=== PATIENT | male | born 1950 | race Caucasian/White ===

== ENCOUNTER → 2017-05-27 | Outpatient (CLI) | payer MEDICARE, SELFPAY | PROVIDERS: PCP Internal Medicine Adolescent Medicine; Visit Provider Internal Medicine Adolescent Medicine | DX: R91.1 Solitary pulmonary nodule (principal) | CPT/HCPCS: 71250 ==

== ENCOUNTER 2017-07-08 11:22 | Outpatient (CLI) | payer MEDICARE, SELFPAY ==
[2017-07-08 15:04] LABS: PHA INR Fingerstick 1.8 (0.9-1.1)
== END 2017-07-08 15:24 | disposition home or self-care (01) ==
PROVIDERS: Internal Medicine; PCP Internal Medicine Adolescent Medicine; Visit Provider Internal Medicine Adolescent Medicine
DX: Z79.01 Long term (current) use of anticoagulants (principal); I48.91 Unspecified atrial fibrillation; Z51.81 Encounter for therapeutic drug level monitoring
CPT/HCPCS: 85610

== ENCOUNTER 2017-07-29 10:50 | Outpatient (CLI) | payer MEDICARE, SELFPAY | END 2017-07-29 11:59 | disposition home or self-care (01) | LOC: ACC 10:52 | PROVIDERS: Family Provider Internal Medicine Adolescent Medicine; PCP Internal Medicine Adolescent Medicine; Visit Provider Internal Medicine | DX: Z79.01 Long term (current) use of anticoagulants (principal); Z51.81 Encounter for therapeutic drug level monitoring; I48.91 Unspecified atrial fibrillation | CPT/HCPCS: 85610; 99211; G0463 ==

== ENCOUNTER 2017-09-16 10:56 | Outpatient (CLI) | payer MEDICARE, SELFPAY ==
[2017-09-16 13:39] LABS: PHA INR Fingerstick 2.8 (0.9-1.1)
== END 2017-09-16 13:56 | disposition home or self-care (01) ==
LOC: ACC 10:57
PROVIDERS: Family Provider Internal Medicine Adolescent Medicine; PCP Internal Medicine Adolescent Medicine; Visit Provider Internal Medicine
DX: Z79.01 Long term (current) use of anticoagulants (principal); Z51.81 Encounter for therapeutic drug level monitoring; I48.91 Unspecified atrial fibrillation
CPT/HCPCS: 85610; 99211; G0463

== ENCOUNTER 2017-10-19 09:23 | Outpatient (CLI) | payer MEDICARE, SELFPAY ==
[2017-10-19 14:40] LABS: PHA INR Fingerstick 2.2 (0.9-1.1)
== END 2017-10-19 14:55 | disposition home or self-care (01) ==
LOC: ACC 09:24
PROVIDERS: Family Provider Internal Medicine Adolescent Medicine; PCP Internal Medicine Adolescent Medicine; Visit Provider Internal Medicine
DX: Z79.01 Long term (current) use of anticoagulants (principal); I48.91 Unspecified atrial fibrillation
CPT/HCPCS: 85610; 99211; G0463

== ENCOUNTER → 2017-12-02 10:48 | Outpatient (CLI) | payer MEDICARE, SELFPAY | PROVIDERS: Physician Assistant; PCP Internal Medicine Adolescent Medicine; Visit Provider Internal Medicine | DX: Z79.01 Long term (current) use of anticoagulants (principal); Z51.81 Encounter for therapeutic drug level monitoring | CPT/HCPCS: 85610; 99211; G0463 ==

== ENCOUNTER 2018-01-12 10:51 | Outpatient (CLI) | payer MEDICARE, SELFPAY ==
[2018-01-12 16:04] LABS: PHA INR Fingerstick 1.9 (0.9-1.1)
== END 2018-01-12 16:08 | disposition home or self-care (01) ==
LOC: ACC 10:53
PROVIDERS: PCP Internal Medicine Adolescent Medicine; Visit Provider Internal Medicine
DX: Z79.01 Long term (current) use of anticoagulants (principal); Z51.81 Encounter for therapeutic drug level monitoring; I48.91 Unspecified atrial fibrillation
CPT/HCPCS: 85610; 99211; G0463

== ENCOUNTER → 2018-01-25 13:20 | Outpatient (CLI) | payer MEDICARE, SELFPAY ==
--- NOTE | 2018-01-25 13:22 | CA_ITS ---
PROCEDURE: 2-D M-mode and color Doppler study INDICATIONS FOR THE TEST: Chest pain COPD+ Heart Murmur Tobacco Smoking+ Palpitations+ Fatigue Syncope Edema Hypertension+Diabetes Mellitus Rheumatic Fever SOB CHERY Obesity Hyperlipidemia+ Family History HD Additional History afib PATIENT INFORMATION HEIGHT: 71 WEIGHT:184 GENDER: Male B/P:126/71 2-D/M-MODE INTERPRETATION: 2-D MEASUREMENTS OBSERVED VALUES IN CMS Right Ventricular Dimension (RVDd) 2.0 Interventricular Septum (Thickness)(IVsd) 1.0 Left Ventricular Internal Dimensions(LVIDd) 5.2 Left Ventricular Posterior Wall (Thickness)(LVPWd) 1.0 Aortic Root 2.3 Aortic Cusp Separation 1.8 Left Atrial Dimensions (LAD) 3.3 2D 1. Left atrium is qualitatively mildly enlarged, left ventricle is normal size, visually estimated ejection fraction 55% with no obvious regional wall motion abnormality. 2. The right atrium and right ventricle are normal size and contractility. 3. The aortic valve is minimally thickened and fibrosed. 4. The mitral and tricuspid valve leaflets are grossly normal. 5. The pulmonic valve is poorly visualized. 6. No significant pericardial effusion noted. DOPPLER INTERROGATION: Doppler interrogation of the aortic, mitral and tricuspid valvular presence of moderate mitral and mild tricuspid regurgitation, tricuspid regurgitation jet velocity is insufficient for calculation of the right ventricular systolic pressure, grade 1 diastolic dysfunction seen with tissue Doppler evidence of raised left atrial pressure. CONCLUSION: 1. Mildly enlarged left atrium, normal left ventricular size, visually estimated ejection fraction of 55% with no obvious regional wall motion abnormality, grade 1 diastolic dysfunction seen with tissue Doppler evidence of raised left atrial pressure. 2. Moderate mitral and mild tricuspid regurgitation 3. No significant pericardial effusion noted.
== END ==
PROVIDERS: Family Provider Internal Medicine Adolescent Medicine; PCP Internal Medicine Adolescent Medicine; Visit Provider Internal Medicine
DX: I48.91 Unspecified atrial fibrillation (principal); R00.2 Palpitations; I25.10 Atherosclerotic heart disease of native coronary artery without angina pectoris; I10 Essential (primary) hypertension
CPT/HCPCS: 93306

== ENCOUNTER 2018-02-23 10:54 | Outpatient (CLI) | payer MEDICARE, SELFPAY ==
[2018-02-23 16:19] LABS: PHA INR Fingerstick 3.1 (0.9-1.1)
== END 2018-02-23 16:21 | disposition home or self-care (01) ==
LOC: ACC 10:55
PROVIDERS: PCP Internal Medicine Adolescent Medicine; Visit Provider Internal Medicine
DX: Z51.81 Encounter for therapeutic drug level monitoring (principal); Z79.01 Long term (current) use of anticoagulants; I48.91 Unspecified atrial fibrillation
CPT/HCPCS: 85610; 99211; G0463

== ENCOUNTER → 2018-03-02 10:49 | Outpatient (CLI) | payer MEDICARE, SELFPAY ==
[2018-03-02 12:10] LABS: Blood Urea Nitrogen 12 mg/dL (7-18); Calcium 8.7 mg/dL (8.5-10.1); Carbon Dioxide 28 mmol/L (21.0-32.0); Chloride 105 mmol/L (98-107); Creatinine,Serum 0.91 mg/dL (0.70-1.30); Estimated Glomerular Filt Rate 83 ml/min (>60); GFR (African American) 100 ML/MIN (>60); Glucose 89 mg/dL (74-106); Sodium 142 mmol/L (136-145)
== END ==
PROVIDERS: PCP Internal Medicine Adolescent Medicine; Visit Provider Physician Assistant
DX: F17.200 Nicotine dependence, unspecified, uncomplicated (principal); I10 Essential (primary) hypertension; I25.10 Atherosclerotic heart disease of native coronary artery without angina pectoris; I34.0 Nonrheumatic mitral (valve) insufficiency; I48.91 Unspecified atrial fibrillation; J44.9 Chronic obstructive pulmonary disease, unspecified; R00.2 Palpitations; Z79.01 Long term (current) use of anticoagulants
CPT/HCPCS: 36415; 80048

== ENCOUNTER 2018-03-23 10:53 | Outpatient (CLI) | payer MEDICARE, SELFPAY ==
[2018-03-23 13:36] LABS: PHA INR Fingerstick 2.2 (0.9-1.1)
== END 2018-03-23 13:41 | disposition home or self-care (01) ==
LOC: ACC 10:54
PROVIDERS: Family Provider Internal Medicine Adolescent Medicine; PCP Internal Medicine Adolescent Medicine; Visit Provider Internal Medicine
DX: Z51.81 Encounter for therapeutic drug level monitoring (principal); Z79.01 Long term (current) use of anticoagulants; I48.91 Unspecified atrial fibrillation
CPT/HCPCS: 85610; 99211; G0463

== ENCOUNTER 2018-05-10 10:47 | Outpatient (CLI) | payer MEDICARE, SELFPAY ==
[2018-05-10 11:31] LABS: PHA INR Fingerstick 2.3 (0.9-1.1)
== END 2018-05-10 11:36 | disposition home or self-care (01) ==
LOC: ACC 10:49
PROVIDERS: PCP Internal Medicine Adolescent Medicine; Visit Provider Internal Medicine
DX: Z51.81 Encounter for therapeutic drug level monitoring (principal); Z79.01 Long term (current) use of anticoagulants; I48.91 Unspecified atrial fibrillation
CPT/HCPCS: 85610; 99211; G0463

== ENCOUNTER 2018-05-13 10:51 | Outpatient (CLI) | payer MEDICARE, SELFPAY ==
[2018-05-13 12:11] LABS: PHA INR Fingerstick 1.9 (0.9-1.1)
== END 2018-05-13 13:52 | disposition home or self-care (01) ==
LOC: ACC 10:52
PROVIDERS: PCP Internal Medicine Adolescent Medicine; Visit Provider Internal Medicine
DX: Z51.81 Encounter for therapeutic drug level monitoring (principal); Z79.01 Long term (current) use of anticoagulants; I48.91 Unspecified atrial fibrillation
CPT/HCPCS: 85610; 99211; G0463

== ENCOUNTER 2018-06-03 10:43 | Outpatient (CLI) | payer MEDICARE, SELFPAY ==
[2018-06-03 14:44] LABS: PHA INR Fingerstick 2.1 (0.9-1.1)
== END 2018-06-03 15:07 | disposition home or self-care (01) ==
LOC: ACC 10:43
PROVIDERS: PCP Internal Medicine Adolescent Medicine; Visit Provider Internal Medicine
DX: Z51.81 Encounter for therapeutic drug level monitoring (principal); Z79.01 Long term (current) use of anticoagulants; I48.91 Unspecified atrial fibrillation
CPT/HCPCS: 85610; 99211; G0463

== ENCOUNTER 2018-07-15 10:54 | Outpatient (CLI) | payer MEDICARE, SELFPAY ==
[2018-07-15 16:37] LABS: PHA INR Fingerstick 1.9 (0.9-1.1)
== END 2018-07-15 16:41 | disposition home or self-care (01) ==
LOC: ACC 10:56
PROVIDERS: PCP Internal Medicine Adolescent Medicine; Visit Provider Internal Medicine
DX: Z51.81 Encounter for therapeutic drug level monitoring (principal); Z79.01 Long term (current) use of anticoagulants; I48.91 Unspecified atrial fibrillation
CPT/HCPCS: 85610; 99211; G0463

== ENCOUNTER → 2018-07-22 17:24 | Outpatient (CLI) | payer MEDICARE, SELFPAY ==
--- NOTE | 2018-07-22 17:39 | XR_ITS ---
XR knee LT 3V HISTORY: ITS.REASON: POSTERIOR LEFT KNEE PAIN, SYNOVIAL CYST OF THE KNEE ORDERING PHYSICIAN: Tre Biswas MD PATIENT AGE: 67 years COMPARISON: None FINDINGS: No fracture or dislocation. Small suprapatellar effusion is noted. There is a small calcific density medial to the lateral tibial spine consistent with a small loose intra-articular body measuring 4 mm. This is in the popliteal region on the lateral view. There are slight decrease in the joint space medially consistent with mild osteoarthritis IMPRESSION: Mild osteoarthritis with small knee joint effusion and intra-articular small loose body
== END ==
PROVIDERS: PCP Internal Medicine Adolescent Medicine; Visit Provider Internal Medicine Adolescent Medicine
DX: M25.562 Pain in left knee (principal); M71.22 Synovial cyst of popliteal space [Baker], left knee
CPT/HCPCS: 73562

== ENCOUNTER 2018-08-09 10:52 | Outpatient (CLI) | payer MEDICARE, SELFPAY ==
[2018-08-09 11:39] LABS: PHA INR Fingerstick 2.6 (0.9-1.1)
== END 2018-08-09 11:45 | disposition home or self-care (01) ==
LOC: ACC 10:52
PROVIDERS: Physician Assistant; PCP Internal Medicine Adolescent Medicine; Visit Provider Internal Medicine
DX: Z51.81 Encounter for therapeutic drug level monitoring (principal); Z79.01 Long term (current) use of anticoagulants; I48.91 Unspecified atrial fibrillation
CPT/HCPCS: 85610; 99211; G0463

== ENCOUNTER 2018-09-14 11:28 | Outpatient (CLI) | payer MEDICARE, SELFPAY ==
[2018-09-14 15:11] LABS: PHA INR Fingerstick 2.2 (0.9-1.1)
== END 2018-09-14 15:25 | disposition home or self-care (01) ==
LOC: ACC 11:28
PROVIDERS: PCP Internal Medicine Adolescent Medicine; Visit Provider Internal Medicine
DX: Z51.81 Encounter for therapeutic drug level monitoring (principal); Z79.01 Long term (current) use of anticoagulants; I48.91 Unspecified atrial fibrillation
CPT/HCPCS: 85610; 99211; G0463

== ENCOUNTER 2018-10-26 11:27 | Outpatient (CLI) | payer MEDICARE, SELFPAY ==
[2018-10-26 14:38] LABS: PHA INR Fingerstick 2.6 (0.9-1.1)
== END 2018-10-26 14:42 | disposition home or self-care (01) ==
LOC: ACC 11:28
PROVIDERS: PCP Internal Medicine Adolescent Medicine; Visit Provider Internal Medicine Adolescent Medicine
DX: Z51.81 Encounter for therapeutic drug level monitoring (principal); Z79.01 Long term (current) use of anticoagulants; I48.91 Unspecified atrial fibrillation
CPT/HCPCS: 85610; 99211; G0463

== ENCOUNTER 2018-12-07 11:21 | Outpatient (CLI) | payer MEDICARE, SELFPAY ==
[2018-12-07 12:07] LABS: PHA INR Fingerstick 3.3 (0.9-1.1)
== END 2018-12-07 12:09 | disposition home or self-care (01) ==
LOC: ACC 11:22
PROVIDERS: PCP Internal Medicine Adolescent Medicine; Visit Provider Internal Medicine
DX: Z51.81 Encounter for therapeutic drug level monitoring (principal); Z79.01 Long term (current) use of anticoagulants; I48.91 Unspecified atrial fibrillation
CPT/HCPCS: 85610; 99211; G0463

== ENCOUNTER 2019-01-16 10:56 | Outpatient (CLI) | payer MEDICARE, SELFPAY ==
[2019-01-16 11:24] LABS: PHA INR Fingerstick 2.5 (0.9-1.1)
== END 2019-01-16 11:25 | disposition home or self-care (01) ==
LOC: ACC 10:57
PROVIDERS: PCP Internal Medicine Adolescent Medicine; Visit Provider Internal Medicine Adolescent Medicine
DX: Z51.81 Encounter for therapeutic drug level monitoring (principal); Z79.01 Long term (current) use of anticoagulants; I48.91 Unspecified atrial fibrillation
CPT/HCPCS: 85610; 99211; G0463

== ENCOUNTER 2019-02-23 11:24 | Outpatient (CLI) | payer MEDICARE, SELFPAY ==
[2019-02-23 14:41] LABS: PHA INR Fingerstick 2.6 (0.9-1.1)
== END 2019-02-23 14:51 | disposition home or self-care (01) ==
LOC: ACC 11:25
PROVIDERS: PCP Internal Medicine Adolescent Medicine; Visit Provider Internal Medicine Adolescent Medicine
DX: Z51.81 Encounter for therapeutic drug level monitoring (principal); Z79.01 Long term (current) use of anticoagulants; I48.91 Unspecified atrial fibrillation
CPT/HCPCS: 85610; 99211; G0463

== ENCOUNTER → 2019-02-27 12:35 | Outpatient (CLI) | payer MEDICARE, SELFPAY ==
--- NOTE | 2019-02-27 12:35 | CA_ITS ---
APPROVED REPORT EXAM: Comprehensive 2D, Doppler, and color-flow Echocardiogram [employer] Salvager: Carmelita Wharton RVT Ht: 5 ft 10 in Wt: 192lbs BSA: 2.05 BP: 132/76 mmHg Indications: Atrial Fibrillation, CAD, Hypertension,Smoker,Mod MR 2D Dimensions IVSd 1.20 cm M: 0.6-1.2 LVEF (Visual) 79.40 % PWd 1.50 cm M: 0.6 - 1.2 LVDd 3.60 cm M: 4.2 - 5.9 LVDs 1.90 cm M: 2.5 - 4.0 LVOT 2.00 cm (M/F) 1.5-2.5 M-Mode Dimensions LA Diam 3.60 cm (1.9-4.0) LVDd 5.60 cm (3.5-5.7) Ao Diam 3.20 cm (2.0-3.7) LVDs 3.60 cm (3.5-5.7) AV Cusp 1.70 cm (1.5-2.6) IVSd 0.80 cm (0.6-1.1) PWd 1.00 cm (0.6-1.1) EF (Teich) 64.70% FS 35.70% EDV (Teich) 154.00 mL ESV (Teich) 54.40 mL LV Diastology E/A Ratio 0.8 MED E' 7.70 (< 7 cm/sec) E'/MED E' Ratio 10.10 (>14) LAT E' 10.60 (<10 cm/sec) E/LAT E' Ratio 7.30 (>14) Aortic Valve AoV Peak Kendell. 132.00 (50-130 cm/s) AO Peak GR. 7.00 mmHg Mitral Valve MV E Max Kendell. 77.50 (40-130 cm/s) MV A Velocity 96.70 (40-130 cm/s) E/A Ratio 0.80 MV Mean Gr. 2.00 (<2mmHg) MV PHT 90.00 ms MVA PHT 2.4 cm2 Pulmonary Valve PA Accel Time 239.00 (>120 msec) Tricuspid Valve TR P. Velocity 318.00 cm/s Left Ventricle Left atrium is mildly enlarged, left ventricle is normal size, mild concentric left ventricular hypertrophy, visually estimated ejection fraction 55% with no regional wall motion abnormality, endocardial surfaces are somewhat poorly visualized. Grade 1 diastolic dysfunction seen without tissue Doppler evidence of raise left atrial pressure. Right Ventricle Right atrium and right ventricular normal size and contractility. Aortic Valve Aortic valve is minimally thickened and fibrosed. There is no aortic stenosis aortic insufficiency. Mitral Valve Mitral valve leaflets are minimally thickened, there is no mitral stenosis, there is mild mitral regurgitation. Tricuspid Valve Tricuspid valve is grossly normal, there is mild tricuspid regurgitation. Tricuspid regurgitation jet velocity is inadequate for calculation of the right ventricular systolic pressure. Pulmonic Valve Pulmonic valve is poorly visualized. Great Vessels Aortic root is normal size. Pericardium No significant pericardial effusion noted. Conclusion 1. Mildly in the left atrium, normal left ventricular size, mild concentric left ventricular hypertrophy, visually estimated ejection fraction 55% with no regional wall motion abnormality, grade 1 diastolic dysfunction seen without tissue Doppler evidence of raise left atrial pressure. 2. Mild mitral and tricuspid regurgitation. 3. No significant pericardial effusion noted. Electronically signed by : Fly Thrasher, 02/28/2019 06:28:24
== END ==
PROVIDERS: PCP Internal Medicine Adolescent Medicine; Visit Provider Physician Assistant
DX: I34.0 Nonrheumatic mitral (valve) insufficiency (principal); I48.2 Chronic atrial fibrillation
CPT/HCPCS: 93306

== ENCOUNTER 2019-04-03 11:22 | Outpatient (CLI) | payer MEDICARE, SELFPAY ==
[2019-04-03 11:45] LABS: PHA INR Fingerstick 2.3 (0.9-1.1)
== END 2019-04-03 11:46 | disposition home or self-care (01) ==
LOC: ACC 11:23
PROVIDERS: PCP Internal Medicine Adolescent Medicine; Visit Provider Internal Medicine Adolescent Medicine
DX: Z51.81 Encounter for therapeutic drug level monitoring (principal); Z79.01 Long term (current) use of anticoagulants; I48.91 Unspecified atrial fibrillation
CPT/HCPCS: 85610; 99211; G0463

== ENCOUNTER 2019-05-15 11:29 | Outpatient (CLI) | payer MEDICARE, SELFPAY ==
[2019-05-15 14:26] LABS: PHA INR Fingerstick 2.9 (0.9-1.1)
== END 2019-05-15 15:34 | disposition home or self-care (01) ==
LOC: ACC 11:30
PROVIDERS: PCP Internal Medicine Adolescent Medicine; Visit Provider Internal Medicine Adolescent Medicine
DX: Z51.81 Encounter for therapeutic drug level monitoring (principal); Z79.01 Long term (current) use of anticoagulants
CPT/HCPCS: 85610; 99211; G0463

== ENCOUNTER 2019-06-26 11:21 | Outpatient (CLI) | payer MEDICARE, SELFPAY ==
[2019-06-26 13:41] LABS: PHA INR Fingerstick 2.8 (0.9-1.1)
== END 2019-06-26 13:49 | disposition home or self-care (01) ==
PROVIDERS: PCP Internal Medicine Adolescent Medicine; Visit Provider Internal Medicine Adolescent Medicine
DX: Z51.81 Encounter for therapeutic drug level monitoring (principal); Z79.01 Long term (current) use of anticoagulants; I48.91 Unspecified atrial fibrillation
CPT/HCPCS: 85610; 99211; G0463

== ENCOUNTER → 2019-07-05 16:10 | Outpatient (CLI) | payer MEDICARE, SELFPAY ==
[2019-07-05 16:44] LABS: Basophils # 0.1 K/mm3 (0-0.2); Basophils % 0.8 % (0.1-2.0); Eosinophils # 0.4 K/mm3 (0.0-0.4); Eosinophils % 4.3 % (0.1-12.0); Hematocrit 44.3 % (42.0-52.0); Hemoglobin 14.3 g/dL (14.1-18.0); Lymphocytes # 2.5 K/mm3 (0.7-4.5); Lymphocytes % 24.6 % (10-50); Mean Corpuscular HGB Conc 32.3 g/dL (31.8-35.4); Mean Corpuscular Hemoglobin 29.9 pg (27.0-31.2); Mean Corpuscular Volume 92.5 fl (80-94); Mean Platelet Volume 9.3 fl (7.4-10.4); Monocytes # 0.5 K/mm3 (0.1-1.0); Monocytes % 4.7 % (1.7-9.3); Neutrophils # 6.7 K/mm3 (1.8-7.8); Neutrophils % 65.5 % (37.0-80.0); Platelet Count 265 K/mm3 (142-424); Red Blood Count 4.79 M/mm3 (4.60-6.20); Red Cell Distribution Width 12.8 % (11.5-17.5); White Blood Count 10.3 K/mm3 (4.8-10.8)
[2019-07-05 17:56] LABS: Prothrombin Time 24.9 seconds (9.4-11.8)
[2019-07-05 19:47] LABS: Alanine Aminotransferase 32 U/L (12-78); Albumin Level 3.6 gm/dL (3.4-5.0); Alkaline Phosphatase 103 U/L (46-116); Anion Gap 11.5 mEq/L (5-15); Aspartate Amino Transferase 25 U/L (15-37); Bilirubin,Total 0.3 mg/dL (0.2-1.0); Blood Urea Nitrogen 16 mg/dL (7-18); Calcium 8.9 mg/dL (8.5-10.1); Carbon Dioxide 30 mmol/L (21.0-32.0); Chloride 105 mmol/L (98-107); Chol/HDL Ratio 3.4 (1-3.5); Cholesterol 144 mg/dL (140-200); Creatinine,Serum 1.11 mg/dL (0.70-1.30); Estimated Glomerular Filt Rate 66 ml/min (>60); GFR (African American) 79 ML/MIN (>60); Globulin 3.7 gm/dl (1.3-3.2); Glucose 86 mg/dL (74-106); HDL Cholesterol 42 mg/dL (27-67); LDL Cholesterol 64 mg/dL (0-130); Potassium 4.5 mmoL/L (3.5-5.1); Sodium 142 mmol/L (136-145); Thyroid Stimulating Hormone 0.87 uIU/ml (0.358-3.740); Total Protein,Serum 7.3 gm/dL (6.4-8.2); Triglycerides 190 mg/dL (30-200); VLDL Cholesterol 38 mg/dL (0-40)
== END ==
PROVIDERS: Visit Provider Internal Medicine Adolescent Medicine
DX: I48.0 Paroxysmal atrial fibrillation (principal); E78.5 Hyperlipidemia, unspecified
CPT/HCPCS: 36415; 80053; 80061; 84443; 85025; 85610

== ENCOUNTER 2019-08-07 13:23 | Outpatient (CLI) | payer MEDICARE, SELFPAY | END 2019-08-07 14:49 | disposition home or self-care (01) | LOC: ACC 13:24 | PROVIDERS: PCP Internal Medicine Adolescent Medicine; Visit Provider Internal Medicine Adolescent Medicine | DX: Z51.81 Encounter for therapeutic drug level monitoring (principal); Z79.01 Long term (current) use of anticoagulants; I48.91 Unspecified atrial fibrillation | CPT/HCPCS: 85610; 99211; G0463 ==

== ENCOUNTER 2019-11-01 09:16 | Outpatient (CLI) | payer MEDICARE, SELFPAY ==
[2019-11-01 11:30] LABS: PHA INR Fingerstick 1.9 (0.9-1.1)
== END 2019-11-01 11:52 | disposition home or self-care (01) ==
LOC: ACC 09:17
PROVIDERS: PCP Internal Medicine Adolescent Medicine; Visit Provider Internal Medicine Adolescent Medicine
DX: Z51.81 Encounter for therapeutic drug level monitoring (principal); Z79.01 Long term (current) use of anticoagulants; I48.91 Unspecified atrial fibrillation
CPT/HCPCS: 85610; 99211; G0463

== ENCOUNTER 2019-12-13 10:52 | Outpatient (CLI) | payer MEDICARE, SELFPAY ==
[2019-12-13 16:26] LABS: PHA INR Fingerstick 2.2 (0.9-1.1)
== END 2019-12-13 16:27 | disposition home or self-care (01) ==
LOC: ACC 10:53
PROVIDERS: PCP Internal Medicine Adolescent Medicine; Visit Provider Internal Medicine Adolescent Medicine
DX: Z51.81 Encounter for therapeutic drug level monitoring (principal); Z79.01 Long term (current) use of anticoagulants; I48.91 Unspecified atrial fibrillation
CPT/HCPCS: 85610; 99211; G0463

== ENCOUNTER 2020-01-17 10:53 | Outpatient (CLI) | payer MEDICARE, SELFPAY ==
[2020-01-17 14:16] LABS: PHA INR Fingerstick 1.8 (0.9-1.1)
== END 2020-01-17 14:18 | disposition home or self-care (01) ==
LOC: ACC 10:54
PROVIDERS: PCP Internal Medicine Adolescent Medicine; Visit Provider Internal Medicine Adolescent Medicine
DX: I48.20 Chronic atrial fibrillation, unspecified (principal)
CPT/HCPCS: 85610; 99211; G0463

== ENCOUNTER 2020-02-07 10:24 | Outpatient (CLI) | payer MEDICARE, SELFPAY ==
[2020-02-07 11:01] LABS: PHA INR Fingerstick 2.3 (0.9-1.1)
== END 2020-02-07 11:05 | disposition home or self-care (01) ==
LOC: ACC 10:26
PROVIDERS: PCP Internal Medicine Adolescent Medicine; Visit Provider Internal Medicine Adolescent Medicine
DX: Z51.81 Encounter for therapeutic drug level monitoring (principal); Z79.01 Long term (current) use of anticoagulants; I48.91 Unspecified atrial fibrillation
CPT/HCPCS: 85610; 99211; G0463

== ENCOUNTER 2020-08-14 10:30 | Outpatient (CLI) | payer MEDICARE, SELFPAY ==
[2020-08-14 11:33] LABS: PHA INR Fingerstick 2.5 (0.9-1.1)
== END 2020-08-14 11:36 | disposition home or self-care (01) ==
LOC: ACC 10:31
PROVIDERS: PCP Internal Medicine Adolescent Medicine; Visit Provider Internal Medicine Adolescent Medicine
DX: Z51.81 Encounter for therapeutic drug level monitoring (principal); Z79.01 Long term (current) use of anticoagulants; I48.91 Unspecified atrial fibrillation
CPT/HCPCS: 85610; 99211; G0463

== ENCOUNTER 2020-09-25 10:57 | Outpatient (CLI) | payer MEDICARE, SELFPAY ==
[2020-09-25 12:48] LABS: PHA INR Fingerstick 2.4 (0.9-1.1)
== END 2020-09-25 12:52 | disposition home or self-care (01) ==
LOC: ACC 10:58
PROVIDERS: PCP Internal Medicine Adolescent Medicine; Visit Provider Internal Medicine Adolescent Medicine
DX: Z51.81 Encounter for therapeutic drug level monitoring (principal); Z79.01 Long term (current) use of anticoagulants; I48.91 Unspecified atrial fibrillation
CPT/HCPCS: 85610; 99211; G0463

== ENCOUNTER → 2020-12-10 15:55 | Outpatient (CLI) | payer MEDICARE, SELFPAY ==
[2020-12-10 17:04] LABS: Bilirubin,Unconjugated 0.1 mg/dL (0.0-1.1)
[2020-12-10 17:05] LABS: Alanine Aminotransferase 25 U/L (12-78); Albumin Level 4.2 g/dl (3.5-5.0); Alkaline Phosphatase 115 U/L (38-126); Aspartate Amino Transferase 30 U/L (17-59); Bilirubin,Direct 0.3 mg/dl (0.0-0.4); Bilirubin,Indirect 0.1 mg/dL (0.0-0.9); Bilirubin,Total 0.4 mg/dl (0.2-1.3); Chol/HDL Ratio 3.1 (1-3.5); Cholesterol 138 mg/dl (140-200); HDL Cholesterol 45 mg/dl (40-60); Total Protein,Serum 7.2 g/dl (6.3-8.2); Triglycerides 158 mg/dl (30-150); VLDL Cholesterol 32 mg/dL (0-40)
[2020-12-10 17:16] LABS: Direct LDL Cholesterol 64.41 mg/dL (100-129)
== END ==
PROVIDERS: Visit Provider Urology
DX: E78.5 Hyperlipidemia, unspecified (principal); F17.200 Nicotine dependence, unspecified, uncomplicated; I10 Essential (primary) hypertension; I25.10 Atherosclerotic heart disease of native coronary artery without angina pectoris; I48.20 Chronic atrial fibrillation, unspecified; Z79.01 Long term (current) use of anticoagulants; J44.1 Chronic obstructive pulmonary disease with (acute) exacerbation; Z51.81 Encounter for therapeutic drug level monitoring
CPT/HCPCS: 36415; 80061; 80076

== ENCOUNTER 2020-12-17 09:25 | Outpatient (CLI) | payer MEDICARE, SELFPAY ==
[2020-12-17 10:16] LABS: PHA INR Fingerstick 2.5 (0.9-1.1)
== END 2020-12-17 10:19 | disposition home or self-care (01) ==
LOC: ACC 09:26
PROVIDERS: PCP Internal Medicine Adolescent Medicine; Visit Provider Internal Medicine Adolescent Medicine
DX: Z51.81 Encounter for therapeutic drug level monitoring (principal); Z79.01 Long term (current) use of anticoagulants
CPT/HCPCS: 85610; 99211; G0463

== ENCOUNTER → 2021-01-15 07:20 | Outpatient (CLI) | payer MEDICARE, SELFPAY ==
--- NOTE | 2021-01-15 07:27 | CT_ITS ---
PROCEDURE: CT LUNG SCREENING CLINICAL INDICATION: CURRENT SMOKER COMPARISON: CT [facility] CT CHEST W/O CONTRAST from 05/27/2017 TECHNIQUE: The exam was performed on a GE Light Speed [address] scanner using 2.90 mGy CTDI. A low dose helical CT CHEST was performed on a multi-detector scanner. All CT scans at the facility use one or more dose reduction, viz: automated exposure control, ma/kV adjustment per patient size (including targeted exams where dose is matched to indication, i.e. head), or iterative reconstruction technique. The LDCT was performed in a facility that meets the criteria for the screening program. Data regarding this exam was submitted to ACR which is an approved registry. The order for this exam indicates that it came as a result of a lung cancer screening counseling shard decision-making visit that included all the elements required of such a visit including smoking cessation. The radiologist interpreting this exam meets the CMS criteria for the LDCT lung cancer screening program. The exam is reported using the Lung-RADS classification scale and reported to the ACR registry. NOTE: This study was performed for the specific purposes of lung cancer screening and is not an alternative to diagnostic chest CT. RADIATION DOSE: CTDI vol(CT dose Index-volume) = 2.90mG DLP (Dose Length Product) = 107.5 MGy-cm FINDINGS: There are few scattered small/less than 4 mm nodular opacities some of which are calcified. No suspicious nodules evident. COPD changes with bronchial thickening OTHER FINDINGS: Mild dilatation of the proximal aspect of the SMA at 1.3 cm not significantly changed. Gynecomastia. There are few small mediastinal lymph nodes unchanged. IMPRESSION: Lung-RADS Category 2 Benign Appearance or Behavior Follow-up: Continue annual screening with LDCT in 12 months Dictated by: Marcio East MD 01/20/2021 06:59 Marcio East MD in [place] 01/20/2021 06:59
== END ==
PROVIDERS: PCP Internal Medicine Adolescent Medicine; Visit Provider Internal Medicine Adolescent Medicine
DX: Z87.891 Personal history of nicotine dependence (principal); Z12.2 Encounter for screening for malignant neoplasm of respiratory organs
CPT/HCPCS: 71271

== ENCOUNTER 2021-01-28 10:38 | Outpatient (CLI) | payer MEDICARE, SELFPAY ==
[2021-01-28 11:36] LABS: PHA INR Fingerstick 2.6 (0.9-1.1)
== END 2021-01-28 15:20 | disposition home or self-care (01) ==
LOC: ACC 10:39
PROVIDERS: PCP Internal Medicine Adolescent Medicine; Visit Provider Internal Medicine Adolescent Medicine
DX: Z51.81 Encounter for therapeutic drug level monitoring (principal); Z79.01 Long term (current) use of anticoagulants; I48.91 Unspecified atrial fibrillation
CPT/HCPCS: 85610; 99211; G0463

== ENCOUNTER → 2021-03-07 20:03 | Outpatient (CLI) | payer MEDICARE, SELFPAY ==
[2021-03-07 20:01] LABS: Coronavirus 19, PCR Not Detected (NotDetected); Influenza A, PCR Not Detected (NotDetected); Influenza B, PCR Not Detected (NotDetected)
== END ==
PROVIDERS: Visit Provider Nurse Practitioner Family
DX: Z20.822 Contact with and (suspected) exposure to COVID-19 (principal)
CPT/HCPCS: C9803; U0003; U0005

== ENCOUNTER → 2021-03-10 08:24 | Outpatient (CLI) | payer MEDICARE, SELFPAY | PROVIDERS: Visit Provider Nurse Practitioner Family | DX: Z20.822 Contact with and (suspected) exposure to COVID-19 (principal) | CPT/HCPCS: C9803; U0003; U0005 ==

== ENCOUNTER 2021-03-26 13:30 | Outpatient (CLI) | payer MEDICARE, SELFPAY ==
[2021-03-26 14:25] LABS: PHA INR Fingerstick 2.5 (0.9-1.1)
== END 2021-03-26 16:21 | disposition home or self-care (01) ==
LOC: ACC 13:32
PROVIDERS: PCP Internal Medicine Adolescent Medicine; Visit Provider Internal Medicine
DX: Z51.81 Encounter for therapeutic drug level monitoring (principal); Z79.01 Long term (current) use of anticoagulants; I48.91 Unspecified atrial fibrillation
CPT/HCPCS: 85610; 99211; G0463

== ENCOUNTER 2021-04-28 10:51 | Outpatient (CLI) | payer MEDICARE, SELFPAY ==
[2021-04-28 11:23] LABS: PHA INR Fingerstick 2.4 (0.9-1.1)
== END 2021-04-28 11:27 | disposition home or self-care (01) ==
LOC: ACC 10:52
PROVIDERS: PCP Internal Medicine Adolescent Medicine; Visit Provider Internal Medicine Adolescent Medicine
DX: Z51.81 Encounter for therapeutic drug level monitoring (principal); Z79.01 Long term (current) use of anticoagulants; I48.91 Unspecified atrial fibrillation
CPT/HCPCS: 85610; 99211; G0463

== ENCOUNTER 2021-06-16 14:32 | Outpatient (CLI) | payer MEDICARE, SELFPAY ==
[2021-06-16 15:26] LABS: PHA INR Fingerstick 1.8 (0.9-1.1)
== END 2021-06-16 15:26 | disposition home or self-care (01) ==
LOC: ACC 14:34
PROVIDERS: PCP Internal Medicine Adolescent Medicine; Visit Provider Internal Medicine Adolescent Medicine
DX: Z51.81 Encounter for therapeutic drug level monitoring (principal); Z79.01 Long term (current) use of anticoagulants; I48.91 Unspecified atrial fibrillation
CPT/HCPCS: 85610; 99211; G0463

== ENCOUNTER → 2021-06-25 15:09 | Outpatient (CLI) | payer MEDICARE, SELFPAY ==
[2021-06-25 15:13] LABS: Adenovirus,PCR Not Detected (NotDetected); Bordetella Pertussis Not Detected (NotDetected); Chlamydophila Pneumoniae, PCR Not Detected (NotDetected); Coronavirus 19, PCR Not Detected (NotDetected); Coronavirus 229E Not Detected (NotDetected); Coronavirus NL63 Not Detected (NotDetected); Coronavirus OC43 Not Detected (NotDetected); Coronovirus HKU1,PCR Not Detected (NotDetected); Human Metapneumovirus Not Detected (NotDetected); Influenza A, PCR Not Detected (NotDetected); Influenza AH1, 2009 Not Detected (NotDetected); Influenza AH1, PCR Not Detected (NotDetected); Influenza B, PCR Not Detected (NotDetected); Mycoplasma Pneumoniae, PCR Not Detected (NotDetected); Parainfluenza 1, PCR Not Detected (NotDetected); Parainfluenza 2, PCR Not Detected (NotDetected); Parainfluenza 3, PCR Not Detected (NotDetected); Parainfluenza 4, PCR Not Detected (NotDetected); Respiratory Syncytial Virus Not Detected (NotDetected); Rhinovirus/Enterovirus Not Detected (NotDetected)
[2021-06-25 18:31] LABS: Influenza AH3,PCR Detected (NotDetected)
== END ==
PROVIDERS: Visit Provider Emergency Medicine
DX: R05.9 Cough, unspecified (principal); Z20.822 Contact with and (suspected) exposure to COVID-19; J11.1 Influenza due to unidentified influenza virus with other respiratory manifestations
CPT/HCPCS: 87581; 87632; 87798; C9803; U0003; U0005

== ENCOUNTER 2021-07-07 10:56 | Outpatient (CLI) | payer MEDICARE, SELFPAY ==
[2021-07-07 15:01] LABS: PHA INR Fingerstick 2.4 (0.9-1.1)
== END 2021-07-07 15:19 | disposition home or self-care (01) ==
LOC: ACC 10:57
PROVIDERS: PCP Internal Medicine Adolescent Medicine; Visit Provider Internal Medicine Adolescent Medicine
DX: Z51.81 Encounter for therapeutic drug level monitoring (principal); Z79.01 Long term (current) use of anticoagulants; I48.91 Unspecified atrial fibrillation
CPT/HCPCS: 85610; 99211; G0463

== ENCOUNTER 2021-08-18 10:53 | Outpatient (CLI) | payer MEDICARE, SELFPAY ==
[2021-08-18 16:41] LABS: PHA INR Fingerstick 2.1 (0.9-1.1)
== END 2021-08-18 16:44 | disposition home or self-care (01) ==
LOC: ACC 10:54
PROVIDERS: PCP Internal Medicine Adolescent Medicine; Visit Provider Internal Medicine Adolescent Medicine
DX: Z51.81 Encounter for therapeutic drug level monitoring (principal); Z79.01 Long term (current) use of anticoagulants; I48.91 Unspecified atrial fibrillation
CPT/HCPCS: 85610; 99211; G0463

== ENCOUNTER 2021-09-29 11:00 | Outpatient (CLI) | payer MEDICARE, SELFPAY ==
[2021-09-29 14:52] LABS: PHA INR Fingerstick 1.9 (0.9-1.1)
== END 2021-09-29 15:01 | disposition home or self-care (01) ==
LOC: ACC 11:00
PROVIDERS: PCP Internal Medicine Adolescent Medicine; Visit Provider Internal Medicine Adolescent Medicine
DX: Z51.81 Encounter for therapeutic drug level monitoring (principal); Z79.01 Long term (current) use of anticoagulants; I48.91 Unspecified atrial fibrillation
CPT/HCPCS: 85610; 99211; G0463

== ENCOUNTER 2021-11-10 10:54 | Outpatient (CLI) | payer MEDICARE, SELFPAY ==
[2021-11-10 13:56] LABS: PHA INR Fingerstick 2.2 (0.9-1.1)
== END 2021-11-10 14:43 | disposition home or self-care (01) ==
LOC: ACC 10:56
PROVIDERS: PCP Internal Medicine Adolescent Medicine; Visit Provider Internal Medicine Adolescent Medicine
DX: Z51.81 Encounter for therapeutic drug level monitoring (principal); Z79.01 Long term (current) use of anticoagulants; I48.91 Unspecified atrial fibrillation
CPT/HCPCS: 85610; 99211; G0463

== ENCOUNTER 2021-12-22 10:50 | Outpatient (CLI) | payer MEDICARE, SELFPAY | END 2021-12-22 11:37 | disposition home or self-care (01) | LOC: ACC 10:52 | PROVIDERS: PCP Internal Medicine Adolescent Medicine; Visit Provider Internal Medicine Adolescent Medicine | DX: Z51.81 Encounter for therapeutic drug level monitoring (principal); Z79.01 Long term (current) use of anticoagulants | CPT/HCPCS: 85610; 99211; G0463 ==

== ENCOUNTER 2022-02-04 15:08 | Outpatient (CLI) | payer MEDICARE, SELFPAY ==
[2022-02-04 15:36] LABS: PHA INR Fingerstick 2.2 (0.9-1.1)
== END 2022-02-04 15:51 | disposition home or self-care (01) ==
LOC: ACC 15:09
PROVIDERS: PCP Internal Medicine Adolescent Medicine; Visit Provider Internal Medicine Adolescent Medicine
DX: Z51.81 Encounter for therapeutic drug level monitoring (principal); Z79.01 Long term (current) use of anticoagulants; I48.91 Unspecified atrial fibrillation
CPT/HCPCS: 85610; 99211; G0463

== ENCOUNTER → 2022-03-16 11:05 | Outpatient (CLI) | payer MEDICARE, SELFPAY ==
[2022-03-16 14:59] LABS: PHA INR Fingerstick 2.1 (0.9-1.1)
== END ==
PROVIDERS: PCP Internal Medicine Adolescent Medicine; Visit Provider Internal Medicine Adolescent Medicine
DX: Z51.81 Encounter for therapeutic drug level monitoring (principal); Z79.01 Long term (current) use of anticoagulants; I48.91 Unspecified atrial fibrillation
CPT/HCPCS: 85610; 99211; G0463

== ENCOUNTER 2022-04-27 10:49 | Outpatient (CLI) | payer MEDICARE, SELFPAY ==
[2022-04-27 13:48] LABS: PHA INR Fingerstick 2.1 (0.9-1.1)
== END 2022-04-27 13:54 ==
LOC: ACC 10:50
PROVIDERS: PCP Internal Medicine Adolescent Medicine; Visit Provider Internal Medicine Adolescent Medicine
DX: Z51.81 Encounter for therapeutic drug level monitoring (principal); Z79.01 Long term (current) use of anticoagulants; I48.91 Unspecified atrial fibrillation
CPT/HCPCS: 85610; 99211; G0463

== ENCOUNTER 2022-06-08 10:59 | Outpatient (CLI) | payer MEDICARE, SELFPAY | END 2022-06-08 15:56 | LOC: ACC 11:02 | PROVIDERS: PCP Internal Medicine Adolescent Medicine; Visit Provider Internal Medicine Adolescent Medicine | DX: Z51.81 Encounter for therapeutic drug level monitoring (principal); Z79.01 Long term (current) use of anticoagulants; I48.91 Unspecified atrial fibrillation | CPT/HCPCS: 85610; 99211; G0463 ==

== ENCOUNTER 2022-07-20 10:59 | Outpatient (CLI) | payer MEDICARE, SELFPAY ==
[2022-07-20 11:18] LABS: PHA INR Fingerstick 1.9 (0.9-1.1)
== END 2022-07-20 11:19 ==
LOC: ACC 11:00
PROVIDERS: PCP Internal Medicine Adolescent Medicine; Visit Provider Internal Medicine Adolescent Medicine
DX: Z51.81 Encounter for therapeutic drug level monitoring (principal); Z79.01 Long term (current) use of anticoagulants; I48.91 Unspecified atrial fibrillation
CPT/HCPCS: 85610; 99211; G0463

== ENCOUNTER 2022-08-31 10:53 | Outpatient (CLI) | payer MEDICARE, SELFPAY | END 2022-08-31 11:27 | LOC: ACC 10:54 | PROVIDERS: PCP Internal Medicine Adolescent Medicine; Visit Provider Internal Medicine Adolescent Medicine | DX: Z51.81 Encounter for therapeutic drug level monitoring (principal); Z79.01 Long term (current) use of anticoagulants; I48.91 Unspecified atrial fibrillation | CPT/HCPCS: 85610; 99211; G0463 ==

== ENCOUNTER 2022-11-06 10:54 | Outpatient (CLI) | payer MEDICARE, SELFPAY ==
[2022-11-06 14:11] LABS: PHA INR Fingerstick 2.2 (0.9-1.1)
== END 2022-11-06 14:12 ==
LOC: ACC 10:55
PROVIDERS: PCP Internal Medicine Adolescent Medicine; Visit Provider Internal Medicine Adolescent Medicine
DX: Z51.81 Encounter for therapeutic drug level monitoring (principal); Z79.01 Long term (current) use of anticoagulants; I48.91 Unspecified atrial fibrillation
CPT/HCPCS: 85610; 99211; G0463

== ENCOUNTER 2022-12-18 10:51 | Outpatient (CLI) | payer MEDICARE, SELFPAY ==
[2022-12-18 12:56] LABS: PHA INR Fingerstick 2.2 (0.9-1.1)
== END 2022-12-18 15:13 ==
LOC: ACC 10:51
PROVIDERS: PCP Internal Medicine Adolescent Medicine; Visit Provider Internal Medicine Adolescent Medicine
DX: Z79.01 Long term (current) use of anticoagulants (principal); Z51.81 Encounter for therapeutic drug level monitoring
CPT/HCPCS: 85610; 99211; G0463

== ENCOUNTER 2023-03-05 11:35 | Outpatient (CLI) | payer MEDICARE, SELFPAY ==
[2023-03-05 15:10] LABS: PHA INR Fingerstick 2.6 (0.9-1.1)
== END 2023-03-05 15:29 ==
LOC: ACC 11:37
PROVIDERS: PCP Internal Medicine Adolescent Medicine; Visit Provider Internal Medicine Adolescent Medicine
DX: Z79.01 Long term (current) use of anticoagulants (principal); Z51.81 Encounter for therapeutic drug level monitoring; I48.91 Unspecified atrial fibrillation
CPT/HCPCS: 85610; 99211; G0463

== ENCOUNTER 2023-04-09 11:20 | Outpatient (CLI) | payer MEDICARE, SELFPAY ==
[2023-04-09 14:44] LABS: PHA INR Fingerstick 2.6 (0.9-1.1)
== END 2023-04-09 14:59 ==
LOC: ACC 11:21
PROVIDERS: PCP Internal Medicine Adolescent Medicine; Visit Provider Internal Medicine Adolescent Medicine
DX: Z79.01 Long term (current) use of anticoagulants (principal); Z51.81 Encounter for therapeutic drug level monitoring; I48.91 Unspecified atrial fibrillation
CPT/HCPCS: 85610; 99211; G0463

== ENCOUNTER 2023-05-21 11:10 | Outpatient (CLI) | payer MEDICARE, SELFPAY | END 2023-05-21 11:42 | LOC: ACC 11:11 | PROVIDERS: PCP Internal Medicine Adolescent Medicine; Visit Provider Internal Medicine Adolescent Medicine | DX: Z79.01 Long term (current) use of anticoagulants (principal); Z51.81 Encounter for therapeutic drug level monitoring | CPT/HCPCS: 85610; 99211; G0463 ==

== ENCOUNTER 2023-06-18 12:42 | Outpatient (CLI) | payer MEDICARE, SELFPAY ==
--- NOTE | 2023-06-18 12:46 | CT_ITS ---
FINAL REPORT TECHNIQUE: Axial CT images of the chest were obtained without contrast. Low-dose protocol was utilized. This study was performed with techniques to keep radiation doses as low as reasonably achievable (ALARA). Individualized dose reduction techniques using automated exposure control or adjustment of mA and/or kV according to the patient's size were employed. CLINICAL HISTORY: H/O TOBACCO USE CURRENT SMOKER 1/2PPD X45 YEARS COMPARISON: 01/15/2021 FINDINGS: CT CHEST WITHOUT, LOW DOSE SCREENING CT Di Vol: 2.90 mGy DLP: 107.86 mGy*cm There are small mediastinal nodes. The heart size is normal. There are moderate coronary artery calcifications. There is no pleural or pericardial effusion. There is mild emphysema. Several calcified granulomas are noted. The lung windows show no new suspicious mass or nodule. There is mild dilatation of the proximal celiac axis which is stable. Limited images of the upper abdomen demonstrate no acute findings. IMPRESSION: LR Category 1: 12 month follow-up low-dose chest CT is recommended. Reviewed, Interpreted and Dictated by Stanley Duckworth III, MD Transcribed by Rachel Mcdaniel Authenticated and [facility]
== END 2023-06-18 23:59 ==
LOC: RAD 12:42
PROVIDERS: PCP Internal Medicine Adolescent Medicine; Visit Provider Internal Medicine Adolescent Medicine
DX: Z87.891 Personal history of nicotine dependence (principal)
CPT/HCPCS: 71271

== ENCOUNTER 2023-07-02 10:53 | Outpatient (CLI) | payer MEDICARE, SELFPAY ==
[2023-07-02 14:02] LABS: PHA INR Fingerstick 2.4 (0.9-1.1)
== END 2023-07-02 14:41 ==
PROVIDERS: PCP Internal Medicine Adolescent Medicine; Visit Provider Internal Medicine Adolescent Medicine
DX: Z79.01 Long term (current) use of anticoagulants (principal); Z51.81 Encounter for therapeutic drug level monitoring; I48.91 Unspecified atrial fibrillation
CPT/HCPCS: 85610; 99211; G0463

== ENCOUNTER 2023-09-06 10:24 | Outpatient (CLI) | payer MEDICARE, SELFPAY | END 2023-09-06 15:34 | LOC: ACC 10:25 | PROVIDERS: PCP Internal Medicine Adolescent Medicine; Visit Provider Internal Medicine Adolescent Medicine | DX: Z79.01 Long term (current) use of anticoagulants (principal); Z51.81 Encounter for therapeutic drug level monitoring; I48.91 Unspecified atrial fibrillation | CPT/HCPCS: 85610; 99211; G0463 ==

== ENCOUNTER 2024-03-03 19:52 | Emergency (ER) | payer MEDICARE, SELFPAY ==
[2024-03-03 19:53] VITALS: BP 167/88; PULSE 78; RESP 19; TEMP 36.8; O2SAT 95; BMI 26.4
--- NOTE | 2024-03-03 20:01 | CT_ITS ---
PROCEDURE INFORMATION: Exam: CT Cervical Spine Without Contrast Exam date and time: 03/03/2024 8:23 PM Age: 73 years old Clinical indication: Injury or trauma; Fall TECHNIQUE: Imaging protocol: Computed tomography of the cervical spine without contrast. Radiation optimization: All CT scans at this facility use at least one of these dose optimization techniques: automated exposure control; mA and/or kV adjustment per patient size (includes targeted exams where dose is matched to clinical indication); or iterative reconstruction. COMPARISON: CT FACIAL BONES WO CON 03/03/2024 8:20 PM FINDINGS: Bones: No acute fracture. Severe degenerative disc space narrowing with moderate disc bulge and uncovertebral spurring throughout the cervical spine with relative sparing of the C2-C3 level. Severe multilevel facet arthropathy with mild grade 1 anterolisthesis of C7. Moderate degenerative changes noted in the atlantodental joint. Right facial fractures partially visualized, as described in the facial bone CT report Lungs: Lung apices are normal. Soft tissues: Unremarkable. IMPRESSION: No acute fracture in the cervical spine. Severe multilevel degenerative changes as noted. Partially visualized right facial fractures.
--- NOTE | 2024-03-03 20:01 | CT_ITS ---
PROCEDURE INFORMATION: Exam: CT Head Without Contrast Exam date and time: 03/03/2024 8:19 PM Age: 73 years old Clinical indication: Injury or trauma; Fall TECHNIQUE: Imaging protocol: Computed tomography of the head without contrast. Radiation optimization: All CT scans at this facility use at least one of these dose optimization techniques: automated exposure control; mA and/or kV adjustment per patient size (includes targeted exams where dose is matched to clinical indication); or iterative reconstruction. COMPARISON: No relevant prior studies available. FINDINGS: Brain: Mild generalized cerebral atrophy. No intracranial mass, hemorrhage or evidence of acute ischemia. Cerebral ventricles: No ventriculomegaly. Paranasal sinuses: Mild mucosal thickening in the right maxillary sinus. No fluid levels. Mastoid air cells: Visualized mastoid air cells are well aerated. Bones: Fractures of the right orbital floor as well as the anterior and posterior maguire of the right maxillary sinus noted. Soft tissues: Soft tissue swelling and gas noted about the right orbit and maxillary sinus. IMPRESSION: No acute intracranial abnormality. Right facial fractures as described.
--- NOTE | 2024-03-03 20:01 | CT_ITS ---
PROCEDURE INFORMATION: Exam: CT Maxillofacial Without Contrast Exam date and time: 03/03/2024 8:20 PM Age: 73 years old Clinical indication: Injury or trauma; Fall TECHNIQUE: Imaging protocol: Computed tomography of the face without contrast. Radiation optimization: All CT scans at this facility use at least one of these dose optimization techniques: automated exposure control; mA and/or kV adjustment per patient size (includes targeted exams where dose is matched to clinical indication); or iterative reconstruction. COMPARISON: CT FACIAL BONES WO CON 03/03/2024 8:20 PM FINDINGS: Orbital cavities: Eye globes appear intact. Intraorbital structures appear normal. No significant herniation of the intraorbital contents. Paranasal sinuses: Mild mucosal thickening and fluid in the right maxillary sinus. Sinuses are otherwise clear. Bones: Mildly displaced fracture involves the posterior aspect of the right orbital floor. There are mildly displaced fractures involving the anterior and posterior wall of the right maxillary sinus. Nondisplaced right zygomatic arch fracture. No other acute fracture. Soft tissues: Superficial right periorbital soft tissue swelling and emphysema as well as moderate amount of emphysema in the soft tissues about the right maxillary sinus. No prominent hematoma. IMPRESSION: Fractures of the right orbital floor, maxillary sinus and zygomatic arch with associated findings as described.
--- NOTE | 2024-03-03 20:03 | ED_ITS ---
<Statement entered by Ruthy Wang MD - 03/04/24 00:40> I was consulted by the [facility], and we discussed the complexity of problems being addressed. I approved the treatment and management plan for this patient's care in the emergency department, thus performing a substantive portion of the medical decision making. Ruthy Wang MD Discharge Plan Disposition Patient Disposition: Xfer Other Condition: Good Prescriptions Prescriptions: No Action acetaminophen 500 mg capsule 500 mg PO Q6H PRN (Reason: PAIN) aspirin [Adult Low Dose Aspirin] 81 mg tablet,delayed release (DR/EC) 81 mg PO ONCE bisoprolol-hydrochlorothiazide 10-6.25 mg tablet 1 tab PO ONCE finasteride 5 mg tablet 5 mg PO ONCE omeprazole 40 mg capsule,delayed release(DR/EC) 40 mg PO DAILY terazosin 5 mg capsule 5 mg PO QHS atorvastatin 40 mg tablet 40 mg PO ONCE warfarin 2.5 mg tablet 2.5 mg PO DAILY Patient Comments: Tue, Thru, David, Obdulia Reganztrkeysha Aerosphere 160-9-4.8 mcg/actuation HFA aerosol inhaler 2 inh INHALATION BID methylprednisolone [Medrol (Efrain)] 4 mg tablets,dose pack See Rx Instructions PO PER PKG DIR Qty: 21 0RF Rx Instructions: PO PER PKG DIR warfarin 5 mg tablet 5 mg PO DAILY Qty: 30 5RF Rx Instructions: take as directed azithromycin [Zithromax Z-Efrain] 250 mg tablet See Rx Instructions PO .COMPLEX Qty: 6 0RF Rx Instructions: For 250 mg dose pack: take 500 mg today (day 1), then 250 mg for 4 days (days 2-5) PO losartan 50 mg tablet See Rx Instructions .ROUTE .COMPLEX Qty: 30 0RF Dose Instruction: TAKE 1 TABLET EVERY DAY Rx Instructions: TAKE 1 TABLET EVERY DAY Referrals Follow up/Referrals: Tre Biswas MD [Primary Care Provider] - See instructions Clinical Impressions Clinical Impression: Orbital floor fracture, Maxillary fracture, Zygomatic arch fracture Stand Alone Forms Stand Alone Forms: Transfer Record - ED Print Language Print Language: Nigerien Discharge ED Provider: Ruthy Wang General Adult HPI General Chief complaint: Fall Stated complaint: ao 03/03, swelling in eye Time Seen by Provider: 03/03/24 19:55 Mode of Arrival: Ambulatory Source of Information: Patient Limitations: No Limitations Description of Symptoms (Recalled from ER Triage Doc. by RN): 73 M presents from home after a mechanical fall outside 1 hour ago. Patient reports hitting his right mandaeism on the wooden ramp and injured his right arm/hand. Patient takes Coumadin daily. Patient states he blew his nose afterwards and the right orbital area blew up. Patient has obvious swelling to this area. Denies LOC, vision changes, or other neurological deficit. Crepitus present on palpation. History of Present Illness HPI narrative: 73-year-old male presents to the ED today after falling on a wooden ramp falling onto his right arm and hand and falling over hitting his right mandaeism and right face. He says he went to blow his nose and had some blood and decided to come onto the hospital. He does take Coumadin every day for A-fib. He is unsure what his last INR was. He does have some bruising on his right wrist and hand but has good range of motion of his hand, wrist and elbow. No shoulder pain. Denies any loss of consciousness. Related Data Home Medications ?Medication ?Instructions ?Recorded ?Confirmed acetaminophen 500 mg capsule 500 mg PO Q6H PRN PAIN 07/12/17 12/11/20 aspirin 81 mg tablet,delayed 81 mg PO ONCE HEART 07/12/17 06/25/21 release (Adult Low Dose Aspirin) bisoprolol 10 1 tab PO ONCE BLOOD PRESSURE 07/12/17 06/25/21 mg-hydrochlorothiazide 6.25 mg tablet finasteride 5 mg tablet 5 mg PO ONCE PROSTATE 07/12/17 06/25/21 omeprazole 40 mg capsule,delayed 40 mg PO DAILY STOMACH 07/12/17 06/25/21 release terazosin 5 mg capsule 5 mg PO QHS PROSTATE 07/12/17 06/25/21 atorvastatin 40 mg tablet 40 mg PO ONCE Cholesterol 07/13/17 06/25/21 warfarin 2.5 mg tablet 2.5 mg PO DAILY Blood thinner 07/13/17 06/25/21 budesonide 160 mcg-glycopyr 9 2 inh inhalation BID 06/25/21 06/25/21 mcg-formot 4.8 mcg/actuation HFA inhaler (Breztri Aerosphere) Previous Rx's ?Medication ?Instructions ?Recorded warfarin 5 mg tablet 5 mg PO DAILY Blood thinner #30 12/23/18 tabs methylprednisolone 4 mg tablets in See Rx Instructions PO PER PKG DIR 06/25/21 a dose pack (Medrol (Efrain)) #21 tabs azithromycin 250 mg tablet See Rx Instructions PO .COMPLEX #6 09/01/21 (Zithromax Z-Efrain) tabs losartan 50 mg tablet See Rx Instructions .Route 07/27/23 .COMPLEX #30 tabs Allergies Allergy/AdvReac Type Severity Reaction Status Date / Time No Known Allergies Allergy Verified 06/25/21 11:06 [facility] Disclaimer: The information contained in this section may have been updated after the patient was seen, as this information can be updated by other users. Social History Smoking Status: Current every day smoker tobacco type: cigarettes second hand exposure: Yes alcohol intake: never substance use type: denies use current occupational status: employed and disabled Travel in the last 8 weeks: None caffeine: Yes ROS Obtained: Yes Systems reviewed as appropriate & no additional complaints except as documented Constitutional Constitutional: Reports system reviewed and no additional complaints, except as documented and Reports as per HPI Physical Exam General General appearance: alert and in no apparent distress Head Head exam: normocephalic Expanded Head Exam Head exam physical: Present abrasion and hematoma Eye Eye exam: Present PERRL, EOMI and periorbital tenderness (On right side) ENT ENT exam: Present normal exam, normal oropharynx and mucous membranes moist Neck Neck exam: Present normal inspection, full ROM and trachea midline Respiratory Respiratory exam: Present normal lung sounds bilaterally Cardiovascular Cardiovascular exam: Present regular rate, normal rhythm, normal heart sounds, +S1 and +S2 Abdominal Exam Abdominal exam: Present soft and normal bowel sounds Extremities Exam Extremities exam: Present normal inspection, full ROM, normal capillary refill and other (Bruising to right wrist and right hand) Neurological Exam Neurological exam: Present alert, oriented X3 and normal gait Skin Skin exam: Present warm, dry, erythema and other (Bruising to right wrist and right hand) Medical Decision Making Medical Records Screening: Per USPSTF and CDC recommendations, given the prevalence of disease in our region, it is our hospital?s policy to screen for HIV and viral Hepatitis for all patients aged 18 and over and those with ongoing risk factors. Hilario Inquiry Pt receiving controlled substance: No Hilario was queried for this patient: No Vital Signs: 03/03/24 19:53 03/03/24 20:30 03/03/24 21:21 Temperature 98.3 F 98.1 F Temperature Source Oral Tympanic Pulse Rate 70 68 Pulse Rate [Left] 78 Respiratory Rate 19 18 18 Blood Pressure 147/84 H 148/77 H Blood Pressure [Right Arm] 167/88 H Blood Pressure Mean 117 Blood Pressure Mean [Right Arm] 114 Blood Pressure Source Automatic Cuff Blood Pressure Source [Right Arm] Automatic Cuff Blood Pressure Position Sitting Blood Pressure Position [Right Arm] Sitting 02 Sat by Pulse Oximetry 95 97 Oxygen Delivery Method Room Air Room Air Room Air Lab Data Lab Results 03/03/24 20:10: WBC 13.5 H, RBC 4.62, Hgb 14.2, Hct 45.1, MCV 97.7 H, MCH 30.8, MCHC 31.5 L, RDW 12.8, Plt Count 294, MPV 9.2, Neut % (Auto) 78.7, Lymph % (Auto) 15.3, [place] % (Auto) 4.7, Eos % (Auto) 1.0, Baso % (Auto) 0.4, Neut # (Auto) 10.6 H, Lymph # (Auto) 2.1, [place] # (Auto) 0.6, Eos # (Auto) 0.1, Baso # (Auto) 0.1, PT 18.3 H, INR 1.72 H, Sodium 142, Potassium 3.5, Chloride 107, Carbon Dioxide 28, Anion Gap 10.5, BUN 22 H, Creatinine 1.50 H, Estimated Creat Clear 53, Estimated GFR 46 L, Est GFR ( Amer) 55 L, Glucose 117 H, Calcium 9.2, Total Bilirubin 0.5, AST 36, ALT 31, Alkaline Phosphatase 74, Total Protein 8.0, Albumin 4.5, Globulin 3.5 H, Albumin/Globulin Ratio 1.3, HIV 1&2 Antibody Rapid Nonreactive 03/03/24 20:10 03/03/24 20:10 Orders (Tests/Meds): ORDERS Category Date Time Status CT cervical spine wo con Stat Cat Scan 03/03/24 20:[address] facial bones wo con Stat Cat Scan 03/03/24 20:[address] head/brain wo con Stat Cat Scan 03/03/24 20:01 Completed CBC [Complete Blood Count Auto Diff] Stat Lab 03/03/24 20:10 Completed Comprehensive Metabolic Panel Stat Lab 03/03/24 20:10 Completed HIV (1&2) Antibody Rapid Stat Lab 03/03/24 20:10 Completed Hep C Ab with Reflex to RNA Stat Lab 03/03/24 20:10 Received PT/INR [Prothrombin Time INR] Stat Lab 03/03/24 20:10 Completed Medical Decision Narrative: Insert review patient is a 73-year-old male presenting to the emergency department for evaluation of mechanical fall prior to arrival. Patient is hemodynamically stable and nontoxic-appearing upon arrival, afebrile. Differential diagnosis includes head injury, hemorrhagic bleed from fall amongst others. Workup will be conducted with hematologic labs, specific imaging including CT of cervical spine, head and facial bones. Initial inventions include scan of head, neck, and face. Imaging informally interpreted by me and remarkable for facial fractures. Formal imaging read remarkable for right orbital floor, anterior and posterior maguire of the right maxillary sinus and right zygomatic arch fractures. Upon repeat evaluation patient's pain is improved. [facility] [place] [facility] Patient's family will take patient POV to the hospital. Critical Care Critical Care Time Critical Care Time: No
[2024-03-03 20:30] VITALS: BP 147/84; PULSE 70; RESP 18; O2SAT 97
[2024-03-03 20:35] LABS: Albumin Level 4.5 g/dl (3.5-5.0); Chloride 107 mmol/L (98-107); Potassium 3.5 mmoL/L (3.5-5.1); Sodium 142 mmol/L (136-145)
[2024-03-03 20:38] LABS: Alanine Aminotransferase 31 U/L (12-78); Albumin/Globulin Ratio 1.3 (1.1-1.8); Alkaline Phosphatase 74 U/L (38-126); Anion Gap 10.5 mEq/L (5-15); Aspartate Amino Transferase 36 U/L (17-59); Bilirubin,Total 0.5 mg/dl (0.2-1.3); Blood Urea Nitrogen 22 mg/dl (9-20); Calcium 9.2 mg/dl (8.4-10.2); Carbon Dioxide 28 mmol/L (22.0-30.0); Creatinine Clearance Estimated 53 mL/min (50-200); Estimated Glomerular Filt Rate 46 ml/min (>60); GFR (African American) 55 ML/MIN (>60); Globulin 3.5 g/dL (1.3-3.2); Glucose 117 mg/dl (74-100)
[2024-03-03 20:41] LABS: INR 1.72 (0.9-1.1); Prothrombin Time 18.3 seconds (10.1-12.5)
--- NOTE | 2024-03-03 20:43 | PC.NURSE ---
Lab called to report a delay in lab results r/t machine issues
[2024-03-03 21:11] LABS: Basophils # 0.1 K/mm3 (0-0.2); Basophils % 0.4 % (0.1-2.0); Eosinophils # 0.1 K/mm3 (0.0-0.4); Hematocrit 45.1 % (42.0-52.0); Hemoglobin 14.2 g/dL (14.1-18.0); Lymphocytes # 2.1 K/mm3 (0.7-4.5); Lymphocytes % 15.3 % (10-50); Mean Corpuscular HGB Conc 31.5 g/dL (31.8-35.4); Mean Corpuscular Hemoglobin 30.8 pg (27.0-31.2); Mean Corpuscular Volume 97.7 fl (80-94); Mean Platelet Volume 9.2 fl (7.4-10.4); Monocytes # 0.6 K/mm3 (0.1-1.0); Monocytes % 4.7 % (1.7-9.3); Neutrophils # 10.6 K/mm3 (1.8-7.8); Neutrophils % 78.7 % (37.0-80.0); Platelet Count 294 K/mm3 (142-424); Red Blood Count 4.62 M/mm3 (4.60-6.20); Red Cell Distribution Width 12.8 % (11.5-17.5); White Blood Count 13.5 K/mm3 (4.8-10.8)
[2024-03-03 21:15] LABS: HIV (1&2) Antibody Rapid NONREACTIVE (NONREACTIVE)
[2024-03-03 21:21] VITALS: BP 148/77; PULSE 68; RESP 18; TEMP 36.7; O2SAT 96
[2024-03-05 08:11] LABS: HCV Ab Non Reactive (Non Reactive)
== END 2024-03-03 21:43 | disposition other institution (70) ==
PROVIDERS: Nurse Practitioner; Emergency Provider Student in an Organized Health Care Education/Training Program; PCP Internal Medicine Adolescent Medicine
DX: S02.31XA Fracture of orbital floor, right side, initial encounter for closed fracture (principal); S02.40CA Maxillary fracture, right side, initial encounter for closed fracture; S02.40EA Zygomatic fracture, right side, initial encounter for closed fracture; S60.221A Contusion of right hand, initial encounter; S60.211A Contusion of right wrist, initial encounter; W17.89XA Other fall from one level to another, initial encounter
CPT/HCPCS: 70450; 70486; 72125; 80053; 85025; 85610; 86803; 87389; 99285

== ENCOUNTER 2024-07-05 11:00 | Outpatient (CLI) | payer MEDICARE, SELFPAY ==
[2024-07-05 11:48] LABS: PHA INR Fingerstick 2.4 (0.9-1.1)
== END 2024-07-05 11:49 ==
PROVIDERS: PCP Internal Medicine Adolescent Medicine; Visit Provider Internal Medicine Adolescent Medicine
DX: Z79.01 Long term (current) use of anticoagulants (principal); I48.91 Unspecified atrial fibrillation
CPT/HCPCS: 85610; 99211; G0463

== ENCOUNTER 2024-08-16 10:57 | Outpatient (CLI) | payer MEDICARE, SELFPAY ==
[2024-08-16 12:54] LABS: PHA INR Fingerstick 2.8 (0.9-1.1)
== END 2024-08-16 12:56 ==
LOC: ACC 10:57
PROVIDERS: PCP Internal Medicine Adolescent Medicine; Visit Provider Internal Medicine Adolescent Medicine
DX: I48.91 Unspecified atrial fibrillation (principal); Z79.01 Long term (current) use of anticoagulants
CPT/HCPCS: 85610; 99211; G0463

== ENCOUNTER 2024-10-11 10:51 | Outpatient (CLI) | payer MEDICARE, SELFPAY ==
[2024-10-11 11:50] LABS: PHA INR Fingerstick 2.6 (0.9-1.1)
== END 2024-10-11 13:40 ==
LOC: ACC 10:51
PROVIDERS: PCP Internal Medicine Adolescent Medicine; Visit Provider Internal Medicine Adolescent Medicine
DX: Z79.01 Long term (current) use of anticoagulants (principal); I48.91 Unspecified atrial fibrillation
CPT/HCPCS: 85610; 99211; G0463

== ENCOUNTER 2024-11-22 10:56 | Outpatient (CLI) | payer MEDICARE, SELFPAY ==
--- OUTSIDE RECORDS SUMMARY | 2024-09-09 17:30 | XMS_ITS ---
Author Organization [facility] Address [address] [facility] [address] [place] [address] Care Team Providers Care Dimension Warehouse Supervisor Name Role Phone Keshav Biswashen Primary Care Provider [phone] Migration, Provider Unavailable Un[facility] Conversion Encounter Medications Medication SIG (Take, Route, Frequency, Duration) Notes Start Date End Date Status Tylenol Extra Strength 500 MG 2 tab(s) orally Q6H prn Active Fenofibrate 54 MG 1 tab(s) orally once a day for 90 days Active Breztri Aerosphere 160 MCG-4.8 MCG-9 MCG/INH 2 PUFF(S) INHALED 2 TIMES A DAY for 90 DAYS *Please review and pick correct strength-formulatio n from [employer] options. If intended option is not shown, discontinue and re-order from Quick Search* Active Multivitamin MULTIPLE VITAMINS 1 CAP(S) ORALLY ONCE A DAY *Please review and pick correct strength-formulatio n from [employer] options. If intended option is not shown, discontinue and re-order from Quick Search* Active Finasteride 5 MG 1 tab(s) orally once a day for 90 days Active Warfarin Sodium 5 MG 1 tab(s) orally 1 tab on MWF and 1/2 tab all other days for 90 days Active Atorvastatin Calcium 40 MG 1 tab(s) orally once a day for 90 days Active Omeprazole 40 MG 1 cap(s) orally once a day for 90 days Active Terazosin HCl 5 MG 1 cap(s) orally once a day (at bedtime) for 90 days Active Bisoprolol-hydroCHLOR Othiazide 10/6.25MG 1 TAB(S) ORALLY ONCE A DAY for 90 DAYS *Please review and pick correct strength-formulatio n from [employer] options. If intended option is not shown, discontinue and re-order from Quick Search* Active Encounters Encounter Location Date Provider Diagnosis [facility] MAL [address] [place], [place] [address] 09/09/2024 Provider Migration Hyperlipemia, idiopathic familial E78.5 [...] 54 MG 1 tab(s) orally once a day for 90 days Breztri Aerosphere 160 MCG-4.8 MCG-9 MCG/INH 2 PUFF(S) INHALED 2 TIMES A DAY for 90 DAYS *Please review and pick correct strength-formulation from [employer] options. If intended option is not shown, discontinue and re-order from Quick Search* Finasteride 5 MG 1 tab(s) orally once a day for 90 days Warfarin Sodium 5 MG 1 tab(s) orally 1 tab on MWF and 1/2 tab all other days for 90 days Atorvastatin Calcium 40 MG 1 tab(s) orally once a day for 90 days Omeprazole 40 MG 1 cap(s) orally once a day for 90 days Terazosin HCl 5 MG 1 cap(s) orally once a day (at bedtime) for 90 days Bisoprolol-hydroCHLOROth iazide 10/6.25MG 1 TAB(S) ORALLY ONCE A DAY for 90 DAYS *Please review and pick correct strength-formulation from [employer] options. If intended option is not shown, discontinue and re-order from Quick Search* Progress Notes * Dami WAGONER:1950 (74 yo M)Acc No.[id number]:09/09/2024 Patient: Tae RICK Provider: Moses Dalal :1950 A ge:74 Y S ex:Male Date:09/09/2024 Address:[facility] [place], [id number] Pcp:Tre Biswas Subjective: * Chief Complaints: * [...] Electronic signature of Prov ider Migration on 11/22/2024 at 11:05 AM EDT Sign off status: Pending * Provider: Moses araujo Migration Date: 09/09/2024 Generated for Reina danielle/Simon/Alisia on: 11/22/2024 11:05 AM EDT
--- OUTSIDE RECORDS SUMMARY | 2024-11-22 11:05 | XMS_ITS | Patient Health Record ---
Author Organization [facility] Address [address] [facility] [address] [place] [address] Care Team Providers Care Right Of Way Agent Name Role Phone Tre Biswas Primary Care Provider Migration, Provider Unavailable Unavailable Allergies No Known Allergies Results Component Value Reference Range Notes M-PHA INR Fingerstick Reviewed date:08/16/2024 02:16:15 PM Interpretation: Performing Lab: Notes/Report: POCINRFS 2.8 0.9-1.1 Results sent to: Tre Biswas MD Pharmacist recommendation for Warfarin therapy is: PATIENT INR 2.8 TODAY VIA FINGERSTICK. RECOMMENDED PATIENT CONTINUE WITH WARFARIN 2.5 MG ON MON/WED/FRI; 5 MG ON WED/WED/ESTRELLA/SAT. FOR DETAILED INFORMATION-PLEASE REVIEW PROGRESS NOTE IN THE ASSESSMENTS AND ANTICOAGULATION CLINIC SECTION ANTICOAGULATION CLINIC IN PCI/CLINICAL REVIEW INDICATION INR RANGE THERAPY FOR DVT, PE, ATRIAL FIB; 2.0 - 3.0 PROPHYLAXIS FOR VTE THERAPY FOR MECHANICAL HEART 2.5 - 3.5 VALVE; PREVENTION OF SYSTEMIC EMBOLISM SECONDARY TO AMI CBC (INCLUDES DIFF/PLT) (639 9) Reviewed date:02/21/2024 08:29:03 AM Interpretation: Performing Lab:CB, [facility], [place]iah PalaciosBgwmPO[address] [place] Eduardo Valverde Notes/Report: NON-FASTING; NON-FASTING; NON-FASTING; NON-FASTING FASTING:YES FASTING: YES WHITE BLOOD CELL COUNT 8.3 3.8-10.8 Thousand/ uL RED BLOOD CELL COUNT 4.58 4.20-5.80 Million/uL HEMOGLOBIN 14.3 13.2-17.1 g/dL HEMATOCRIT 43.0 38.5-50.0 % MCV 93.9 80.0-100.0 fL MCH 31.2 27.0-33.0 pg MCHC 33.3 32.0-36.0 g/dL RDW 12.4 11.0-15.0 % PLATELET COUNT 231 140-400 Thousand/uL MPV 12.1 7.5-12.5 fL ABSOLUTE NEUTROPHILS [phone] cells/uL ABSOLUTE LYMPHOCYTES 2415 850-3900 cells/uL ABSOLUTE MONOCYTES 498 200-950 cells/uL ABSOLUTE EOSINOPHILS 191 15-500 cells/uL ABSOLUTE BASOPHILS 50 0-200 cells/uL NEUTROPHILS 62 LYMPHOCYTES 29.1 MONOCYTES 6.0 EOSINOPHILS 2.3 BASOPHILS 0.6 COMPREHENSIVE METABOLIC PANE L (95417) Reviewed date:02/21/2024 08:29:03 AM Interpretation: Performing Lab:[facility], [facility], [facility] CenterAernZH[address] [place] Eduardo Valverde Notes/Report: NON-FASTING; NON-FASTING; NON-FASTING; NON-FASTING FASTING:YES FASTING: YES GLUCOSE 112 65-99 mg/dL For someone without known diabetes, a glucose value between 100 and 125 mg/dL is consistent with prediabetes and should be confirmed with a follow-up test. Fasting reference interval UREA NITROGEN (BUN) 14 7-25 mg/dL CREATININE 0.95 0.70-1.28 mg/dL EGFR 84 > OR = 60 mL/min/1.73m2 BUN/CREATININE RATIO SEE NOTE: 6-22 (calc) Not Reported: BUN and Creatinine are within reference range. SODIUM 141 135-146 mmol/L POTASSIUM 3.8 3.5-5.3 mmol/L CHLORIDE 107 98-110 mmol/L CARBON DIOXIDE 25 20-32 mmol/L CALCIUM 9.5 8.6-10.3 mg/dL PROTEIN, TOTAL 7.1 6.1-8.1 g/dL ALBUMIN 4.1 3.6-5.1 g/dL GLOBULIN 3.0 1.9-3.7 g/dL (calc) ALBUMIN/GLOBULIN RATIO 1.4 1.0-2.5 (calc) BILIRUBIN, TOTAL 0.5 0.2-1.2 mg/dL ALKALINE PHOSPHATASE 69 35-144 U/L AST 25 10-35 U/L ALT 22 9-46 U/L LIPID PANEL, STANDARD (7600) Reviewed date:02/21/2024 08:29:03 AM Interpretation: Performing Lab:[facility] [employer], [facility] CenterWkcnDL[address] [place] Eduardo Valverde Notes/Report: NON-FASTING; NON-FASTING; NON-FASTING; NON-FASTING FASTING:YES FASTING: YES CHOLESTEROL, TOTAL 132 <200 mg/dL HDL CHOLESTEROL 50 > OR = 40 mg/dL TRIGLYCERIDES 90 <150 mg/dL LDL-CHOLESTEROL 65 better accuracy than the Friedewald equation in the estimation of LDL-C. Tex SS et al. CLARA. 2013;310(14): 3729-2545 (http://education.[employer]/faq/KME676) Reference range: <100 Desirable range <100 mg/dL for primary prevention; <70 mg/dL for patients with CHD or diabetic patients with > or = 2 CHD risk factors. LDL-C is now calculated using the Tex-Childers calculation, which is a validated novel method providing CHOL/HDLC RATIO 2.6 <5.0 (calc) NON HDL CHOLESTEROL 82 <130 mg/dL (calc) For patients with diabetes plus 1 major ASCVD risk factor, treating to a non-HDL-C goal of <100 mg/dL (LDL-C of <70 mg/dL) is considered a therapeutic option. THYROID PANEL WITH TSH (7444 ) Reviewed date:02/21/2024 08:29:03 AM Interpretation: Performing Lab:[facility] [employer] [facility], [facility] CenterWxmtBF[address] Carlos Eduardo Valverde Notes/Report: NON-FASTING; NON-FASTING; NON-FASTING; NON-FASTING FASTING:YES FASTING: YES T3 UPTAKE 30 22-35 % T4 (THYROXINE), TOTAL 9.5 4.9-10.5 mcg/dL FREE T4 INDEX (T7) 2.9 1.4-3.8 TSH 0.68 0.40-4.50 mIU/L M-PHA INR Fingerstick Reviewed date:07/05/2024 04:57:58 PM Interpretation: Performing Lab: Notes/Report: POCINRFS 2.4 0.9-1.1 Results sent to: Tre Biswas MD Pharmacist recommendation for Warfarin: PATIENT INR 2.4 TODAY VIA FINGERSTICK. RECOMMENDED PATIENT CONTINUE WITH WARFARIN 2.5 MG ON MON/WED/FRI; 5 MG ON SUN/TUE/ESTRELLA/SAT. FOR DETAILED INFORMATION-PLEASE REVIEW PROGRESS NOTE IN THE ASSESSMENTS AND ANTICOAGULATION CLINIC SECTION ANTICOAGULATION CLINIC IN PCI/CLINICAL REVIEW INDICATION INR RANGE THERAPY FOR DVT, PE, ATRIAL FIB; 2.0 - 3.0 PROPHYLAXIS FOR VTE THERAPY FOR MECHANICAL HEART 2.5 - 3.5 VALVE; PREVENTION OF SYSTEMIC EMBOLISM SECONDARY TO AMI M-PHA INR Fingerstick Reviewed date:10/11/2024 05:24:37 PM Interpretation: Performing Lab: Notes/Report: POCINRFS 2.6 0.9-1.1 Results sent to: Tre Biswas MD Pharmacist recommendation for Warfarin therapy is: PATIENT INR 2.6 TODAY VIA FINGERSTICK. RECOMMENDED PATIENT CONTINUE WITH WARFARIN 2.5 MG ON MON/WED/FRI; 5 MG ON SUN/TUE/ESTRELLA/SAT. FOR DETAILED INFORMATION-PLEASE REVIEW PROGRESS NOTE IN THE ASSESSMENTS AND ANTICOAGULATION CLINIC SECTION ANTICOAGULATION CLINIC IN PCI/CLINICAL REVIEW INDICATION INR RANGE THERAPY FOR DVT, PE, ATRIAL FIB; 2.0 - 3.0 PROPHYLAXIS FOR VTE THERAPY FOR MECHANICAL HEART 2.5 - 3.5 VALVE; PREVENTION OF SYSTEMIC EMBOLISM SECONDARY TO AMI Medications Medication SIG (Take, Route, Frequency, Duration) Notes Start Date End Date Status Warfarin Sodium 5 MG 1 tab(s) orally 1 tab on MWF and 1/2 tab all other days for 90 days Active Atorvastatin Calcium 40 MG 1 tab(s) orally once a day for 90 days Active Tylenol Extra Strength 500 MG 2 tab(s) orally Q6H prn Active Albuterol Sulfate HFA 108 (90 Base) MCG/ACT 1 puff as needed Inhalation every 4 hrs for 30 days 10/24/2024 Active Omeprazole 40 MG 1 cap(s) orally once a day for 90 days Active Fenofibrate 54 MG 1 tab(s) orally once a day for 90 days Active Breztri Aerosphere 160 MCG-4.8 MCG-9 MCG/INH 2 PUFF(S) INHALED 2 TIMES A DAY for 90 DAYS *Please review and pick correct strength-formulatio n from [email or web address] options. If intended option is not shown, discontinue and re-order from Quick Search* Active Terazosin HCl 5 MG 1 cap(s) orally once a day (at bedtime) for 90 days Active Multivitamin MULTIPLE VITAMINS 1 CAP(S) ORALLY ONCE A DAY *Please review and pick correct strength-formulatio n from [email or web address] options. If intended option is not shown, discontinue and re-order from Quick Search* Active Finasteride 5 MG 1 tab(s) orally once a day for 90 days Active Bisoprolol-hydroCHLOR Othiazide 10/6.25MG 1 TAB(S) ORALLY ONCE A DAY for 90 DAYS *Please review and pick correct strength-formulatio n from [email or web address] options. If intended option is not shown, discontinue and re-order from Quick Search* Active Immunizations Vaccine Route Administration Date Status Comme nts Prevnar PCV-20 (Pneumococcal conjugate 20) IM Intramuscular 11/11/2022 Administered Prevnar PCV-13 (Pneumococcal conjugate 13) IM Intramuscular 03/09/2017 Administered Pneumovax 23 IM Intramuscular 03/06/2016 Administered Influenza (Fluzone)--Medicare only IM Intramuscular 03/09/2017 Administered Fluzone High Dose IM Intramuscular 02/20/2020 Administered Fluzone High Dose IM Intramuscular 03/20/2021 Administered Fluzone High Dose IM Intramuscular 05/12/2023 Administered Fluzone High Dose IM Intramuscular 02/18/2024 Administered Fluvirin (MEDICARE ONLY) IM Intramuscular 03/06/2016 Admin istered Arexvy IM Intramuscular 05/12/2023 Administered Problems Problem Type SNOMED Code ICD Code Onset Dates Problem Status W/U Status Risk Notes Problem 242421243 Paroxysmal atria l fibrillation (I48.0) Active confirmed Problem 704016262505313 Chronic obstruct gennaro pulmonary disease with acute lower respiratory infection (J44.0) Active confirmed Problem 70477881 Palpitations (R00.2) Active confirmed Problem Weakness (92535615) Weakness (R53.1) Active confirmed Problem 15843919 Personal history of nicotine dependence (Z87.891) Active confirmed Problem 55358443 Tobacco use disorder (Z72.0) Active confirmed Problem 572172979 Hyperlipemia, 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 Problem 30272142 Hypertension, essential (I10) Active confirmed Problem 754845196 BMI 25.0-25.9,ad ult (Z68.25) Active confirmed Problem 573538367 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) Active confirmed Problem Orthostatic hypotension (37876804) Orthostasis (I95.1) Active confirmed Problem 080852707 Gastroesophageal reflux disease, esophagitis presence not specified (K21.9) Active confirmed Problem 979210880 BMI 28.0-28.9,ad ult (Z68.28) Active confirmed Problem Ataxia (07435948) Ataxia (R27.0) Active confirm ed Problem Syncope and collapse (956342564) Pre-syncope (R55) Active confirmed Problem 988645467 Pulmonary nodule (R91.1) Active confirmed Problem 97400277 Oropharyngeal dysphagia (R13.12) Active confirmed Problem 64754952 Abdominal aortic aneurysm (AAA) without rupture (I71.4) Active confirmed Vital Signs Heart Rate 96 /min 02/18/2024 Temperature 97.8 degrees Fahrenheit 02/18/2024 Blood pressure diastolic 82 mm Hg 02/18/2024 Height 5 ft 9 in in 02/18/2024 Blood pressure systolic 130 mm Hg 02/18/2024 Weight 189.2 lbs 02/18/2024 BMI 27.94 kg/m2 02/18/2024 Encounters Encounter Location Date Provider Diagnosis [facility] [address] [address] 09/09/2024 Provider Migration Hyperlipemia, idiopathic familial E78.5 ; Hypertension, essential I10 ; Paroxysmal atrial fibrillation I48.0 and COPD with chronic bronchitis J44.9 [facility] [address] [place] [address] 02/18/2024 Tre Besson Immunization(s) administered Z23 ; Hyperlipemia, idiopathic familial E78.5 ; Hypertension, essential I10 ; Paroxysmal atrial fibrillation I48.0 ; Personal history of nicotine dependence Z87.891 and COPD with chronic bronchitis J44.9 [facility] [address] [place] [address] 11/20/2024 Tre Besson [facility] [address] [address] 01/05/2024 Tre Besson [facility] [address] [facility] [address] [facility] [place] [address] 02/09/2024 Tre Besson [facility] [address] [place] [address] 02/16/2024 Tre Besson [facility] [address] [facility] [place] [address] 10/24/2024 Tre Biswas Assessments Encounter Date Diagnosis (ICD Code) Assessment Notes Treatment Notes Treatment Clinical Notes Section Notes 02/18/2024 Hyperlipemia, idiopathic familial (ICD-10 - E78.5) On high-dose statin. No changes in plan. Check labs to monitor medication effectiveness and toxicity. I will review labs personally 02/18/2024 Immunization(s) administered (ICD-10 - Z23) 09/09/2024 Hyperlipemia, idiopathic familial (ICD-10 - E78.5) 09/09/2024 Hypertension, essential (ICD-10 - I10) 02/18/2024 Hypertension, essential (ICD-10 - I10) 02/18/2024 Paroxysmal atrial fibrillation (ICD-10 - I48.0) On appropriate anticoagulation. No changes in plan 09/09/2024 Paroxysmal atrial fibrillation (ICD-10 - I48.0) 02/18/2024 Personal history of nicotine dependence (ICD-10 - Z87.891) Up-to-date with low-dose CT. Continues to smoke. Discussion about cessation for greater than 5 minutes. Understands but is precontemplative 02/18/2024 COPD with chronic bronchitis (ICD-10 - J44.9) 09/09/2024 COPD with chronic bronchitis (ICD-10 - J44.9) Plan Of Treatment Pending Test Test Name Order Date X ray : Chest 09/20/2006 CT Scan : Chest, Without Contrast 2016 Colonoscopy 09/04/2013 EKG : In House 09/20/2006 Echocardiogram 11/17/2013 Physical Therapy 10/11/2012 X ray : Shoulder, Left, w/ and w/o weigh ts 10/05/2012 Ultrasound : Abdominal Aorta 06/19/2016 X ray : Shoulder, Right w/ and w/o weigh ts 10/05/2012 Insurance Providers Payer Name Payer Address Payer Phone Subscriber Number Group Number Insured Name Patient Relationship to Insured Coverage Start Date Coverage End Date [employer] [address] [place] [address] [id number] Tae Wagoner Self - patient is the insured Medications Administered Medication Instructions Date of Administration Dosage Notes Kenalog 08/06/2014 1 Kenalog 05/22/2015 1 mL Medical (General) History Medical History History ICD Code COPD with Chronic Bronchitis hypertension anxiety BPH paroxysmal atrial fibrillation Esophageal reflux colonoscopy in October 2013, normal LHC 06/23 with nonflow limiting disease Negatvie low dose CT scan 06/23 and vianney l again 01/25 and normal 06/30 Normal US of ABD 06/23 Negative Cologuard screen 01/2018 and 02/06 021 Surgical History Surgery Date(Month/Year) nodule removed from voicebox 07/2015
--- OUTSIDE RECORDS SUMMARY | 2024-11-22 11:06 | XMS_ITS | Clinical Summary ---
Author Organization [facility] Address [address] [id number] Care Team Providers Care Customer Support Executive Name Role Phone Pcp, No Primary Care Provider Unavailabl e Allergies No known active allergies Social History Tobacco Use Types Packs/Day Years Used Date Smoking Tobacco: Never Assessed Sex and Gender Information Value Date Recorded Sex Assigned at Not on file Legal Sex Male 6:37 PM EDT Gender Identity Not on file Sexual Orientation Not on file Last Filed Vital Signs Vital Sign Reading Time Taken Comments Blood Pressure 154/78 03/04/2024 1:36 AM EDT Pulse 63 03/04/2024 1:36 AM EDT Temperature 36.6 C (97.9 F) 03/04/2024 1:36 AM EDT Respiratory Rate 18 03/04/2024 1:36 AM EDT Oxygen Saturation 93% 03/04/2024 1:36 AM EDT Inhaled Oxygen Concentration - - Weight 86.2 kg (190 lb) 03/03/2024 10:50 PM EDT Height 180.3 cm (5' 11 ) 03/03/2024 10:50 PM EDT Body Mass Index 26.5 03/03/2024 10:50 PM EDT Plan of Treatment Health Maintenance Due Date Last Done Comments [facility]-Depression Screening 1950 [facility]-Hepatitis C Screening 1950 [facility]-Medicare Annual Wellness (AWV) 1950 [facility]-/Child/Adol SDOH Screenings 1950 [facility]-Obesity Intervention 08/18/1955 [facility]- SDOH Screenings 08/18/1967 [facility]-Adult SDOH Screenings 08/18/1967 CT Colonography 1994 Colonoscopy 1994 FIT-DNA 1994 FIT 1994 FOBT 1994 Sigmoidoscopy 1994 [facility]-Colorectal Cancer Screening 1994 [facility]-DTaP,Tdap,and Td Vaccines (1 - Tdap) 08/12/1996 08/11/1996 [facility]-Zoster Vaccines (1 of 2) 08/18/1999 [id number] Vaccine (4 - season) 2024 06/17/2021, 08/14/2020, 07/17/2020 [facility]-Pneumococcal Vaccine: 50+ Years Completed 11/11/2022, 03/09/2017 [facility]-RSV Vaccine: 60+ Years or Completed 05/12/2023 [facility]-Influenza Vaccine Completed 02/18/2024 , 05/12/2023, 03/20/2021, Additional history exists HPV Vaccines Aged Out No longer eligi ble based on patient's age to complete this topic [facility]-HIB Vaccines Aged Out No longer e ligible based on patient's age to complete this topic [facility]-Hepatitis A Vaccines Aged Out No longer eligible based on patient's age to complete this topic [facility]-IPV Vaccines Aged Out No longer e ligible based on patient's age to complete this topic [facility]-Rotavirus Vaccines Aged Out No lo nger eligible based on patient's age to complete this topic Insurance [facility] MEDICARE Care Teams Customer Support Executive Relationship Specialty Start Date End Date Kevin, [place] [address] PCP - General Family Medicine 03/03/24
[2024-11-22 11:55] LABS: PHA INR Fingerstick 2.7 (0.9-1.1)
== END 2024-11-22 12:30 ==
LOC: ACC 10:56
PROVIDERS: PCP Internal Medicine Adolescent Medicine; Visit Provider Internal Medicine Adolescent Medicine
DX: I48.91 Unspecified atrial fibrillation (principal)
CPT/HCPCS: 85610; 99211; G0463

== ENCOUNTER 2025-01-03 10:52 | Outpatient (CLI) | payer MEDICARE, SELFPAY ==
--- OUTSIDE RECORDS SUMMARY | 2024-09-09 17:30 | XMS_ITS ---
Author Organization [facility] Address [address] [facility] [address] [place] [address] Care Team Providers Care Jewelry Internship Name Role Phone True Tre Primary Care Provider [phone] Migration, Provider Unavailable Unavailable [facility] Conversion Encounter Medications Medication SIG (Take, Route, Frequency, Duration) Notes Start Date End Date Status Tylenol Extra Strength 500 MG 2 tab(s) orally Q6H prn Active Fenofibrate 54 MG 1 tab(s) orally once a day; Duration: 90 days Active Breztri Aerosphere 160 MCG-4.8 MCG-9 MCG/INH 2 PUFF(S) INHALED 2 TIMES A DAY; Duration: 90 DAYS *Please review and pick correct strength-formulatio n from [employer] options. If intended option is not shown, discontinue and re-order from Quick Search* Active Multivitamin MULTIPLE VITAMINS 1 CAP(S) ORALLY ONCE A DAY *Please review and pick correct strength-formulatio n from [employer] options. If intended option is not shown, [...] review and pick correct strength-formulatio n from [employer] options. If intended option is not shown, discontinue and re-order from Quick Search* Active Encounters Encounter Location Date Provider Diagnosis [facility] P[facility] MAL [address] [place] [address] 09/09/2024 Provider Migration Hyperlipemia, idiopathic familial E78.5 [...] *Please review and pick correct strength-formulation from [employer] options. If intended option is not shown, [...] *Please review and pick correct strength-formulation from [employer] options. If intended option is not shown, discontinue and re-order from Quick Search* Progress Notes * Tae WAGONERDOB:1950 (74 yo M)Acc No.[id number]:09/09/2024 Patient: Tae RICK Provider: Moses Dalal :1950 A ge:74 Y S ex:Male Date:09/09/2024 Address:[address] [place] [address], [id number] Pcp:Tre Biswas Subjective: * Chief Complaints: * [...] *Please review and pick correct [facility]. If intended option is not [...] Electronic signature of Prov ider Migration on 01/03/2025 at 10:54 AM EDT Sign off status: Pending * Provider: Moses araujo Migration Date: 0 09/09/2024 Generated for Reina danielle/Simon/Antoniaitting on: 0 01/03/2025 10:54 AM EDT
--- OUTSIDE RECORDS SUMMARY | 2025-01-03 10:54 | XMS_ITS | Clinical Summary ---
Author Organization [facility] Address [address] [id number] Care Team Providers Care Retail Product Demo Specialist Name Role Phone Pcp, No Primary Care [...] 08/11/1996 [facility]-Zoster Vaccines (1 of 2) 08/18/1999 [id number] Vaccine (4 - season) 2024 06/17/2021, 08/14/2020, 07/17/2020 [facility]-Influenza Vaccine (#1) 02/05/202502/17, 05/12/2023, 03/20/2021, Additional history exists [facility]-Pneumococcal Vaccine: 50+ Years Completed 11/11/2022, 03/09/2017 [facility]-RSV Vaccine: 60+ Years or Completed 05/12/2023 HPV Vaccines Aged Out No longer eligi [...] patient's age to complete this topic Insurance [employer] Care Teams Retail Product Demo Specialist Relationship Specialty Start Date End Date Pcp, Arianna [address] [place] [address] PCP - General Family Medicine 03/03/24
--- OUTSIDE RECORDS SUMMARY | 2025-01-03 10:54 | XMS_ITS | Patient Health Record ---
Author Organization [facility] Address [address] [facility] [address] [place] [address] Care Team Providers Care Tool Repairer Bench Name Role Phone Tre Biswas Primary Care Provider [phone] Migration, Provider Unavailable Unavailable Allergies No Known Allergies Results Component Value Reference Range Notes M-PHA INR Fingerstick Reviewed date:07/05/2024 04:57:58 PM [...] SECONDARY TO AMI M-PHA INR Fingerstick Reviewed date:08/16/2024 02:16:15 PM [...] SECONDARY TO AMI M-PHA INR Fingerstick Reviewed date:11/22/2024 02:02:57 PM Interpretation: Performing Lab: Notes/Report: POCINRFS 2.7 0.9-1.1 Results sent to: Tre Biswas MD Pharmacist recommendation for Warfarin therapy is: PATIENT INR 2.7 TODAY VIA FINGERSTICK. RECOMMENDED PATIENT CONTINUE WITH [...] PREVENTION OF SYSTEMIC EMBOLISM SECONDARY TO AMI THYROID PANEL WITH TSH (7444 ) Reviewed date:02/21/2024 08:29:03 AM Interpretation: Performing Lab:CB, [facility] [address], [place]foz[place] Carlos Eduardo Valverde Notes/Report: NON-FASTING; NON-FASTING; NON-FASTING; NON-FASTING FASTING:YES FASTING: YES T3 UPTAKE 30 22-35 % T4 (THYROXINE), TOTAL 9.5 4.9-10.5 mcg/dL FREE T4 INDEX (T7) 2.9 1.4-3.8 TSH 0.68 0.40-4.50 mIU/L LIPID PANEL, STANDARD (7600) Reviewed date:02/21/2024 08:29:03 AM Interpretation: Performing Lab:[facility] [address] [facility], [employer] Carlos Eduardo Valverde Notes/Report: NON-FASTING; NON-FASTING; NON-FASTING; NON-FASTING FASTING:YES FASTING: YES CHOLESTEROL, TOTAL 132 <200 mg/dL HDL CHOLESTEROL 50 > OR = 40 mg/dL TRIGLYCERIDES 90 <150 mg/dL LDL-CHOLESTEROL 65 better accuracy than the Friedewald equation in the estimation of LDL-C. Tex SS et al. CLARA. 2013;310(96): 8578-4428 (http://education.TalentEarth.Trigence/faq/QEX384) Reference range: <100 Desirable range <100 mg/dL [...] <70 mg/dL) is considered a therapeutic option. COMPREHENSIVE METABOLIC PANE (28313) Reviewed date:02/21/2024 08:29:03 AM Interpretation: Performing Lab:[facility] [facility], [place] TmnwMR[address] Carlos Eduardo Valverde Notes/Report: NON-FASTING; NON-FASTING; NON-FASTING; [...] 25 10-35 U/L ALT 22 9-46 U/L CBC (INCLUDES DIFF/PLT) (639 9) Reviewed date:02/21/2024 08:29:03 AM Interpretation: Performing Lab:CB, [facility] Carlos Eduardo Valverde Notes/Report: NON-FASTING; NON-FASTING; NON-FASTING; NON-FASTING FASTING:YES FASTING: YES WHITE BLOOD CELL COUNT 8.3 3.8-10.8 Thousand/ uL RED BLOOD CELL COUNT 4.58 4.20-5.80 Million/uL HEMOGLOBIN 14.3 13.2-17.1 g/dL HEMATOCRIT 43.0 38.5-50.0 % MCV 93.9 80.0-100.0 fL MCH 31.2 27.0-33.0 pg MCHC 33.3 32.0-36.0 g/dL RDW 12.4 11.0-15.0 % PLATELET COUNT 231 140-400 Thousand/uL MPV 12.1 7.5-12.5 fL ABSOLUTE NEUTROPHILS 5146 2533-6555 cells/uL ABSOLUTE LYMPHOCYTES 2415 850-3900 cells/uL ABSOLUTE MONOCYTES 498 200-950 cells/uL ABSOLUTE EOSINOPHILS 191 15-500 cells/uL ABSOLUTE BASOPHILS 50 0-200 cells/uL NEUTROPHILS 62 LYMPHOCYTES 29.1 MONOCYTES 6.0 EOSINOPHILS 2.3 BASOPHILS 0.6 Medications Medication SIG (Take, Route, Frequency, Duration) Notes Start Date End Date Status Warfarin Sodium 5 MG 1 tab(s) orally 1 tab on MWF and 1/2 tab all other days; Duration: 90 days Active Atorvastatin Calcium 40 MG 1 tab(s) orally once a day; Duration: 90 days Active Tylenol Extra Strength 500 MG 2 tab(s) orally Q6H prn Active Albuterol Sulfate HFA 108 (90 Base) MCG/ACT 1 puff as needed Inhalation every 4 hrs; Duration: 30 days 10/24/2024 Active Omeprazole 40 MG 1 cap(s) orally once a day; Duration: 90 days Active Fenofibrate 54 MG 1 tab(s) orally once a day; Duration: 90 days Active Breztri Aerosphere 160 MCG-4.8 MCG-9 MCG/INH 2 PUFF(S) INHALED 2 TIMES A DAY; Duration: 90 DAYS *Please review and pick correct strength-formulatio n from [employer]erva options. If intended option is not shown, discontinue and re-order from Quick Search* Active Terazosin HCl 5 MG 1 cap(s) orally once a day (at bedtime); Duration: 90 days Active Multivitamin MULTIPLE VITAMINS 1 CAP(S) ORALLY ONCE A DAY *Please review and pick correct strength-formulatio n from [employer] options. If intended option is not shown, discontinue and re-order from Quick Search* Active Finasteride 5 MG 1 tab(s) orally once a day; Duration: 90 days Active Bisoprolol-hydroCHLOR Othiazide 10/6.25MG 1 TAB(S) ORALLY ONCE A DAY; Duration: 90 DAYS *Please review and pick correct strength-formulatio n from [employer] options. If intended option is not shown, [...] Problem Status W/U Status Risk Notes Problem Paroxysmal atrial fibrillation (394068531) Paroxysmal atrial fibrillation (I48.0) Active confirmed Problem Chronic obstructive pulmonary disease with acute lower respiratory infection (326435882) Chronic obstructive pulmonary disease with acute lower respiratory infection (J44.0) Active confirmed Problem Palpitations (79114082) Palpitations (R00.2) Active confirmed Problem Weakness (75513162) Weakness (R53.1) Active con firmed Problem Nicotine dependence (03863585) Personal history of nicotine dependence (Z87.891) Active confirmed Problem Tobacco use (957784403) Tobacco use disorder (Z72.0) Active confirmed Problem Hyperlipidemia (10682567) Hyperlipemia, 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 Problem Essential hypertension (26294943) Hypertension, essential (I10) Active confirmed Problem Body mass index 25-29 - overweight (206086149) BMI 25.0-25.9,adult (Z68.25) Active confirmed Problem Chronic obstructive pulmonary disease (97478745) 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 Problem Orthostatic hypotension (17042369) Orthostasis (I95.1) Active confirmed Problem Gastroesophageal reflux disease (610684102) Gastroesophageal reflux disease, esophagitis presence not specified (K21.9) Active confirmed Problem Body mass index 25-29 - overweight (683596125) BMI 28.0-28.9,adult (Z68.28) Active confirmed Problem Ataxia (53559997) Ataxia (R27.0) Active confirm ed Problem Syncope and collapse (180523629) Pre-syncope (R55) Active confirmed Problem Pulmonary nodule (239339402) Pulmonary nodule (R91.1) Active confirmed Problem Oropharyngeal dysphagia (48115085) Oropharyngeal dysphagia (R13.12) Active confirmed Problem Abdominal aortic aneurysm without rupture (disorder) (19334671) Abdominal aortic aneurysm (AAA) without rupture (I71.4) Active confirmed Vital Signs Heart Rate 96 /min 02/18/2024 Temperature 97.8 degrees Fahrenheit 02/18/2024 Blood pressure diastolic 82 mm Hg 02/18/2024 Height 5 ft 9 in in 02/18/2024 Blood pressure systolic 130 mm Hg 02/18/2024 Weight 189.2 lbs 02/18/2024 BMI 27.94 kg/m2 02/18/2024 Encounters Encounter Location Date Provider Diagnosis [facility] [address] [place], [place] [address] 09/09/2024 Provider Migration Hyperlipemia, idiopathic familial E78.5 ; Hypertension, essential I10 ; Paroxysmal atrial fibrillation I48.0 and COPD with chronic bronchitis J44.9 [facility] [address] [facility] [address] [place], [place] [address] 02/18/2024 Tre Besson Immunization(s) administered Z23 ; Hyperlipemia, idiopathic familial E78.5 ; Hypertension, essential I10 ; Paroxysmal atrial fibrillation I48.0 ; Personal history of nicotine dependence Z87.891 and COPD with chronic bronchitis J44.9 [facility] [address] [address] 01/05/2024 Tre Besson [facility] [address] [address] 02/09/2024 Tre Besson [facility] [address] [place], [place] [address] 02/16/2024 Tre Besson [facility] [address] [place] [address] 10/24/2024 Tre Besson [facility] [address] [place], [place] [address] 11/20/2024 Tre Besson Assessments Encounter Date Diagnosis (ICD Code) Assessment [...] End Date [employer] [id number] [place] [address] [id number] Tae Wagoner Self - patient is the [...]
[2025-01-03 11:24] LABS: PHA INR Fingerstick 2.7 (0.9-1.1)
== END 2025-01-03 11:26 ==
LOC: ACC 10:52
PROVIDERS: PCP Internal Medicine Adolescent Medicine; Visit Provider Internal Medicine Adolescent Medicine
DX: I48.91 Unspecified atrial fibrillation (principal)
CPT/HCPCS: 85610; 99211; G0463

== ENCOUNTER 2025-02-06 17:17 | Emergency (ER) | payer MEDICARE, SELFPAY ==
[2025-02-06 17:18] VITALS: BP 153/97; PULSE 78; RESP 20; TEMP 36.7; O2SAT 93; BMI 26.5
--- NOTE | 2025-02-06 17:36 | XR_ITS ---
PROCEDURE INFORMATION: Exam: XR Chest Exam date and time: 02/06/2025 5:54 PM Age: 74 years old Clinical indication: Other: Exertional SOA, copd, room air 89% on arrival TECHNIQUE: Imaging protocol: Radiologic exam of the chest. Views: 2 views. COMPARISON: CT LUNG SCREENING 06/18/2023 12:47 PM FINDINGS: Lungs: There are moderate centrilobular emphysematous changes of the lungs with an apical gradient. Pleuroparenchymal scarring of the lung bases with subsegmental atelectasis is present without consolidations or pleural effusions that project above the diaphragm. Pleural spaces: Unremarkable. No pleural effusion. No pneumothorax. Heart/Mediastinum: Unremarkable. No cardiomegaly. Bones/joints: Unremarkable. IMPRESSION: Pleuroparenchymal scarring of the lung bases with subsegmental atelectasis is present without consolidations or pleural effusions.
[2025-02-06 17:40] LABS: Influenza A, PCR Not Detected (NotDetected); Influenza B, PCR Not Detected (NotDetected)
--- OUTSIDE RECORDS SUMMARY | 2025-02-06 17:44 | XMS_ITS | Clinical Summary ---
Author Organization [facility] Address [address] [id number] Care Team Providers Care Italian Lecturer Name Role Phone Pcp, No Primary Care [...] 08/11/1996 UKY-Zoster Vaccines (1 of 2) 08/18/1999 [id number] Vaccine (4 - season) 2024 06/17/2021, 08/14/2020, [...] this topic Insurance [employer] Care Teams Italian Lecturer Relationship Specialty Start Date End Date Pcp, Arianna [address] [place] [address] PCP - General Family Medicine 03/03/24
--- NOTE | 2025-02-06 17:51 | HMH.EDGENADL ---
Discharge Plan Disposition Patient Disposition: Home, Self-Care Prescriptions Prescriptions: New azithromycin 250 mg tablet 250 mg PO DAILY 4 Days Qty: 4 0RF Rx Instructions: start on day 2 of therapy No Action acetaminophen 500 mg capsule 500 mg PO Q6H PRN (Reason: PAIN) aspirin [Adult Low Dose Aspirin] 81 mg tablet,delayed release (DR/EC) 81 mg PO ONCE bisoprolol-hydrochlorothiazide 10-6.25 mg tablet 1 tab PO ONCE finasteride 5 mg tablet 5 mg PO ONCE omeprazole 40 mg capsule,delayed release(DR/EC) 40 mg PO DAILY terazosin 5 mg capsule 5 mg PO QHS atorvastatin 40 mg tablet 40 mg PO ONCE warfarin 2.5 mg tablet 2.5 mg PO DAILY Patient Comments: Reji Johnson, Obdulia Hernandez Aerosphere 160-9-4.8 mcg/actuation HFA aerosol inhaler 2 inh INHALATION BID methylprednisolone [Medrol (Efrain)] 4 mg tablets,dose pack See Rx Instructions PO PER PKG DIR Qty: 21 0RF Rx Instructions: PO PER PKG DIR warfarin 5 mg tablet 5 mg PO DAILY Qty: 30 5RF Rx Instructions: take as directed azithromycin [Zithromax Z-Efrain] 250 mg tablet See Rx Instructions PO .COMPLEX Qty: 6 0RF Rx Instructions: For 250 mg dose pack: take 500 mg today (day 1), then 250 mg for 4 days (days 2-5) PO losartan 50 mg tablet See Rx Instructions .ROUTE .COMPLEX Qty: 30 0RF Dose Instruction: TAKE 1 TABLET EVERY DAY Rx Instructions: TAKE 1 TABLET EVERY DAY Referrals Follow up/Referrals: Tre Biswas MD [Primary Care Provider, Internal Medicine] - See instructions Activity Restrictions/Add. Instructions Additional Instructions/Restrictions: Your swab came back positive for COVID-19. You can treat this symptomatically at home with Tylenol, ibuprofen and wwlw-koo-tgpnuau decongestants. I am also prescribing a course of antibiotics for possible COPD exacerbation given your cough. Take this as prescribed. I any new or worsening symptoms, or if you become concerned for your health for any reason, return to the emergency department for evaluation. Clinical Impressions Clinical Impression: COVID-19, COPD exacerbation Print Language Print Language: Czech Discharge ED Provider: Tapan Ramirez Adult HPI General Chief complaint: Upper Respiratory Infection Stated complaint: SOA,Cough,fever,chills Time Seen by Provider: 02/06/25 17:50 Mode of Arrival: Family Vehicle Source of Information: Patient, Spouse and Medical Record Description of Symptoms (Recalled from ER Triage Doc. by RN): Pt c/o subjective fever, body aches, chills, ylw productive cough, and SOA with exertion. He has a hx of afib ( on Warfarin), COPD, HTN, and HLD. He has taken tylenol & ibuprofen today @ 1000. He is afebrile at this time. He has taken the Albuterol rescue in haler today and it helps but only for a short time. Inital SpO2 was 89% but with rest improved to 94%. He does not see a janitor caretaker. History of Present Illness HPI narrative: Tae Wagoner is a 74y male with past medical history of A-fib on warfarin, COPD, hypertension, hyperlipidemia who presents to the emergency department for complaints of a week of nasal congestion and cough. Patient states that his symptoms started last week with significant amount of nasal congestion and mucus production. He states that he feels like it is moved down into his chest with a cough that he feels like should be productive, however he is not able to get anything up with it. He does report some shortness of breath with exertion stating that if he walks across the room he will be short of breath. He denies any chest pain, abdominal pain, nausea, vomiting or diarrhea. He denies any recent fevers. Patient was noted to be mildly hypoxic on arrival and has improved to the low 90s at rest. Related Data Home Medications ?Medication ?Instructions ?Recorded ?Confirmed acetaminophen 500 mg capsule 500 mg PO Q6H PRN PAIN 07/12/17 12/11/20 aspirin 81 mg tablet,delayed 81 mg PO ONCE HEART 07/12/17 06/25/21 release (Adult Low Dose Aspirin) bisoprolol 10 1 tab PO ONCE BLOOD PRESSURE 07/12/17 06/25/21 mg-hydrochlorothiazide 6.25 mg tablet finasteride 5 mg tablet 5 mg PO ONCE PROSTATE 07/12/17 06/25/21 omeprazole 40 mg capsule,delayed 40 mg PO DAILY STOMACH 07/12/17 06/25/21 release terazosin 5 mg capsule 5 mg PO QHS PROSTATE 02/05/18 01/19/22 atorvastatin 40 mg tablet 40 mg PO ONCE Cholesterol 07/13/17 06/25/21 warfarin 2.5 mg tablet 2.5 mg PO DAILY Blood thinner 07/13/17 06/25/21 budesonide 160 mcg-glycopyr 9 2 inh inhalation BID 06/25/21 06/25/21 mcg-formot 4.8 mcg/actuation HFA inhaler (Breztri Aerosphere) Previous Rx's ?Medication ?Instructions ?Recorded warfarin 5 mg tablet 5 mg PO DAILY Blood thinner #30 12/23/18 tabs methylprednisolone 4 mg tablets in See Rx Instructions PO PER PKG DIR 06/25/21 a dose pack (Medrol (Efrain)) #21 tabs azithromycin 250 mg tablet See Rx Instructions PO .COMPLEX #6 09/01/21 (Zithromax Z-Efrain) tabs losartan 50 mg tablet See Rx Instructions .Route 07/27/23 .COMPLEX #30 tabs azithromycin 250 mg tablet 250 mg PO DAILY 4 days #4 tabs 02/06/25 Allergies Allergy/AdvReac Type Severity Reaction Status Date / Time No Known Allergies Allergy Verified 06/25/21 11:06 [facility] Disclaimer: The information contained in this section may have been updated after the patient was seen, as this information can be updated by other users. Social History Smoking Status: Former smoker tobacco type: cigarettes second hand exposure: Yes alcohol intake: never substance use type: denies use current occupational status: employed and disabled Travel in the last 8 weeks?: None caffeine: Yes Have you lived/traveled outside US in past 30 days?: No Contact w/someone who lives/traveled outside US past 30 days?: No Exposure to someone with infectious disease in past 14 days?: No Do you have a fever (greater than 100.4 F or 38 C)?: No Have you tested positive for COVID-19?: No Exposed to someone with COVID-19 in past 14 days?: No Do you have a sore throat?: No Do you have a cough?: No Do you have any weakness?: No Do you have any diarrhea?: No Are you experiencing any unusual bleeding?: No Do you have any muscle aches/pain?: No Do you have any abdominal pain?: No Are you experiencing loss of taste or smell?: No Other Medical History Have you received the Flu Vaccine for this season: No Have you received the Pneumonia Vaccine: Yes ROS Obtained: Yes Systems reviewed as appropriate & no additional complaints except as documented Physical Exam General General appearance: alert and in no apparent distress Head Head exam: atraumatic Eye Eye exam: Present normal appearance ENT ENT exam: Present normal external ear exam Neck Neck exam: Present full ROM Chest Chest inspection: Present symmetric chest wall rise Respiratory Respiratory exam: Present normal lung sounds bilaterally and wheezes (mild end expiratory wheezing bilaterally); Absent respiratory distress Cardiovascular Cardiovascular exam: Present regular rate and normal rhythm Abdominal Exam Abdominal exam: Present soft; Absent tenderness or guarding exam: Present deferred Extremities Exam Extremities exam: Present normal inspection Back Exam Back exam: Present normal inspection Neurological Exam Neurological exam: Present alert and oriented X3 Psychiatric Psychiatric exam: Present normal affect Skin Skin exam: Present warm and dry Medical Decision Making Medical Records Screening: Per USPSTF and CDC recommendations, given the prevalence of disease in our region, it is our hospital?s policy to screen for HIV and viral Hepatitis for all patients aged 18 and over and those with ongoing risk factors. Hilario Inquiry Pt receiving controlled substance: No Vital Signs: 02/06/25 17:18 02/06/25 18:01 Temperature 98.0 F Temperature Source Oral Pulse Rate 70 Pulse Rate [Right] 78 Respiratory Rate 20 Blood Pressure 152/122 H Blood Pressure [Left Arm] 153/97 H Blood Pressure Mean [Left Arm] 115 Blood Pressure Source [Left Arm] Automatic Cuff 02 Sat by Pulse Oximetry 93 L 91 L Oxygen Delivery Method Room Air Lab Data Lab Results 02/06/25 17:29: SARS-CoV-2 (PCR) Detected A, Influenza A Untype (PCR) Not detected, Influenza Type B (PCR) Not detected 02/06/25 18:29: WBC 10.2, RBC 4.58 L, Hgb 13.8 L, Hct 41.3 L, MCV 90.2, MCH 30.1, MCHC 33.4, RDW 12.8, Plt Count 249, MPV 11.6 H, Neut % (Auto) 57.5, Lymph % (Auto) 27.4, Allen % (Auto) 6.9, Eos % (Auto) 7.3, Baso % (Auto) 0.7, Neut # (Auto) 5.9, Lymph # (Auto) 2.8, Allen # (Auto) 0.7, Eos # (Auto) 0.8 H, Baso # (Auto) 0.1, Sodium 140, Potassium 4.2, Chloride 102, Carbon Dioxide 28, Anion Gap 14.2, BUN 19, Creatinine 0.90, Estimated Creat Clear 76, Estimated GFR 82, Est GFR ( Amer) 100, Glucose 99, Calcium 9.1, Total Bilirubin 0.4, AST 40, ALT 23, Alkaline Phosphatase 84, Troponin I < 0.01, Total Protein 7.9, Albumin 4.4, Globulin 3.5 H, Albumin/Globulin Ratio 1.3 02/06/25 18:29 02/06/25 18:29 Orders (Tests/Meds): ED MEDICATIONS Generic Name Dose Route Start Last Admin Trade Name Freq PRN Reason Stop Dose Admin Azithromycin 500 mg 02/06/25 19:38 Azithromycin 250mg Tablet PO 02/06/25 19:39 ONCE ONE ORDERS Category Date Time Status CXR 2 view (NOT portable) [XR chest 2V] Stat Exams 02/06/25 17:36 Completed CBC w/Auto Diff [Complete Blood Count Auto Diff] Stat Lab 02/06/25 18:29 Completed CMP [Comprehensive Metabolic Panel] Stat Lab 02/06/25 18:29 Completed Rapid PCR Covid and Flu A/B Stat Lab 02/06/25 17:29 Completed Trop I [Troponin I] Stat Lab 02/06/25 18:29 Completed Troponin I Q3H Lab 02/06/25 21:30 Ordered Troponin I Q3H Lab 02/07/25 00:30 Ordered Medical Decision Narrative: Tae Wagoner is a 74y male with past medical history of A-fib on warfarin, COPD, hypertension, hyperlipidemia who presents to the emergency department for complaints of a week of nasal congestion and cough. Patient states that his symptoms started last week with significant amount of nasal congestion and mucus production. He states that he feels like it is moved down into his chest with a cough that he feels like should be productive, however he is not able to get anything up with it. He does report some shortness of breath with exertion stating that if he walks across the room he will be short of breath. He denies any chest pain, abdominal pain, nausea, vomiting or diarrhea. He denies any recent fevers. Patient was noted to be mildly hypoxic on arrival and has improved to the low 90s at rest. On arrival, patient is mildly hypertensive with blood pressure 153/97, heart rate within normal limits, oxygen saturation 93% on room air. Physical exam, stated above, revealed an overall well-appearing male in no respiratory distress. He speaking in full sentences. Cardiopulmonary exam reveals some mild end expiratory wheezing bilaterally. No murmurs or rubs. Physical exam is otherwise grossly unremarkable. Differential diagnosis includes, but is not limited to: Viral upper respiratory faction, viral respiratory illness, pneumonia, COPD exacerbation, sinus infection, bronchitis, ACS, among others. Patient is PERC negative. The most morbid conditions were considered and workup was based on these. Workup in the emergency department included two-view chest x-ray and rapid COVID and flu test on arrival per nursing. Upon my evaluation, I obtain basic labs, CBC, CMP, troponin and EKG. Chest x-ray interpreted by me personally. Hyperexpanded lungs without focal consolidation. No widened mediastinum. See final radiology report for details. EKG without evidence of ischemia. See interpretation above Laboratory workup is unremarkable and nonactionable with negative troponin. Patient's respiratory swab came back positive for COVID-19, which likely explains the patient's upper respiratory symptoms. Will discharge patient with a 4-day course of azithromycin after 500 mg dose here given the pharmacies are closed. Patient given return precautions. All questions were answered. He demonstrated understanding and was in agreement this plan. ED course here but is not in any respiratory distress and given his history of COPD, is felt that this is an appropriate range for him. He was then discharged from the emergency department in stable condition. Patient was mildly hypoxic into the low 90s during his Critical Care Critical Care Time Critical Care Time: No
[2025-02-06 18:01] VITALS: BP 152/122; PULSE 70; O2SAT 91
--- NOTE | 2025-02-06 18:35 | ECG_ITS ---
APPROVED REPORT Exam: Resting ECG HR:63 bpm ECG Measurements Heart Rate 63 AXES NC 201 P 83 QRSd 84 QRS 83 QT 402 T 83 QTc 410 Conclusion SINUS RHYTHM NORMAL ECG UNCONFIRMED REPORT Normal sinus rhythm. No ST elevation or depression. Electronically signed by : ERICA PLUNKETT, 02/07/2025 00:05:25
[2025-02-06 18:40] LABS: Hematocrit 41.3 % (42.0-52.0); Hemoglobin 13.8 g/dL (14.1-18.0); Immature Granulocytes % 0.2 %; Mean Corpuscular HGB Conc 33.4 g/dL (31.8-35.4); Mean Corpuscular Hemoglobin 30.1 pg (27.0-31.2); Mean Corpuscular Volume 90.2 fl (80-94); Nucleated Red Blood Cells % 0 %; Platelet Count 249 K/mm3 (142-424); Red Blood Count 4.58 M/mm3 (4.60-6.20); Red Cell Distribution Width-SD 42.2 fL; White Blood Count 10.2 K/mm3 (4.8-10.8)
[2025-02-06 18:48] LABS: Alanine Aminotransferase 23 U/L (12-78); Albumin Level 4.4 g/dl (3.5-5.0); Albumin/Globulin Ratio 1.3 (1.1-1.8); Alkaline Phosphatase 84 U/L (38-126); Anion Gap 14.2 mEq/L (5-15); Aspartate Amino Transferase 40 U/L (17-59); Bilirubin,Total 0.4 mg/dl (0.2-1.3); Blood Urea Nitrogen 19 mg/dl (9-20); Calcium 9.1 mg/dl (8.4-10.2); Carbon Dioxide 28 mmol/L (22.0-30.0); Chloride 102 mmol/L (98-107); Creatinine Clearance Estimated 76 mL/min (50-200); Creatinine,Serum 0.90 mg/dl (0.66-1.25); Estimated Glomerular Filt Rate 82 ml/min (>60); GFR (African American) 100 ML/MIN (>60); Globulin 3.5 g/dL (1.3-3.2); Glucose 99 mg/dl (74-100); Potassium 4.2 mmoL/L (3.5-5.1); Sodium 140 mmol/L (136-145); Total Protein,Serum 7.9 g/dl (6.3-8.2)
[2025-02-06 19:01] LABS: Coronavirus 19, PCR Detected (NotDetected)
[2025-02-06 19:11] LABS: Troponin I < 0.01 ng/ml (0.00-0.034)
[2025-02-06 19:49] VITALS: BP 141/68; PULSE 58; RESP 20; TEMP 36.9; O2SAT 91
[2025-02-06] MEDS: AZITHROMYCIN 250MG TABLET 500 MG PO (19:54)
== END 2025-02-06 19:59 | disposition home or self-care (01) ==
PROVIDERS: Emergency Provider Student in an Organized Health Care Education/Training Program; PCP Internal Medicine Adolescent Medicine
DX: U07.1 COVID-19 (principal); J44.1 Chronic obstructive pulmonary disease with (acute) exacerbation; I10 Essential (primary) hypertension
CPT/HCPCS: 71046; 80053; 84484; 85025; 87636; 93005; 99283

== ENCOUNTER 2025-02-14 10:58 | Outpatient (CLI) | payer MEDICARE, SELFPAY ==
--- OUTSIDE RECORDS SUMMARY | 2024-09-09 17:30 | XMS_ITS ---
Author Organization [facility] Address [address] [facility] [address] [place] [address] Care Team Providers Care Senior Clinical Data Manager Name Role Phone True Tre Primary Care Provider Migration, Provider Unavailable Unavailable REASON FOR VISIT [facility] Conversion Encounter Medications Medication SIG (Take, Route, Frequency, Duration) Notes Start Date End Date Status Tylenol Extra Strength 500 MG 2 tab(s) orally Q6H prn Active Fenofibrate 54 MG 1 tab(s) orally once a day; Duration: 90 days Active Breztri Aerosphere 160 MCG-4.8 MCG-9 MCG/INH 2 PUFF(S) INHALED 2 TIMES A DAY; Duration: 90 DAYS *Please review and pick correct strength-formulatio n from [employer] options. If intended option is not shown, discontinue and re-order from Quick Search* Active Multivitamin MULTIPLE VITAMINS 1 CAP(S) ORALLY ONCE A DAY *Please review and pick correct strength-formulatio n from [employer] options. If intended option is not shown, [...] review and pick correct strength-formulatio n from [employer] options. If intended option is not shown, discontinue and re-order from Quick Search* Active Encounters Encounter Location Date Provider Diagnosis [facility] MAL [address] [place] [address] 09/09/2024 Provider Migration Hyperlipemia, idiopathic familial E78.5 [...] *Please review and pick correct strength-formulation from [employer] options. If intended option is not shown, [...] *Please review and pick correct strength-formulation from [employer] options. If intended option is not shown, discontinue and re-order from Quick Search* Progress Notes * Tae WAGONERDOB:1950 (74 yo M)Acc No.[id number]:09/09/2024 Patient: Tae RICK Provider: Moses Dalal :1950 A ge:74 Y S ex:Male Date:09/09/2024 Address:[address] [place] [address], [id number] Pcp:Tre Biswas Subjective: * Chief Complaints: * 1 . [facility] To [facility] Conversion Encounter. * Medical History: * Medications: [...] *Please review and pick [facility] If intended option is not [...] 5. * * Electronic signature of Prov ider Migration on 02/14/2025 at 11:00 AM EDT Sign off status: Pending * Provider: Moses araujo Migration Date: 0 09/09/2024 Generated for Reina danielle/Simon/Antoniaitting on: 0 02/14/2025 11:00 AM EDT
--- OUTSIDE RECORDS SUMMARY | 2025-02-14 11:01 | XMS_ITS | Clinical Summary ---
Author Organization [facility] Address [address] [id number] Care Team Providers Care Spring Bender Name Role Phone Pcp, No Primary Care [...] 08/11/1996 UKY-Zoster Vaccines (1 of 2) 08/18/1999 [id number] Vaccine (4 - season) 2025 06/17/2021, 08/14/2020, 07/17/2020 UKY-Influenza Vaccine (#1) 02/05/202502/17, [...] this topic Insurance [employer] Care Teams Spring Bender Relationship Specialty Start Date End Date Pcp, Arianna [address] [place] [address] PCP - General Family Medicine 03/03/24
--- OUTSIDE RECORDS SUMMARY | 2025-02-14 11:01 | XMS_ITS | Patient Health Record ---
Author Organization [facility] Address [address] [facility] [address] [place] [address] Care Team Providers Care Meat Cutter Apprentice Name Role Phone Tre Biswas Primary Care Provider [phone] Migration, Provider Unavailable Unavailable Allergies No Known Allergies Results Component Value Reference Range Notes M-PHA INR Fingerstick Reviewed date:01/03/2025 02:00:50 PM Interpretation: Performing Lab: Notes/Report: POCINRFS 2.7 0.9-1.1 Results sent to: Tre Biswas MD Pharmacist recommendation for Warfarin therapy is: INR TODAY VIA FINGERSTICK IS 2.7. RECOMMEND PATIENT CONTINUE WEEKLY WARFARIN DOSE OF 2.5MG MO/WE/FR AND 5MG ALL OTHER DAYS. PATIENT WILL F/U IN 6 WEEKS. FOR DETAILED INFORMATION-PLEASE REVIEW PROGRESS NOTE IN [...] 9) Reviewed date:02/21/2024 08:29:03 AM Interpretation: Performing Lab:HELEN [facility]-[employer] [employer], Sure ChillHprvJX[address] Carlos Eduardo Valverde Notes/Report: FASTING: YES FASTING:YES NON-FASTING; NON-FASTING; NON-FASTING; NON-FASTING WHITE BLOOD CELL COUNT 8.3 3.8-10.8 Thousand/ uL RED BLOOD CELL COUNT 4.58 4.20-5.80 Million/uL HEMOGLOBIN 14.3 13.2-17.1 g/dL HEMATOCRIT 43.0 38.5-50.0 % MCV 93.9 80.0-100.0 fL MCH 31.2 27.0-33.0 pg MCHC 33.3 32.0-36.0 g/dL RDW 12.4 11.0-15.0 % PLATELET COUNT 231 140-400 Thousand/uL MPV 12.1 7.5-12.5 fL ABSOLUTE NEUTROPHILS 5146 0600-2707 cells/uL ABSOLUTE LYMPHOCYTES 2415 850-3900 cells/uL ABSOLUTE MONOCYTES 498 200-950 cells/uL ABSOLUTE EOSINOPHILS 191 15-500 cells/uL ABSOLUTE BASOPHILS 50 0-200 cells/uL NEUTROPHILS 62 LYMPHOCYTES 29.1 MONOCYTES 6.0 EOSINOPHILS 2.3 BASOPHILS 0.6 COMPREHENSIVE METABOLIC PANE L (91829) Reviewed date:02/21/2024 08:29:03 AM Interpretation: Performing Lab:HELEN [facility]-[employer] [id number] [employer], Sure ChillYsnzCB[address] Carlos Eduardo Valverde Notes/Report: FASTING:YES FASTING: YES NON-FASTING; NON-FASTING; NON-FASTING; NON-FASTING GLUCOSE 112 65-99 mg/dL For someone without [...] (7600) Reviewed date:02/21/2024 08:29:03 AM Interpretation: Performing Lab:HELEN, [facility], [facility] HospitalUengRU[address] Carlos Eduardo Valverde Notes/Report: FASTING: YES FASTING:YES NON-FASTING; NON-FASTING; NON-FASTING; NON-FASTING CHOLESTEROL, TOTAL 132 <200 mg/dL HDL CHOLESTEROL 50 > OR = 40 mg/dL TRIGLYCERIDES 90 <150 mg/dL LDL-CHOLESTEROL 65 better accuracy than the Friedewald equation in the estimation of LDL-C. Tex SS et al. CLARA. 2013;310(19): 1563-0605 (http://education.IntelliChem.com/faq/LUL387) Reference range: <100 Desirable range <100 mg/dL [...] Lab:CB, [facility], Jeremiah BhaktaMnnmUO[address] Carlos Eduardomadonna Valverde Notes/Report: NON-FASTING; NON-FASTING; NON-FASTING; NON-FASTING FASTING:YES FASTING: YES T3 UPTAKE 30 22-35 % T4 (THYROXINE), TOTAL 9.5 4.9-10.5 mcg/dL FREE T4 INDEX (T7) 2.9 1.4-3.8 TSH 0.68 0.40-4.50 mIU/L M-PHA INR Fingerstick Reviewed date:08/16/2024 02:16:15 PM [...] SECONDARY TO AMI M-PHA INR Fingerstick Reviewed date:07/05/2024 04:57:58 PM [...] 4 hrs; Duration: 30 days 10/24/2024 Active Fenofibrate 54 MG 1 tab(s) orally once a day; Duration: 90 days Active Breztri Aerosphere 160 MCG-4.8 MCG-9 MCG/INH 2 PUFF(S) INHALED 2 TIMES A DAY; Duration: 90 DAYS *Please review and pick correct strength-formulatio n from [employer] options. If intended option is not shown, discontinue and re-order from Quick Search* Active Terazosin HCl 5 MG 1 cap(s) orally once a day (at bedtime); Duration: 90 days Active Omeprazole 40 MG 1 cap(s) orally once a day; Duration: 90 days Active Multivitamin MULTIPLE VITAMINS 1 CAP(S) ORALLY ONCE A DAY *Please review and pick correct strength-formulatio n from [employer] options. If intended option is not shown, discontinue and re-order from Quick Search* Active Finasteride 5 MG 1 tab(s) orally once a day; Duration: 90 days Active Bisoprolol-hydroCHLOR Othiazide 10/6.25MG 1 TAB(S) ORALLY ONCE A DAY; Duration: 90 DAYS *Please review and pick correct strength-formulatio n from [employer] options. If intended option is [...] Status Risk Notes Problem Paroxysmal atrial fibrillation (840678481) Paroxysmal atrial fibrillation (I48.0) Active confirmed Problem Chronic obstructive pulmonary disease with acute lower respiratory infection (894548378) Chronic obstructive pulmonary disease with acute lower respiratory infection (J44.0) Active confirmed Problem Palpitations (41953798) Palpitations (R00.2) Active confirmed Problem Weakness (88526483) Weakness (R53.1) Active con firmed Problem Nicotine dependence (93334938) Personal history of nicotine dependence (Z87.891) Active confirmed Problem Tobacco use (905732493) Tobacco use disorder (Z72.0) Active confirmed Problem Hyperlipidemia (47138160) Hyperlipemia, 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 Problem Essential hypertension (94002513) Hypertension, essential (I10) Active confirmed Problem Body mass index 25-29 - overweight (323921729) BMI 25.0-25.9,adult (Z68.25) Active confirmed Problem Chronic obstructive pulmonary disease (71770637) 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 Problem Orthostatic hypotension (83147190) Orthostasis (I95.1) Active confirmed Problem Gastroesophageal reflux disease (068151865) Gastroesophageal reflux disease, esophagitis presence not specified (K21.9) Active confirmed Problem Body mass index 25-29 - overweight (552884785) BMI 28.0-28.9,adult (Z68.28) Active confirmed Problem Ataxia (30489175) Ataxia (R27.0) Active confirm ed Problem Syncope and collapse (452286131) Pre-syncope (R55) Active confirmed Problem Pulmonary nodule (577467254) Pulmonary nodule (R91.1) Active confirmed Problem Oropharyngeal dysphagia (98617066) Oropharyngeal dysphagia (R13.12) Active confirmed Problem Abdominal aortic aneurysm without rupture (disorder) (29466796) Abdominal aortic aneurysm (AAA) without rupture (I71.4) Active confirmed Vital Signs Heart Rate 96 /min 02/18/2024 Temperature 97.8 degrees Fahrenheit 02/18/2024 Blood pressure diastolic 82 mm Hg 02/18/2024 Height 5 ft 9 in in 02/18/2024 Blood pressure systolic 130 mm Hg 02/18/2024 Weight 189.2 lbs 02/18/2024 BMI 27.94 kg/m2 02/18/2024 Encounters Encounter Location Date Provider Diagnosis [facility] [address] [place] [address] 09/09/2024 Provider Migration Hyperlipemia, idiopathic familial E78.5 ; Hypertension, essential I10 ; Paroxysmal atrial fibrillation I48.0 and COPD with chronic bronchitis J44.9 [facility] [address] [place] [address] 02/18/2024 Tre Besson Immunization(s) administered Z23 ; Hyperlipemia, idiopathic familial E78.5 ; Hypertension, essential I10 ; Paroxysmal atrial fibrillation I48.0 ; Personal history of nicotine dependence Z87.891 and COPD with chronic bronchitis J44.9 [facility] [address] [facility] [address] [place] [address] 02/16/2024 Tre Besson [facility] [address] [place] [address] 10/24/2024 Tre Besson [facility] [address] [facility] [address] [place] [address] 11/20/2024 Tre Besson Assessments Encounter Date Diagnosis [...] End Date [employer] [address] [place] [address] [id number] Tae Wagoner Self - patient is the [...]
[2025-02-14 12:53] LABS: PHA INR Fingerstick 2.2 (0.9-1.1)
== END 2025-02-14 14:48 ==
LOC: ACC 10:58
PROVIDERS: PCP Internal Medicine Adolescent Medicine; Visit Provider Internal Medicine Adolescent Medicine
DX: I48.91 Unspecified atrial fibrillation (principal); Z79.01 Long term (current) use of anticoagulants
CPT/HCPCS: 85610; 99211; G0463

== ENCOUNTER 2025-03-28 10:52 | Outpatient (CLI) | payer MEDICARE, SELFPAY ==
--- OUTSIDE RECORDS SUMMARY | 2024-09-09 17:30 | XMS_ITS ---
Author Organization [facility] Address [address] [facility] [address] [place] [address] Care Team Providers Care [employer]ayer [employer] Name Role Phone True Tre Primary Care Provider Migration, Provider Unavailable Unavailable REASON FOR VISIT [facility] Conversion Encounter Medications Medication SIG (Take, Route, Frequency, Duration) Notes Start Date End Date Status Tylenol Extra Strength 500 MG 2 tab(s) orally Q6H prn Active Fenofibrate 54 MG 1 tab(s) orally once a day; Duration: 90 days Active Breztri Aerosphere 160 MCG-4.8 MCG-9 MCG/INH 2 PUFF(S) INHALED 2 TIMES A DAY; Duration: 90 DAYS *Please review and pick correct strength-formulatio n from [employer] options. If intended option is not shown, discontinue and re-order from Quick Search* Active Multivitamin MULTIPLE VITAMINS 1 CAP(S) ORALLY ONCE A DAY *Please review and pick correct strength-formulatio n from [employer] options. If intended option is not shown, [...] review and pick correct strength-formulatio n from [employer] options. If intended option is not shown, discontinue and re-order from Quick Search* Active Encounters Encounter Location Date Provider Diagnosis [facility] MAL [address] [place] [address] 09/09/2024 Provider Migration Hyperlipemia, idiopathic familial E78.5 [...] *Please review and pick correct strength-formulation from [employer] options. If intended option is not shown, [...] *Please review and pick correct strength-formulation from [employer] options. If intended option is not shown, discontinue and re-order from Quick Search* Progress Notes * Tae WAGONERDOB:1950 (74 yo M)Acc No.[id number]:09/09/2024 Patient: Tae RICK Provider: Moses Dalal :1950 A ge:74 Y S ex:Male Date:09/09/2024 Address:[address] [place] [address], [id number] Pcp:Tre Biswas Subjective: * Chief Complaints: * [...] pick correct [facility]formulation [facility] options. If intended option is not [...] Electronic signature of Prov ider Migration on 03/28/2025 at 11:15 AM EDT Sign off status: Pending * Provider: Moses araujo Migration Date: 0 09/09/2024 Generated for Reina danielle/Simon/Antoniaitting on: 1 11:15 AM EDT
--- OUTSIDE RECORDS SUMMARY | 2025-03-28 11:15 | XMS_ITS | Patient Health Record ---
Author Organization [facility] Address [address] [facility] [address] [place] [address] Care Team Providers Care Die Press Operator Name Role Phone Tre Biswas Primary Care Provider [phone] Migration, Provider Unavailable Unavailable Allergies No Known [...] SECONDARY TO AMI M-PHA INR Fingerstick Reviewed date:02/14/2025 01:09:05 PM Interpretation: Performing Lab: Notes/Report: POCINRFS 2.2 0.9-1.1 Results sent to: Tre Biswas MD Pharmacist recommendation for Warfarin therapy is: PATIENT INR 2.2 TODAY VIA FINGERSTICK. RECOMMENDED PATIENT CONTINUE WITH WARFARIN 2.5 MG ON MON/WED/WED; 5 MG ON SUN/TUE/ESTRELLA/SAT. FOR DETAILED INFORMATION-PLEASE [...] 4 hrs; Duration: 30 days 10/24/2024 Active Breztri Aerosphere 160 MCG-4.8 MCG-9 MCG/INH 2 PUFF(S) INHALED 2 TIMES A DAY; Duration: 90 DAYS *Please review and pick correct strength-formulatio n from [employer] options. If intended option is not shown, discontinue and re-order from Quick Search* Active Omeprazole 40 MG 1 cap(s) orally once a day; Duration: 90 days Active Multivitamin MULTIPLE VITAMINS 1 CAP(S) ORALLY ONCE A DAY *Please review and pick correct strength-formulatio n from [employer] options. If intended option is not shown, discontinue and re-order from Quick Search* Active Finasteride 5 MG 1 tab(s) orally once a day; Duration: 90 days Active Bisoprolol-hydroCHLOR Othiazide 10-6.25 MG Take 1 tablet by mouth once daily; Duration: 90 Active Terazosin HCl 5 MG 1 cap(s) orally once a day (at bedtime); Duration: 90 days Active Atorvastatin Calcium 40 MG Take 1 tablet by mouth once daily; Duration: 90 Active Warfarin Sodium 5 MG TAKE ONE TABLET BY MOUTH ON WEDNESDAY, WEDNESDAY AND WEDNESDAY THEN ONE-HALF TABLET ALL OTHER DAYS DIRECTED FOR 90 DAYS; Duration: 90 Active Fenofibrate 54 MG Take 1 tablet by mouth once daily; Duration: 90 Active Immunizations Vaccine Route Administration Date Status [...] Status Risk Notes Problem Paroxysmal atrial fibrillation (506960899) Paroxysmal atrial fibrillation (I48.0) Active confirmed Problem Chronic obstructive pulmonary disease with acute lower respiratory infection (278102602) Chronic obstructive pulmonary disease with acute lower respiratory infection (J44.0) Active confirmed Problem Palpitations (19663473) Palpitations (R00.2) Active confirmed Problem Weakness (22800494) Weakness (R53.1) Active con firmed Problem Nicotine dependence (44396977) Personal history of nicotine dependence (Z87.891) Active confirmed Problem Tobacco use (712525799) Tobacco use disorder (Z72.0) Active confirmed Problem Hyperlipidemia (70455902) Hyperlipemia, 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 Problem Essential hypertension (53135469) Hypertension, essential (I10) Active confirmed Problem Body mass index 25-29 - overweight (185862054) BMI 25.0-25.9,adult (Z68.25) Active confirmed Problem Chronic obstructive pulmonary disease (04940222) 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 Problem Orthostatic hypotension (74038042) Orthostasis (I95.1) Active confirmed Problem Gastroesophageal reflux disease (980410854) Gastroesophageal reflux disease, esophagitis presence not specified (K21.9) Active confirmed Problem Body mass index 25-29 - overweight (887289288) BMI 28.0-28.9,adult (Z68.28) Active confirmed Problem Ataxia (67700149) Ataxia (R27.0) Active confirm ed Problem Syncope and collapse (235715587) Pre-syncope (R55) Active confirmed Problem Pulmonary nodule (555965222) Pulmonary nodule (R91.1) Active confirmed Problem Oropharyngeal dysphagia (78228259) Oropharyngeal dysphagia (R13.12) Active confirmed Problem Abdominal aortic aneurysm without rupture (disorder) (83717801) Abdominal aortic aneurysm (AAA) without rupture (I71.4) Active confirmed Encounters Encounter Location Date Provider Diagnosis [facility] [address] [facility] [address] [place] [address] 09/09/2024 Provider Migration Hyperlipemia, idiopathic familial E78.5 ; Hypertension, essential I10 ; Paroxysmal atrial fibrillation I48.0 and COPD with chronic bronchitis J44.9 [facility] [address] [place] [address] 10/24/2024 Tre Biswas [facility] [address] [facility] [address] [place] [address] 11/20/2024 Tre Biswas Assessments Encounter Date Diagnosis (ICD [...] End Date [employer] [address] [place] [address] [id number] Tae Wagoner Self - patient is the [...]
--- OUTSIDE RECORDS SUMMARY | 2025-03-28 11:15 | XMS_ITS | Clinical Summary ---
Author Organization [facility] Address [address] [id number] Care Team Providers Care School Psychologist Name Role Phone Pcp, No Primary Care [...] 08/11/1996 UKY-Zoster Vaccines (1 of 2) 08/18/1999 [id number]-16 Vaccine (4 - season) 2025 06/17/2021, 08/14/2020, [...] this topic Insurance [employer] Care Teams School Psychologist Relationship Specialty Start Date End Date Pcp, Arianna [address] [place] [address] PCP - General Family Medicine 03/03/24
[2025-03-28 14:08] LABS: PHA INR Fingerstick 2.8 (0.9-1.1)
== END 2025-03-28 14:14 ==
LOC: ACC 10:53
PROVIDERS: PCP Internal Medicine Adolescent Medicine; Visit Provider Internal Medicine Adolescent Medicine
DX: I48.91 Unspecified atrial fibrillation (principal); Z79.01 Long term (current) use of anticoagulants
CPT/HCPCS: 85610; 99211; G0463

== ENCOUNTER 2025-05-06 11:52 | Emergency (ER) | payer MEDICARE, SELFPAY ==
--- OUTSIDE RECORDS SUMMARY | 2024-09-09 16:30 | XMS_ITS ---
Author Organization [facility] Address [address] [facility] [address] [place] [address] Care Team Providers Care Pickle Solution Maker Name Role Phone Tre Biswas Primary Care Provider [phone] Migration, Provider Unavailable Unavailable REASON FOR VISIT [facility] Conversion Encounter Medications Medication SIG (Take, [...] review and pick correct strength-formulatio n from [employer] options. If intended option is not shown, discontinue and re-order from Quick Search* Active Multivitamin MULTIPLE VITAMINS 1 CAP(S) ORALLY ONCE A DAY *Please review and pick correct strength-formulatio n from [employer] options. If intended option is not shown, [...] review and pick correct strength-formulatio n from [employer] options. If intended option is not shown, discontinue and re-order from Quick Search* Active Encounters Encounter Location Date Provider Diagnosis [facility] MAL [address] [facility] [address] [place] [address] 09/09/2024 Provider Migration Hyperlipemia, idiopathic familial E78.5 [...] *Please review and pick correct strength-formulation from [employer] options. If intended option is not shown, [...] Notes * Tae WAGONERDOB:1950 (74 yo M)Acc No.[id number]:09/09/2024 Patient: Tae RICK Provider: Moses Dalal :1950 A ge:74 Y S ex:Male Date:09/09/2024 Address:[address] [place] [address], [facility], [id number] Pcp:Tre Biswas Subjective: * Chief Complaints: * [facility] . [facility] * Medical History: * Medications: T aking Tylenol Extra Strength 500 MG Tablet 2 tab(s) orally Q6H , Notes to Pharmacist: prn, Taking Multivitamin MULTIPLE VITAMINS CAPSULE 1 CAP(S) ORALLY ONCE A DAY , Notes to Pharmacist: *Please review and pick correct [facility]-formulation from [facility]. If intended option is not shown, [...] *Please review and pick correct strength-formulation from [employer] options. If intended option is not shown, [...] *Please review and pick correct [facility]ulation [facility]. If intended option is not [...] Electronic signature of Prov valerier Migration on 05/06/2025 at 11:59 AM EST Sign off status: Pending * Provider: Moses araujo Migration Date: 0 09/09/2024 Generated for Reina danielle/Simon/Alisia on: 1 07/06/2024 11:59 AM EST
--- OUTSIDE RECORDS SUMMARY | 2025-04-12 06:30 | XMS_ITS ---
Author Organization [facility] Address [address] [facility] [address] [place] [address] Care Team Providers Care Assistance Coordinator Name Role Phone Tre Biswas Primary Care Provider Katie Joann Unavailable [phone] Allergies No Known Allergies Results Component Value Reference Range Notes LIPID PANEL, STANDARD (7600) Reviewed date:04/14/2025 09:24:04 AM Interpretation: Performing Lab:HELEN Fingo Jojo-Jeremiah Palaciose[address] [facility] FacilityroyceTooele Valley HospitalJeremiah gutierrezZftqXQ[address] Carlos Eduardo Valverde Notes/Report: NON-FASTING; NON-FASTING; NON-FASTING; [...] LDL-C. [place] ALATORRE et al. CLARA. 2013;310(19): 6496-9107 (http://education.AppleTreeBook.Eqalix/faq/VSO835) CHOL/HDLC RATIO 2.6 <5.0 (calc) NON HDL CHOLESTEROL 74 <130 mg/dL (calc) For patients with diabetes plus 1 major ASCVD risk factor, treating to a non-HDL-C goal of <100 mg/dL (LDL-C of <70 mg/dL) is considered a therapeutic option. COMPREHENSIVE METABOLIC PANLuna Jorgensen ([id number]) Reviewed date:04/14/2025 09:24:04 AM Interpretation: Performing Lab:HELEN [employer] [id number] [employer] [facility], [facility] HealthAzpvTB[address] Carlos Eduardo Valverde Notes/Report: NON-FASTING; NON-FASTING; NON-FASTING; [...] Reviewed date:04/14/2025 09:24:05 AM Interpretation: Performing Lab:HELEN [employer] Vision[employer] [employer], Essentia HealthJzrlZT[address] Carlos Eduardo Valverde Notes/Report: NON-FASTING; NON-FASTING; NON-FASTING; [...] MPV 12.4 7.5-12.5 fL ABSOLUTE NEUTROPHILS 5474 8219-1644 cells/uL ABSOLUTE LYMPHOCYTES 2429 850-3900 cells/uL ABSOLUTE MONOCYTES 519 200-950 cells/uL ABSOLUTE EOSINOPHILS 308 15-500 cells/uL ABSOLUTE BASOPHILS 70 0-200 cells/uL NEUTROPHILS 62.2 LYMPHOCYTES 27.6 MONOCYTES 5.9 EOSINOPHILS 3.5 BASOPHILS 0.8 TSH W/REFLEX TO FT4 (07846) Reviewed date:04/14/2025 09:24:05 AM Interpretation: Performing Lab:CB, [facility] [address], [facility] CenterNttyZP[address] Carlos Eduardo Valverde Notes/Report: NON-FASTING; NON-FASTING; NON-FASTING; [...] review and pick correct strength-formulatio n from GordianTec options. If intended option is not shown, discontinue and re-order from Quick Search* Active Tylenol Extra Strength 500 MG 2 tab(s) orally Q6H prn Active Immunizations Vaccine Route Administration Date Status Comme nts Fluzone High Dose IM Intramuscular 04/12/2025 Administered Problems Problem Type SNOMED Code ICD Code Onset Dates Problem Status W/U Status Risk Notes Problem Information temporarily unavailable Benign prostatic hyperplasia with lower urinary tract [...] 04/12/2025 Encounters Encounter Location Date Provider Diagnosis [facility] [address] [facility] [address] [place], [place] [address] 04/12/2025 Joann Wilson Hyperlipemia, idiopathic familial E78.5 [...] Months,prn, Estee son: Progress Notes * Tae LOPESDOB:1950 (74 yo M)Acc No.[id number]:04/12/2025 Progress Notes Patient: Tae RICK Provider: ROSALES Lopez :1950 A ge:74 Y S ex:Male Date:04/12/2025 Address:[address] [place] [address] [id number] Pcp:Tre Biswas Subjective: * Chief Complaints: * [...] Esophageal reflux, colonoscopy in October 2013, normal, [facility] 06/23 with nonflow limiting disease, Negatvie low [...] N ormal Mood/Affect. Assessment: * Assessment: 1. Ron simms annual wellness visit, subsequent - Z00.00 (Primary) 2 . 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 H ypertension, essential - I10 ? 4 . P aroxysmal atrial fibrillation - I48.0 5 . P ersonal history of nicotine dependence - Z87.891 6 . 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 7 . B NC 26.0-26.9,adult - Z68.26 8 . T obacco [...] 09:24 AM EST ?LAB: COMPREHENSIVE METABOLIC PANEL (58738)* Value Reference Range G LUCOSE 106 H [...] 09:24 AM EST ?LAB: CBC (INCLUDES DIFF/PLT) (8074)* Value Reference Range W ANIA BLOOD CELL [...] - % * A BSOLUTE NEUTROPHILS 5474 0304-6699 - cells/uL * L YMPHOCYTES 27.6 - [...] AM EST ?LAB: TSH W/REFLEX TO FT4 (78152)* Value Reference Range T SH W/REFLEX TO FT4 0.79 0.40-4.50 - mIU/L * Arianne Hernandez Ron 04/14/2025 09: 23:39 [...] 09:24 AM EST ?LAB: COMPREHENSIVE METABOLIC PANEL (91874)* Value Reference Range G LUCOSE 106 H [...] 09:24 AM EST ?LAB: CBC (INCLUDES DIFF/PLT) (1317)* Value Reference Range W ANIA BLOOD CELL [...] - % * A BSOLUTE NEUTROPHILS 5474 7050-4981 - cells/uL * L YMPHOCYTES 27.6 - [...] AM EST ?LAB: TSH W/REFLEX TO FT4 (16852)* Value Reference Range T SH W/REFLEX TO [...] 09:24 AM EST ?LAB: COMPREHENSIVE METABOLIC PANEL (35743)* Value Reference Range G LUCOSE 106 H [...] 09:24 AM EST ?LAB: CBC (INCLUDES DIFF/PLT) (3555)* Value Reference Range W ANIA BLOOD CELL [...] - % * A BSOLUTE NEUTROPHILS 5474 7312-1259 - cells/uL * L YMPHOCYTES 27.6 - [...] PV 12.4 7.5-12.5 - fL * Arianne Hrenandez 04/14/2025 09: 23:39 AM EST > pt informed-he will call back and make an apptThis lab was reviewed by Arianne Hernandez on 04/14/2025 at 09:24 AM EST ?LAB: TSH W/REFLEX TO FT4 (90417)* Value Reference Range T SH W/REFLEX TO [...] 2 times a day.?LAB: LIPID PANEL, STANDARD (7600)* Value Reference Range [...] 09:24 AM EST ?LAB: COMPREHENSIVE METABOLIC PANEL (36110)* Value Reference Range G LUCOSE 106 H [...] 09:24 AM EST ?LAB: CBC (INCLUDES DIFF/PLT) (8499)* Value Reference Range W ANIA BLOOD CELL [...] - % * A BSOLUTE NEUTROPHILS 5474 3286-9073 - cells/uL * L YMPHOCYTES 27.6 - [...] AM EST ?LAB: TSH W/REFLEX TO FT4 (45942)* Value Reference Range T SH W/REFLEX TO [...] Date: 06/12/2024 Generated for Reina danielle/Simon/eTransmitting on: 07/06/2024 11:59 AM EST History and Physical Notes * [...]
[2025-05-06] VITALS (10 sets, daily range): BP systolic 103–122; BP diastolic 51–71; PULSE 49–80; RESP 15–22; TEMP 36.7–36.8; O2SAT 93–98; BMI 26.4
--- NOTE | 2025-05-06 11:58 | ECG_ITS ---
APPROVED REPORT Exam: Resting ECG HR:55 bpm ECG Measurements Heart Rate 55 AXES NM 191 P 64 QRSd 90 QRS 70 QT 447 T 81 QTc 436 Conclusion SINUS BRADYCARDIA WITH OCCASIONAL SUPRAVENTRICULAR PREMATURE COMPLEXES BORDERLINE ECG UNCONFIRMED REPORT Electronically signed by : MARIELENA GARRIDO, 05/06/2025 23:02:24
--- NOTE | 2025-05-06 12:00 | XR_ITS ---
PROCEDURE INFORMATION: Exam: XR Chest Exam date and time: 05/06/2025 12:07 PM Age: 74 years old Clinical indication: Shortness of breath; Additional info: Short of breath TECHNIQUE: Imaging protocol: Radiologic exam of the chest. Views: 1 view. COMPARISON: CR XR CHEST 2V 02/06/2025 5:54 PM FINDINGS: Tubes, catheters and devices: EKG leads. Lungs: Mild left basilar scarring. Pleural spaces: Unremarkable. No pleural effusion. No pneumothorax. Heart/Mediastinum: Unremarkable. No cardiomegaly. Vasculature: Atherosclerosis. Bones/joints: Mild degenerative changes of the spine. IMPRESSION: No acute findings.
--- OUTSIDE RECORDS SUMMARY | 2025-05-06 12:00 | XMS_ITS | Clinical Summary ---
Author Organization [facility] Address [address] [id number] Care Team Providers Care Marble Cleaner Name Role Phone Pcp, No Primary Care [...] 08/11/1996 UKY-Zoster Vaccines (1 of 2) 08/18/1999 JLH-SPHVZ-20 Vaccine (4 - season) 2025 06/17/2021, 08/14/2020, [...] this topic Insurance [employer] Care Teams Marble Cleaner Relationship Specialty Start Date End Date Pcp, Arianna [address] [place] [address] PCP - General Family Medicine 03/03/24
--- OUTSIDE RECORDS SUMMARY | 2025-05-06 12:00 | XMS_ITS | Patient Health Record ---
Author Organization [facility] Address [address] [place] [address] Care Team Providers Care Biological Plant Operator Name Role Phone Tre Biswas Primary Care Provider [phone] Joann Wilson Unavailable [phone] Lorri Morgan Unavailable [phone] Migration, Provider Unavailable Unavailable Allergies No Known Allergies Results Component Value Reference Range Notes LIPID PANEL, STANDARD (7600) Reviewed date:04/14/2025 09:24:04 AM Interpretation: Performing Lab:HELEN, [employer] [facility] Palaciose[address] [facility] HospitalJeremiahNlarAJ[address] Carlos Eduardo Valverde Notes/Report: NON-FASTING; NON-FASTING; NON-FASTING; [...] LDL-C. [place] ALATORRE et al. CLARA. 2013;310(19): 9088-1445 (http://education.Apica.Breaktime Studios/faq/QYB283) CHOL/HDLC RATIO 2.6 <5.0 (calc) NON HDL CHOLESTEROL 74 <130 mg/dL (calc) For patients with diabetes plus 1 major ASCVD risk factor, treating to a non-HDL-C goal of <100 mg/dL (LDL-C of <70 mg/dL) is considered a therapeutic option. COMPREHENSIVE METABOLIC PANLuna Jorgensen ([id number]) Reviewed date:04/14/2025 09:24:04 AM Interpretation: Performing Lab:HELEN [employer] Ujyx[address] [employer] [facility], [facility] HospitalVrhrVB[address] Carlos Eduardo Valverde Notes/Report: NON-FASTING; NON-FASTING; NON-FASTING; [...] Reviewed date:04/14/2025 09:24:05 AM Interpretation: Performing Lab:HELEN [employer] Dcnx0410 [employer]Kl[employer] [facility], [facility] HospitalSpsgRU[address] Carlos Eduardo Valverde Notes/Report: NON-FASTING; NON-FASTING; NON-FASTING; [...] MPV 12.4 7.5-12.5 fL ABSOLUTE NEUTROPHILS 5474 2952-3165 cells/uL ABSOLUTE LYMPHOCYTES 2429 850-3900 cells/uL ABSOLUTE MONOCYTES 519 200-950 cells/uL ABSOLUTE EOSINOPHILS 308 15-500 cells/uL ABSOLUTE BASOPHILS 70 0-200 cells/uL NEUTROPHILS 62.2 LYMPHOCYTES 27.6 MONOCYTES 5.9 EOSINOPHILS 3.5 BASOPHILS 0.8 TSH W/REFLEX TO FT4 (30630) Reviewed date:04/14/2025 09:24:05 AM Interpretation: Performing Lab:CB, [facility] Zapm[address] [facility], [facility] HospitalMlviZP[address] Carlos Eduardo Valverde Notes/Report: NON-FASTING; NON-FASTING; NON-FASTING; NON-FASTING TSH W/REFLEX TO FT4 0.79 0.40-4.50 mIU/L M-PHA INR Fingerstick Reviewed date:03/28/2025 02:32:28 PM Interpretation: Performing Lab: Notes/Report: POCINRFS 2.8 0.9-1.1 Results sent to: Tre Biswas MD Pharmacist recommendation for Warfarin therapy is: PATIENT INR 2.8 TODAY VIA FINGERSTICK. RECOMMENDED PATIENT CONTINUE WITH WARFARIN 2.5 MG ON MON/WED/WED; 5 MG ON WED/WED/ESTRELLA/SAT. FOR DETAILED INFORMATION-PLEASE REVIEW PROGRESS NOTE IN THE ASSESSMENTS AND ANTICOAGULATION CLINIC SECTION ANTICOAGULATION CLINIC IN PCI/CLINICAL REVIEW INDICATION INR RANGE THERAPY FOR DVT, PE, ATRIAL FIB; 2.0 - 3.0 PROPHYLAXIS FOR VTE THERAPY FOR MECHANICAL HEART 2.5 - 3.5 VALVE; PREVENTION OF SYSTEMIC EMBOLISM SECONDARY TO AMI M-PHA INR Fingerstick Reviewed date:01/03/2025 02:00:50 PM [...] Duration) Notes Start Date End Date Status Alexis Cruzphere 160-9-4.8 MCG/ACT 2 puffs Inhalation Twice a day; Duration: 90 days 03/28/2025 Active Fenofibrate 54 MG 1 tablet with food Orally Once a day; Duration: 90 days Active Terazosin [...] Once a day; Duration: 90 days Active Multivitamin MULTIPLE VITAMINS 1 CAP(S) ORALLY ONCE A DAY *Please review and pick correct strength-formulatio n from GetNotes options. If intended option is not shown, discontinue and re-order from Quick Search* Active Albuterol Sulfate HFA 108 (90 Base) MCG/ACT 1 puff as needed Inhalation every 4 hrs; Duration: 30 days 10/24/2024 Active Bisoprolol-hydroCHLOR Othiazide 10-6.25 MG Take 1 [...] Fluzone High Dose IM Intramuscular 02/18/2024 Administered Fluzone High Dose IM Intramuscular 04/12/2025 Administered Fluvirin (MEDICARE ONLY) IM Intramuscular 03/06/2016 Admin istered Arexvy IM Intramuscular 05/12/2023 Administered Problems Problem Type SNOMED Code ICD Code Onset Dates Problem Status W/U Status Risk Notes Problem Information temporarily unavailable Paroxysmal atrial fibrillation (I48.0) Active confirmed Problem Information temporarily unavailable Chronic obstructive pulmonary disease with acute lower respiratory infection (J44.0) Active confirmed Problem Information temporarily unavailable Palpitations (R00.2) Active confirmed Problem Information temporarily unavailable Weakness (R53.1) Active confirmed Problem Information temporarily unavailable Personal history of nicotine dependence (Z87.891) Active confirmed Problem Information temporarily unavailable Tobacco use disorder (Z72.0) Active confirmed Problem Information temporarily unavailable Hyperlipemia, 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 Problem Information temporarily unavailable Hypertension, essential (I10) Active confirmed Problem Information temporarily unavailable BMI 25.0-25.9,adult (Z68.25) Active confirmed Problem Information temporarily unavailable 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 Problem Information temporarily unavailable Orthostasis (I95.1) Active confirmed Problem Information temporarily unavailable Gastroesophageal reflux disease, esophagitis presence not specified (K21.9) Active confirmed Problem Information temporarily unavailable BMI 28.0-28.9,adult (Z68.28) Active confirmed Problem Information temporarily unavailable Ataxia (R27.0) Active confirmed Problem Information temporarily unavailable Pre-syncope (R55) Active confirmed Problem Information temporarily unavailable Pulmonary nodule (R91.1) Active confirmed Problem Information temporarily unavailable Oropharyngeal dysphagia (R13.12) Active confirmed Problem Information temporarily unavailable Abdominal aortic aneurysm (AAA) without rupture (I71.4) Active confirmed Problem Information temporarily unavailable Benign prostatic hyperplasia with lower urinary tract symptoms, symptom details unspecified (N40.1) Active confirmed Vital Signs Heart Rate 72 irregular /min 04/12/2025 Temperature 97.5 degrees Fahrenheit 04/12/2025 Blood pressure diastolic 66 mm Hg 04/12/2025 Height 5 ft 9 in in 04/12/2025 Blood pressure systolic 110 mm Hg 04/12/2025 Weight 180.6 lbs 04/12/2025 BMI 26.67 kg/m2 04/12/2025 Encounters Encounter Location Date Provider Diagnosis [facility] [address] [place] [address] 09/09/2024 Provider Migration Hyperlipemia, idiopathic familial E78.5 ; Hypertension, essential I10 ; Paroxysmal atrial fibrillation I48.0 and COPD with chronic bronchitis J44.9 [facility] [address] [place] [facility] [address] [facility] [address] [place] [address] 04/12/2025 Joann Wilson Hyperlipemia, idiopathic familial E78.5 ; Medicare annual wellness visit, subsequent Z00.00 ; Hypertension, essential I10 ; Paroxysmal atrial fibrillation I48.0 ; Personal history of nicotine dependence Z87.891 ; COPD with chronic bronchitis J44.9 ; BMI 26.0-26.9,adult Z68.26 ; Tobacco use disorder Z72.0 ; Benign prostatic hyperplasia with lower urinary tract symptoms, symptom details unspecified N40.1 and Immunization(s) administered Z23 [facility] [address] [place] [address] 10/24/2024 Tre Besson [facility] [address] [place] [address] 11/20/2024 Tre Besson [facility] [place] [address] [address] 03/28/2025 Lorri Morgan COPD with chronic bronchitis J44.9 [facility] [place] [address] [address] 03/28/2025 Tre Besson [facility] [place] [address] [address] 04/03/2025 Joann Wilson Assessments Encounter Date Diagnosis (ICD Code) Assessment Notes Treatment Notes Treatment Clinical Notes Section Notes 09/09/2024 Hyperlipemia, idiopathic familial (ICD-10 - E78.5) 04/12/2025 Hyperlipemia, idiopathic familial (ICD-10 - E78.5) On high-dose statin. No changes in plan. Check labs to monitor medication effectiveness and toxicity. I will review labs personally 04/12/2025 Medicare annual wellness visit, subsequent (ICD-10 - Z00.00) Well Visit, Over 65: Care Instructions material was published 03/28/2025 COPD with chronic bronchitis (ICD-10 - J44.9) 04/12/2025 Hypertension, essential (ICD-10 - I10) Well-controll ed on current regimen, no changes 09/09/2024 Hypertension, essential (ICD-10 - I10) 09/09/2024 Paroxysmal atrial fibrillation (ICD-10 - I48.0) 04/12/2025 Paroxysmal atrial fibrillation (ICD-10 - I48.0) On appropriate anticoagulation. No changes in plan 04/12/2025 Personal history of nicotine dependence (ICD-10 - Z87.891) Learning About Benefits of Quitting Smoking material was published 09/09/2024 COPD with chronic bronchitis (ICD-10 - J44.9) 04/12/2025 COPD with chronic bronchitis (ICD-10 - J44.9) No exacerbations , continue current regimen 04/12/2025 BMI 26.0-26.9,adult (ICD-10 - Z68.26) 04/12/2025 Tobacco use disorder (ICD-10 - Z72.0) 04/12/2025 Benign prostatic hyperplasia with lower urinary tract symptoms, symptom details unspecified (ICD-10 - N40.1) 04/12/2025 Immunization(s) administered (ICD-10 - Z23) Plan Of Treatment Pending Test Test Name [...] End Date [employer] MEDICARE [address] [place] [address] [id number] Tae Wagoner Self - patient is the insured Medications Administered Medication Instructions Date of Administration Dosage Notes Kenalog 08/06/2014 1 Kenalog 05/22/2015 1 mL Medical (General) History Medical History History ICD Code COPD with Chronic Bronchitis hypertension anxiety BPH paroxysmal atrial fibrillation Esophageal reflux colonoscopy in October 2013, normal [facility] 06/23 with nonflow limiting disease Negatvie low dose CT scan 06/23 and vianney l again 01/25 and normal 06/30 Normal US of ABD 06/23 Negative Cologuard screen 01/2018 and 02/06 021 Surgical History Surgery Date(Month/Year) nodule removed from voicebox 07/2015
--- NOTE | 2025-05-06 12:06 | ED_ITS ---
<Statement entered by Chauncey Mtz MD - 05/06/25 15:22> I was consulted by the [facility], and we discusssed the complexity of the problems being adressed. I approved the treatment and management plan for this patient's care in the Emergency Department, thus performing a substantive portion of the medical decision making. Chauncey Mtz MD Discharge Plan Disposition Chief Complaint: Syncope Prescriptions Prescriptions: No Action acetaminophen 500 mg capsule 500 mg PO Q6H PRN (Reason: PAIN) aspirin [Adult Low Dose Aspirin] 81 mg tablet,delayed release (DR/EC) 81 mg PO ONCE bisoprolol-hydrochlorothiazide 10-6.25 mg tablet 1 tab PO ONCE finasteride 5 mg tablet 5 mg PO ONCE omeprazole 40 mg capsule,delayed release(DR/EC) 40 mg PO DAILY terazosin 5 mg capsule 5 mg PO QHS atorvastatin 40 mg tablet 40 mg PO ONCE warfarin 2.5 mg tablet 2.5 mg PO MOWEFR Patient Comments: Avtare, [place], David, Obdulia Reganzhoodi Aerosphere 160-9-4.8 mcg/actuation HFA aerosol inhaler 2 inh INHALATION BID methylprednisolone [Medrol (Efrain)] 4 mg tablets,dose pack See Rx Instructions PO PER PKG DIR Qty: 21 0RF Rx Instructions: PO PER PKG DIR azithromycin [Zithromax Z-Efrain] 250 mg tablet See Rx Instructions PO .COMPLEX Qty: 6 0RF Rx Instructions: For 250 mg dose pack: take 500 mg today (day 1), then 250 mg for 4 days (days 2-5) PO losartan 50 mg tablet See Rx Instructions .ROUTE .COMPLEX Qty: 30 0RF Dose Instruction: TAKE 1 TABLET EVERY DAY Rx Instructions: TAKE 1 TABLET EVERY DAY azithromycin 250 mg tablet 250 mg PO DAILY 4 Days Qty: 4 0RF Rx Instructions: start on day 2 of therapy warfarin 5 mg tablet 5 mg PO SUTUTHSA Rx Instructions: take as directed Referrals Follow up/Referrals: Tre Biswas MD [Primary Care Provider, Internal Medicine] - See instructions Instructions Patient Instructions: DI for Syncope in Adults (Fainting), DI for Syncope in Children (Fainting) Print Language Print Language: Afghan Discharge ED Provider: Chauncey Mtz General Adult HPI General Chief complaint: Syncope Stated complaint: syncope Time Seen by Provider: 05/06/25 11:53 History of Present Illness HPI narrative: 74-year-old male presents to the ED today for complaint of an episode while he was sitting in taoist where he got lightheaded and started sweating. He denies any chest pain no shortness of breath no abdominal pain. Patient tells me that the episode lasted about 15 minutes and now he feels better he still feels a little bit dizzy now. He describes his dizziness as an unsteady feeling. He does tell me he has had some sinus problems recently. He does have history of A-fib, hypertension, prostate problems, high cholesterol. He has COPD, CAD, diastolic dysfunction.. He does not have any stents or has not been cathed. He does see Dr. Cardenas and Dr. Lincoln. Related Data Home Medications ?Medication ?Instructions ?Recorded ?Confirmed acetaminophen 500 mg capsule 500 mg PO Q6H PRN PAIN 12/11/20 aspirin 81 mg tablet,delayed 81 mg PO ONCE HEART 07/1206/25/21 release (Adult Low Dose Aspirin) bisoprolol 10 1 tab PO ONCE BLOOD PRESSURE 07/12/17 06/25/21 mg-hydrochlorothiazide 6.25 mg tablet finasteride 5 mg tablet 5 mg PO ONCE PROSTATE 06/25/21 omeprazole 40 mg capsule,delayed 40 mg PO DAILY STOMAC H 07/12/17 06/25/21 release terazosin 5 mg capsule 5 mg PO QHS PROSTATE 8 06/25/21 atorvastatin 40 mg tablet 40 mg PO ONCE Cholesterol 06/25/21 warfarin 2.5 mg tablet 2.5 mg PO MOWEFR Blood thinn er 07/13/17 05/06/25 budesonide 160 mcg-glycopyr 9 2 inh inhalation BID 06/25/21 mcg-formot 4.8 mcg/actuation HFA inhaler (Breztri Aerosphere) warfarin 5 mg tablet [facility] 05/06/25 05/06/25 Previous Rx's ?Medication ?Instructions ?Recorded methylprednisolone 4 mg tablets in See Rx Instructions PO PER PKG DIR 06/25/21 a dose pack (Medrol (Efrain)) #21 tabs azithromycin 250 mg tablet See Rx Instructions PO .COM PLEX #6 09/01/21 (Zithromax Z-Efrain) tabs losartan 50 mg tablet See Rx Instructions .Route 0 07/27/23 .COMPLEX #30 tabs azithromycin 250 mg tablet 250 mg PO DAILY 4 days #4 t abs 02/06/25 Allergies Allergy/AdvReac Type Severity Reaction Status Date / Time No Known Allergies Allergy Verified 06/25/21 11:06 [facility] Disclaimer: The information contained in this section may have been updated after the patient was seen, as this information can be updated by other users. Social History Smoking Status: Current every day smoker tobacco type: cigarettes second hand exposure: Yes alcohol intake: never substance use type: denies use current occupational status: employed and disabled Travel in the last 8 weeks?: None caffeine: Yes Have you lived/traveled outside [place] in past 30 days?: No Contact w/someone who lives/traveled outside US past 30 days?: No Exposure to someone with infectious disease in past 14 days?: No Do you have a fever (greater than 100.4 F or 38 C)?: No Have you tested positive for COVID-19?: No Exposed to someone with COVID-19 in past 14 days?: No Do you have a sore throat?: No Do you have a cough?: No Do you have any weakness?: No Do you have any diarrhea?: No Are you experiencing any unusual bleeding?: No Do you have any muscle aches/pain?: No Do you have any abdominal pain?: No Are you experiencing loss of taste or smell?: No Other Medical History Have you received the Flu Vaccine for this season: No Have you received the Pneumonia Vaccine: Yes ROS Obtained: Yes Systems reviewed as appropriate & no additional complaints except as documented Constitutional Constitutional: Reports as per HPI Physical Exam General General appearance: alert and in no apparent distress Head Head exam: atraumatic and normocephalic Eye Eye exam: Present normal appearance, PERRL and EOMI ENT ENT exam: Present normal oropharynx and mucous membranes moist Neck Neck exam: Present full ROM and trachea midline Respiratory Respiratory exam: Present normal lung sounds bilaterally Cardiovascular Cardiovascular exam: Present normal rhythm, bradycardia, normal heart sounds, +S1 and +S2 Abdominal Exam Abdominal exam: Present soft and normal bowel sounds Extremities Exam Extremities exam: Present full ROM and normal capillary refill Neurological Exam Neurological exam: Present alert, oriented X3 and normal gait Skin Skin exam: Present warm, dry and intact Medical Decision Making Medical Records Screening: Per USPSTF and CDC recommendations, given the prevalence of disease in our region, it is our hospital?s policy to screen for HIV and viral Hepatitis for all patients aged 18 and over and those with ongoing risk factors. [place] Inquiry Pt receiving controlled substance: No Hilario was queried for this patient: No Vital Signs: 05/06/25 12:03 05/06/25 12:04 05/06/25 12:30 Temperature 98.2 F Temperature Source Oral Pulse Rate 54 L 55 L Pulse Rate [Left Radial] 56 L Respiratory Rate 20 19 21 Blood Pressure 114/60 105/62 L Blood Pressure [Right Arm] 114/60 Blood Pressure Mean [Right Arm] 78 02 Sat by Pulse Oximetry 97 96 95 Oxygen Delivery Method Room Air Room Air Room Air 05/06/25 12:33 05/06/25 13:31 05/06/25 13:45 Temperature Temperature Source Pulse Rate 49 L 60 64 Pulse Rate [Left Radial] Respiratory Rate 21 19 15 Blood Pressure 105/62 L 108/51 L Blood Pressure [Right Arm] Blood Pressure Mean [Right Arm] 02 Sat by Pulse Oximetry 95 97 97 Oxygen Delivery Method Room Air Room Air 05/06/25 14:00 Temperature Temperature Source Pulse Rate 60 Pulse Rate [Left Radial] Respiratory Rate 22 Blood Pressure 122/71 Blood Pressure [Right Arm] Blood Pressure Mean [Right Arm] 02 Sat by Pulse Oximetry 96 Oxygen Delivery Method Room Air Lab Data Lab Results 05/06/25 12:05: WBC 10.7, RBC 4.58 L, Hgb 13.9 L, Hct 43.0, MCV 93.9, MCH 30.3, MCHC 32.3, RDW 12.1, Plt Count 239, MPV 11.7 H, Neut % (Auto) 49.4, Lymph % (Auto) 39.8, Lincoln % (Auto) 6.3, Eos % (Auto) 3.6, Baso % (Auto) 0.7, Neut # (Auto) 5.3, Lymph # (Auto) 4.3, Lincoln # (Auto) 0.7, Eos # (Auto) 0.4, Baso # (Auto) 0.1, PT 27.2 H, INR 2.63 H, APTT 30.2, D-Dimer 0.45, Sodium 136, Potassium 3.5, Chloride 103, Carbon Dioxide 26, Anion Gap 10.5, BUN 15, Creatinine 1.10, Estimated Creat Clear 71, Estimated GFR 65, Est GFR ( Amer) 79, Glucose 107 H, Calcium 9.3, Magnesium 1.6, Total Bilirubin 0.6, AST 35, ALT 27, Alkaline Phosphatase 78, Troponin I < 0.01, Total Protein 7.6, Albumin 4.3, Globulin 3.3 H, Albumin/Globulin Ratio 1.3, Lipase 35 05/06/25 13:02: VBG pH 7.36, VBG pCO2 47.3, VBG pO2 49.8 H, VBG HCO3 25.9, VBG Total CO2 27.4 H, VBG O2 Saturation 86.4 H, VBG Base Excess 0.4, VBG Lactic Acid 2.0 05/06/25 14:12: Urine Color Yellow, Urine Appearance Clear, Urine pH 6.5, Ur Specific [place] 1.010, Urine Protein Negative, Urine Glucose (UA) Negative, Urine Ketones Negative, Urine Blood Negative, Urine Nitrate Negative, Urine Bilirubin Negative, Urine Urobilinogen 0.2, Ur Leukocyte Esterase Negative, Urine RBC None, Urine WBC Occasional, Ur Squamous Epith Cells None, Urine Bacteria Trace 05/06/25 12:05 05/06/25 12:05 Orders (Tests/Meds): ED MEDICATIONS Discontinued Medications Generic Name Dose Route Start Last Admin Trade Name Freq PRN Reason Stop Dose Admin Sodium Chloride 1,000 mls @ 999 mls/hr 05/06/25 13:00 05/06/25 14:27 Sod Chlor 0.9% 1000ml Bag IV 05/06/25 14:00 Infused .Q1H1M ONE Infusion Iopamidol 80 ml 05/06/25 13:03 05/06/25 13:05 Iopamidol-370 (76%);100ml Bottle IV 05/06/25 13:04 80 ml ONCE ONE Administration Sodium Chloride 10 ml 05/06/25 13:03 05/06/25 13:05 Sodium Chloride 0.9% 10ml Syr (Rad Only) IV 05/06/25 13:04 10 ml ONCE ONE Administration Sodium Chloride 50 ml 05/06/25 13:03 05/06/25 13:05 0.9 % Sodium Chloride 50 Ml Vial IV 05/06/25 13:04 50 ml ONCE ONE Administration ORDERS Category Date Time Status CT angio head Stat Cat Scan 05/06/25 12:[address] angio neck Stat Cat Scan 05/06/25 12:[address] head/brain wo con Stat Cat Scan 05/06/25 12:37 Completed Chest XR -- portable [XR chest portable] Stat Exams 05/06/25 12:00 Completed CBC [Complete Blood Count Auto Diff] Stat Lab 05/06/25 12:05 Completed Comprehensive Metabolic Panel Stat Lab 05/06/25 12:05 Completed D-Dimer Stat Lab 05/06/25 12:05 Completed Lipase Stat Lab 05/06/25 12:05 Completed Magnesium Stat Lab 05/06/25 12:05 Completed PT INR [Prothrombin Time INR] Stat Lab 05/06/25 12:05 Completed PTT [Activated Partial Thrombo Time] Stat Lab 05/06/25 12:05 Completed Trop I [Troponin I] Stat Lab 05/06/25 12:05 Completed Troponin I Q3H Lab 05/06/25 14:48 Received Troponin I Q3H Lab 05/06/25 18:15 Ordered Urinalysis and Microscopic Stat Lab 05/06/25 14:12 Completed Venous Blood Gas Stat RT 05/06/25 13:02 Completed Medical Decision Narrative: patient is a 74-year-old male presenting to the emergency department for evaluation of episode of feeling lightheaded, sweaty while sitting in taoist today. Patient is hemodynamically stable and nontoxic-appearing upon arrival, afebrile. Differential diagnosis includes ACS, vertigo, A-fib, symptomatic bradycardia, among others. Workup will be conducted with hematologic labs, specific imaging. Initial inventions include crystalloid bolus. [id number]-After his daughter in law arrived he told her that he got dizzy in taoist and actually passed out in his car for an unknown amount of time. I added additional labs to the work up as initially i was unaware of the syncope. Consulted Dr Mtz, we added lactate, dimer, CTA's. Initial workup reviewed by me hematologic labs are remarkable for white blood cell count of 10.7, INR was 2.6, D-dimer was 0.45, pCO2 49, CO2 27 lactic was 2. Electrolytes were normal patient's liver and kidney function were normal, troponin was less than 0.01. Awaiting CT scans CTAs were negative please see radiology report for full report.Vitals are stable and patient's symptoms are gone. Patient has had a completely negative workup at this time. Dr. Mtz had a conversation with the family about doing a follow-up appointment in the morning with Theresa's office. And they are okay with this. Patient will be discharged. He is safe for discharge home. Critical Care Critical Care Time Critical Care Time: No
[2025-05-06 12:11] LABS: Hematocrit 43.0 % (42.0-52.0); Hemoglobin 13.9 g/dL (14.1-18.0); Immature Granulocytes % 0.2 %; Mean Corpuscular HGB Conc 32.3 g/dL (31.8-35.4); Mean Corpuscular Hemoglobin 30.3 pg (27.0-31.2); Mean Corpuscular Volume 93.9 fl (80-94); Nucleated Red Blood Cells % 0 %; Platelet Count 239 K/mm3 (142-424); Red Blood Count 4.58 M/mm3 (4.60-6.20); Red Cell Distribution Width-SD 42.1 fL; White Blood Count 10.7 K/mm3 (4.8-10.8)
[2025-05-06 12:19] LABS: Alanine Aminotransferase 27 U/L (12-78); Albumin Level 4.3 g/dl (3.5-5.0); Albumin/Globulin Ratio 1.3 (1.1-1.8); Alkaline Phosphatase 78 U/L (38-126); Anion Gap 10.5 mEq/L (5-15); Aspartate Amino Transferase 35 U/L (17-59); Bilirubin,Total 0.6 mg/dl (0.2-1.3); Blood Urea Nitrogen 15 mg/dl (9-20); Carbon Dioxide 26 mmol/L (22.0-30.0); Chloride 103 mmol/L (98-107); Creatinine Clearance Estimated 71 mL/min (50-200); Creatinine,Serum 1.10 mg/dl (0.66-1.25); Estimated Glomerular Filt Rate 65 ml/min (>60); GFR (African American) 79 ML/MIN (>60); Globulin 3.3 g/dL (1.3-3.2); Lipase 35 U/L (23-300); Magnesium 1.6 mg/dl (1.6-2.3); Potassium 3.5 mmoL/L (3.5-5.1); Sodium 136 mmol/L (136-145); Total Protein,Serum 7.6 g/dl (6.3-8.2)
[2025-05-06 12:21] LABS: Activated Partial Thrombo Time 30.2 seconds (22.8-30.6); INR 2.63 (0.9-1.1); Prothrombin Time 27.2 seconds (10.1-12.5)
[2025-05-06 12:36] LABS: Troponin I < 0.01 ng/ml (0.00-0.034)
--- NOTE | 2025-05-06 12:37 | CT_ITS ---
PROCEDURE INFORMATION: Exam: CTA Head With Contrast, Arteriography Exam date and time: 05/06/2025 1:05 PM Age: 74 years old Clinical indication: Syncope and collapse TECHNIQUE: Imaging protocol: Computed tomographic angiography of the head with contrast. Exam focused on the arteries. 3D rendering (Not supervised by radiologist): MIP and/or 3D reconstructed images were created by the technologist. Radiation optimization: All CT scans at this facility use at least one of these dose optimization techniques: automated exposure control; mA and/or kV adjustment per patient size (includes targeted exams where dose is matched to clinical indication); or iterative reconstruction. Contrast material: ISOVUE; Contrast volume: 80 ml; Contrast route: INTRAVENOUS (IV); COMPARISON: CT HEAD/BRAIN WO CON 05/06/2025 1:03 PM FINDINGS: ANTERIOR CIRCULATION: Right internal carotid artery: The right ICA demonstrates calcified atherosclerosis not contributing to significant stenosis. No aneurysm. Right middle cerebral artery: Patent. No aneurysm. Right anterior cerebral artery: No occlusion or significant stenosis. No aneurysm. Left internal carotid artery: The left ICA demonstrates calcified atherosclerosis not contributing to significant stenosis. No aneurysm. Left middle cerebral artery: The left MCA appears patent without stenosis. Mild ectasia of the right MCA M2 superior division branch from the origin. No saccular aneurysm. Left anterior cerebral artery: No occlusion or significant stenosis. No aneurysm. POSTERIOR CIRCULATION: Right vertebral artery: No occlusion or significant stenosis. No aneurysm. Left vertebral artery: No occlusion or significant stenosis. No aneurysm. Basilar artery: No occlusion or significant stenosis. No aneurysm. Right posterior cerebral artery: No occlusion or significant stenosis. No aneurysm. Left posterior cerebral artery: No occlusion or significant stenosis. No aneurysm. Brain: No definite mass, mass effect, or midline shift. Cerebral ventricles: No significant ventriculomegaly. Bones/joints: Unremarkable. No acute fracture. Soft tissues: Unremarkable. IMPRESSION: No proximal intracranial arterial occlusion or high-grade stenosis seen.
--- NOTE | 2025-05-06 12:37 | CT_ITS ---
PROCEDURE INFORMATION: Exam: CT Head Without Contrast Exam date and time: 05/06/2025 1:03 PM Age: 74 years old Clinical indication: Syncope and collapse TECHNIQUE: Imaging protocol: Computed tomography of the head without contrast. Radiation optimization: All CT scans at this facility use at least one of these dose optimization techniques: automated exposure control; mA and/or kV adjustment per patient size (includes targeted exams where dose is matched to clinical indication); or iterative reconstruction. COMPARISON: No relevant prior studies available. FINDINGS: Brain: Mild brain volume loss. Mild white matter changes typical of hypertension or chronic small vessel ischemia. Cerebral ventricles: No ventriculomegaly. Paranasal sinuses: Scattered mild mucosal thickening in the visualized paranasal sinuses. Mastoid air cells: Visualized mastoid air cells are well aerated. Bones: Unremarkable. No acute fracture. Soft tissues: Unremarkable. Vasculature: Atherosclerosis. IMPRESSION: No acute findings.
--- NOTE | 2025-05-06 12:37 | CT_ITS ---
PROCEDURE INFORMATION: Exam: CTA Neck With Contrast Exam date and time: 05/06/2025 1:05 PM Age: 74 years old Clinical indication: Syncope and collapse TECHNIQUE: Imaging protocol: Computed tomographic angiography of the neck with contrast. Exam focused on the cervical segments of the vasculature. 3D rendering (Not supervised by radiologist): MIP and/or 3D reconstructed images were created by the technologist. Radiation optimization: All CT scans at this facility use at least one of these dose optimization techniques: automated exposure control; mA and/or kV adjustment per patient size (includes targeted exams where dose is matched to clinical indication); or iterative reconstruction. Contrast material: ISOVUE; Contrast volume: 80 ml; Contrast route: INTRAVENOUS (IV); COMPARISON: CT HEAD/BRAIN WO CON 05/06/2025 1:[address] CERVICAL SPINE WO CON 03/03/2024 8:23 PM FINDINGS: Right common carotid artery: No stenosis. No dissection or occlusion. Right internal carotid artery: Mild proximal right ICA calcified and noncalcified atherosclerosis not contributing to stenosis. Right external carotid artery: Mild proximal right ECA calcified and noncalcified atherosclerosis not contributing to stenosis. Left common carotid artery: No stenosis. No dissection or occlusion. Left internal carotid artery: Proximal left ICA calcified atherosclerosis causing mild, approximate 20% stenosis. Left external carotid artery: No occlusion or stenosis of the origin. Right vertebral artery: No stenosis. No dissection or occlusion. Left vertebral artery: No stenosis. No dissection or occlusion. Teeth: Dental caries are noted. Soft tissues: Normal. No significant soft tissue swelling. Bones/joints: Advanced multilevel cervical degenerative disc disease and facet arthropathy. There are central spinal canal and foraminal stenoses. Lungs: The lung apices appear mildly emphysematous. A 3.7 mm nodule in the right lung apex is stable compared to the exam of 2023. Calcified granulomata in the lung apices. Right thyroid nodules, for example a nodule measuring 5 mm. IMPRESSION: 1. No acute vascular findings in the neck. 2. 0% right ICA stenosis. 3. Mild, 20% left ICA stenosis. 4. The vertebral arteries are patent without stenoses. REFERENCES: NASCET CRITERIA. The degree of stenosis in the cervical segment of the internal carotid artery is based on NASCET criteria. Normal is no stenosis. Mild is less than 50% stenosis. Moderate is 50-69% stenosis. Severe is 70% to 99% stenosis. Total occlusion is no detectable patent lumen.
[2025-05-06 12:43] LABS: Calcium 9.3 mg/dl (8.4-10.2); Glucose 107 mg/dl (74-100)
[2025-05-06] MEDS: SODIUM CHLORIDE 0.9% 10ML SYR (RAD ONLY) 10 ML IV (13:05)
[2025-05-06] MEDS: IOPAMIDOL-370 (76%);100ML BOTTLE 80 ML IV (13:05)
[2025-05-06] MEDS: 0.9 % SODIUM CHLORIDE 50 ML VIAL IV (13:05)
[2025-05-06 13:09] LABS: Lactate Venous 2.0 mmol/L (0.4-2.0); VBG HCO3 25.9 mmol/L (23-30); VBG PCO2 47.3 mmol/L (35-51); VBG PH 7.36 mmol/L (7.31-7.41); VBG PO2 49.8 mmol/L (28-40)
[2025-05-06 13:09] LABS: D-Dimer 0.45 ug/mL (0.0-0.5)
[2025-05-06] MEDS: 0.9 % SODIUM CHLORIDE 1000ML 1,000 ML 999 ML IV (13:19)
[2025-05-06 14:17] LABS: Microscopic, Urine URINE MICROSCOPIC (MICROSCOPIC)
[2025-05-06 14:26] LABS: Bilirubin,Urine Negative (Negative); Color,Urine YELLOW (Yellow); Glucose,Urine (UA) Negative (Negative); Ketones,Urine Negative (Negative); Leukocyte Esterase,Urine Negative (Negative); PH,Urine 6.5 (5.0-8.5); Protein,Urine Negative (Negative); Specific Gravity, Urine 1.010 (1.005-1.030); Urobilinogen,Urine 0.2 EU/dl (0.2)
[2025-05-06 14:49] LABS: Bacteria,Urine Trace /lpf; WBC,Urine Occasional #/hpf (0-3)
[2025-05-06 15:28] LABS: Troponin I < 0.01 ng/ml (0.00-0.034)
== END 2025-05-06 15:36 | disposition home or self-care (01) ==
PROVIDERS: Nurse Practitioner; Emergency Provider Student in an Organized Health Care Education/Training Program; PCP Internal Medicine Adolescent Medicine
DX: R55 Syncope and collapse (principal); F17.210 Nicotine dependence, cigarettes, uncomplicated; J44.9 Chronic obstructive pulmonary disease, unspecified; I10 Essential (primary) hypertension; E78.5 Hyperlipidemia, unspecified; I48.0 Paroxysmal atrial fibrillation; Z79.01 Long term (current) use of anticoagulants
CPT/HCPCS: 70450; 70496; 70498; 71045; 80053; 81001; 82803; 83690; 83735; 84484; 85025; 85378; 85610; 85730; 93005; 93225; 93227; 96360; 99285; J7030; Q9967

== ENCOUNTER 2025-05-09 10:24 | Outpatient (CLI) | payer MEDICARE, SELFPAY ==
--- OUTSIDE RECORDS SUMMARY | 2024-09-09 16:30 | XMS_ITS ---
Author Organization [facility] Address [address] [facility] [address] [place] [address] Care Team Providers Care Graphic Coordinator Name Role Phone Tre Biswas Primary Care Provider Migration, Provider Unavailable Unavailable REASON FOR VISIT [facility] Conversion Encounter Medications Medication SIG (Take, Route, Frequency, Duration) Notes Start Date End Date Status Tylenol Extra Strength 500 MG 2 tab(s) orally Q6H prn Active Fenofibrate 54 MG 1 tab(s) orally once a day; Duration: 90 days Active Breztri Aerosphere 160 MCG-4.8 MCG-9 MCG/INH 2 PUFF(S) INHALED 2 TIMES A DAY; Duration: 90 DAYS *Please review and pick correct strength-formulatio n from [employer] options. If intended option is not shown, discontinue and re-order from Quick Search* Active Multivitamin MULTIPLE VITAMINS 1 CAP(S) ORALLY ONCE A DAY *Please review and pick correct strength-formulatio n from [employer] options. If intended option is not shown, discontinue and re-order from Quick Search* Active Finasteride 5 MG 1 tab(s) orally once a day; Duration: 90 days Active Warfarin Sodium 5 MG 1 tab(s) orally 1 tab on MWF and 1/2 tab all other days; Duration: 90 days Active Atorvastatin Calcium 40 MG 1 tab(s) orally once a day; Duration: 90 days Active Omeprazole 40 MG 1 cap(s) orally once a day; Duration: 90 days Active Terazosin HCl 5 MG 1 cap(s) orally once a day (at bedtime); Duration: 90 days Active Bisoprolol-hydroCHLOR Othiazide 10/6.25MG 1 TAB(S) ORALLY ONCE A DAY; Duration: 90 DAYS *Please review and pick correct strength-formulatio n from [employer] options. 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 Assessments Encounter Date Diagnosis (ICD Code) Assessment Notes Treatment Notes Treatment Clinical Notes Section Notes 09/09/2024 Hyperlipemia, idiopathic familial (ICD-10 - E78.5) 09/09/2024 Hypertension, essential (ICD-10 - I10) 09/09/2024 Paroxysmal atrial fibrillation (ICD-10 - I48.0) 09/09/2024 COPD with chronic bronchitis (ICD-10 - J44.9) Plan Of Treatment Medication Medication Name Sig Start Date Stop Date Notes Fenofibrate 54 MG 1 tab(s) orally once a day; Duration: 90 days Breztri Aerosphere 160 MCG-4.8 MCG-9 MCG/INH 2 PUFF(S) INHALED 2 TIMES A DAY; Duration: 90 DAYS *Please review and pick correct strength-formulation from [employer] options. If intended option is not shown, discontinue and re-order from Quick Search* Finasteride 5 MG 1 tab(s) orally once a day; Duration: 90 days Warfarin Sodium 5 MG 1 tab(s) orally 1 tab on MWF and 1/2 tab all other days; Duration: 90 days Atorvastatin Calcium 40 MG 1 tab(s) orally once a day; Duration: 90 days Omeprazole 40 MG 1 cap(s) orally once a day; Duration: 90 days Terazosin HCl 5 MG 1 cap(s) orally once a day (at bedtime); Duration: 90 days Bisoprolol-hydroCHLOROth iazide 10/6.25MG 1 TAB(S) ORALLY ONCE A DAY; Duration: 90 DAYS *Please review and pick correct strength-formulation from [employer] options. If intended option is not shown, discontinue and re-order from Quick Search* Progress Notes * Tae WAGONERDOB:1950 (74 yo M)Acc No.[id number]:09/09/2024 Patient: Tae RICK Provider: Moses Dalal :1950 A ge:74 Y S ex:Male Date:09/09/2024 Address:[address] [place] [address], [facility], [id number] Pcp:Tre Biswas Subjective: * Chief Complaints: * 1 . [facility] Conversion Encounter. * Medical History: * Medications: T aking Tylenol Extra Strength 500 MG Tablet 2 tab(s) orally Q6H , Notes to Pharmacist: prn, Taking Multivitamin MULTIPLE VITAMINS CAPSULE 1 CAP(S) ORALLY ONCE A DAY , Notes to Pharmacist: *Please review and pick correct strength-formulation from [facility] options. If intended option is not shown, discontinue and re-order from Quick Search* Objective: * Vitals: Assessment: * Assessment: 1. H yperlipemia, idiopathic familial - E78.5 (Primary) 2 . H ypertension, essential - I10 3 . P aroxysmal atrial fibrillation - I48.0 4 .?COPD with chronic bronchitis - J44.9 Plan: * Treatment: 2. H ypertension, essential Refill Bisoprolol-hydroCHLOROthiazide TABLET, 10/6.25MG, 1 TAB(S), ORALLY, ONCE A DAY, 90 DAYS, 90, Refills 3, Notes to Pharmacist: *Please review and pick correct strength-formulation from [employer] options. If intended option is not shown, discontinue and re-order from Quick Search*. 3. P aroxysmal atrial fibrillation Refill Warfarin Sodium Tablet, 5 MG, 1 tab(s), orally, 1 tab on MWF and 1/2 tab all other days, 90 days, 90, Refills 3. 4. C OPD with chronic bronchitis Refill Breztri Aerosphere AEROSOL, 160 MCG-4.8 MCG-9 MCG/INH, 2 PUFF(S), INHALED, 2 TIMES A DAY, 90 DAYS, 3, Refills 3, Notes to Pharmacist: *Please review and pick correct [facility]ulation [facility]. If intended option is not shown, discontinue and re-order from Quick Search*. 5. O thers Refill Omeprazole Capsule Delayed Release, 40 MG, 1 cap(s), orally, once a day, 90 days, 90, Refills 3; R efill Terazosin HCl Capsule, 5 MG, 1 cap(s), orally, once a day (at bedtime), 90 days, 90, Refills 3; R efill Finasteride Tablet, 5 MG, 1 tab(s), orally, once a day, 90 days, 90, Refills 5. * * Electronic signature of Prov valerier Migration on 05/09/2025 at 10:26 AM EST Sign off status: Pending * Provider: Moses araujo Migration Date: 0 09/09/2024 Generated for Reina danielle/Simon/Alisia on: 1 07/10/2024 10:26 AM EST
--- OUTSIDE RECORDS SUMMARY | 2025-04-12 06:30 | XMS_ITS ---
Author Organization [facility] Address [address] [facility] [address] [place] [address] Care Team Providers Care Roll Coverer Name Role Phone Tre Biswas Primary Care Provider [phone] Katie Joann Unavailable [phone] Allergies No Known Allergies Results Component Value Reference Range Notes LIPID PANEL, STANDARD (7600) Reviewed date:04/14/2025 09:24:04 AM Interpretation: Performing Lab:[facility] [employer] Jojo-Jeremiah Palaciose[address] [facility] CenterroyceLayton HospitalJeremiah [id number] Carlos Eduardo Valverde Notes/Report: NON-FASTING; NON-FASTING; NON-FASTING; NON-FASTING CHOLESTEROL, TOTAL 119 <200 mg/dL HDL CHOLESTEROL 45 > OR = 40 mg/dL TRIGLYCERIDES 162 <150 mg/dL LDL-CHOLESTEROL 50 Reference range: <100 Desirable range <100 mg/dL for primary prevention; <70 mg/dL for patients with CHD or diabetic patients with > or = 2 CHD risk factors. LDL-C is now calculated using the Ashish calculation, which is a validated novel method providing better accuracy than the Friedewald equation in the estimation of LDL-C. [place] ALATORRE et al. CLARA. 2013;310(19): 0398-2707 (http://education.[employer].Inktank/faq/NVL982) CHOL/HDLC RATIO 2.6 <5.0 (calc) NON HDL CHOLESTEROL 74 <130 mg/dL (calc) For patients with diabetes plus 1 major ASCVD risk factor, treating to a non-HDL-C goal of <100 mg/dL (LDL-C of <70 mg/dL) is considered a therapeutic option. COMPREHENSIVE METABOLIC PANVandana Jorgensen ([id number]) Reviewed date:04/14/2025 09:24:04 AM Interpretation: Performing Lab:[facility] [employer] Tlcf[address] [facility], [facility] CenterFcucQL[address] Carlos Eduardo Valverde Notes/Report: NON-FASTING; NON-FASTING; NON-FASTING; NON-FASTING GLUCOSE 106 65-99 mg/dL Fasting reference interval For someone without known diabetes, a glucose value between 100 and 125 mg/dL is consistent with prediabetes and should be confirmed with a follow-up test. UREA NITROGEN (BUN) 17 7-25 mg/dL CREATININE 1.18 0.70-1.28 mg/dL EGFR 64 > OR = 60 mL/min/1.73m2 BUN/CREATININE RATIO SEE NOTE: 6-22 (calc) Not Reported: BUN and Creatinine are within reference range. SODIUM 142 135-146 mmol/L POTASSIUM 4.0 3.5-5.3 mmol/L CHLORIDE 104 98-110 mmol/L CARBON DIOXIDE 31 20-32 mmol/L CALCIUM 9.1 8.6-10.3 mg/dL PROTEIN, TOTAL 6.8 6.1-8.1 g/dL ALBUMIN 4.2 3.6-5.1 g/dL GLOBULIN 2.6 1.9-3.7 g/dL (calc) ALBUMIN/GLOBULIN RATIO 1.6 1.0-2.5 (calc) BILIRUBIN, TOTAL 0.3 0.2-1.2 mg/dL ALKALINE PHOSPHATASE 82 35-144 U/L AST 21 10-35 U/L ALT 17 9-46 U/L CBC (INCLUDES DIFF/PLT) (639 9) Reviewed date:04/14/2025 09:24:05 AM Interpretation: Performing Lab:HELEN [employer], [facility] CenterNsbhWV[address] Carlos Eduardo Valverde Notes/Report: NON-FASTING; NON-FASTING; NON-FASTING; NON-FASTING WHITE BLOOD CELL COUNT 8.8 3.8-10.8 Thousand/ uL RED BLOOD CELL COUNT 4.43 4.20-5.80 Million/uL HEMOGLOBIN 13.8 13.2-17.1 g/dL HEMATOCRIT 42.7 38.5-50.0 % MCV 96.4 80.0-100.0 fL MCH 31.2 27.0-33.0 pg MCHC 32.3 32.0-36.0 g/dL For adults, a slight decrease in the calculated MCHC value (in the range of 30 to 32 g/dL) is most likely not clinically significant; however, it should be interpreted with caution in correlation with other red cell parameters and the patient's clinical condition. RDW 12.0 11.0-15.0 % PLATELET COUNT 239 140-400 Thousand/uL MPV 12.4 7.5-12.5 fL ABSOLUTE NEUTROPHILS 5474 7257-6295 cells/uL ABSOLUTE LYMPHOCYTES 2429 850-3900 cells/uL ABSOLUTE MONOCYTES 519 200-950 cells/uL ABSOLUTE EOSINOPHILS 308 15-500 cells/uL ABSOLUTE BASOPHILS 70 0-200 cells/uL NEUTROPHILS 62.2 LYMPHOCYTES 27.6 MONOCYTES 5.9 EOSINOPHILS 3.5 BASOPHILS 0.8 TSH W/REFLEX TO FT4 (61604) Reviewed date:04/14/2025 09:24:05 AM Interpretation: Performing Lab:CB, [facility] [address], [facility] CenterNdrdHS[address] Carlos Eduardo Valverde Notes/Report: NON-FASTING; NON-FASTING; NON-FASTING; NON-FASTING TSH W/REFLEX TO FT4 0.79 0.40-4.50 mIU/L REASON FOR VISIT Yearly and Med Check Medications Medication SIG (Take, Route, Frequency, Duration) Notes Start Date End Date Status Terazosin HCl 5 MG 1 cap(s) orally once a day (at bedtime); Duration: 90 days Active Atorvastatin Calcium 40 MG 1 tablet Orally Once a day; Duration: 90 days Active Bisoprolol-hydroCHLOR Othiazide 10-6.25 MG Take 1 tablet by mouth once daily Orally Once a day; Duration: 90 days Active Omeprazole 40 MG 1 cap(s) orally once a day; Duration: 90 days Active Breztri Aerosphere 160-9-4.8 MCG/ACT 2 puffs Inhalation Twice a day; Duration: 90 days 03/28/2025 Active Fenofibrate 54 MG 1 tablet with food Orally Once a day; Duration: 90 days Active Finasteride 5 MG 1 tab(s) orally once a day; Duration: 90 days Active Warfarin Sodium 5 MG TAKE ONE TABLET BY MOUTH ON WEDNESDAY, WEDNESDAY AND WEDNESDAY THEN ONE-HALF TABLET ALL OTHER DAYS as DIRECTED FOR 90 DAYS Orally Once a day; Duration: 90 days Active Albuterol Sulfate HFA 108 (90 Base) MCG/ACT 1 puff as needed Inhalation every 4 hrs; Duration: 30 days 10/24/2024 Active Multivitamin MULTIPLE VITAMINS 1 CAP(S) ORALLY ONCE A DAY *Please review and pick correct strength-formulatio n from [employer] options. If intended option is not shown, discontinue and re-order from Quick Search* Active Tylenol Extra Strength 500 MG 2 tab(s) orally Q6H prn Active Immunizations Vaccine Route Administration Date Status Comme nts Fluzone High Dose IM Intramuscular 04/12/2025 Administered Problems Problem Type SNOMED Code ICD Code Onset Dates Problem Status W/U Status Risk Notes Problem Lower urinary tract symptoms due to benign prostatic hypertrophy ([id number]) Benign prostatic hyperplasia with lower urinary tract symptoms, symptom details unspecified (N40.1) Active confirmed Vital Signs Temperature 97.5 degrees Fahrenheit 04/12/20 25 Blood pressure systolic 110 mm Hg 04/12/20 25 Blood pressure diastolic 66 mm Hg 025 Heart Rate 72 irregular /min 04/12/2025 Height 5 ft 9 in in 04/12/2025 Weight 180.6 lbs 04/12/2025 BMI 26.67 kg/m2 04/12/2025 Encounters Encounter Location Date Provider Diagnosis [facility] PED MAL [address] [facility] [address] [place] [address] 04/12/2025 Joann Wilson Hyperlipemia, idiopathic familial E78.5 ; Medicare annual wellness visit, subsequent Z00.00 ; Hypertension, essential I10 ; Paroxysmal atrial fibrillation I48.0 ; Personal history of nicotine dependence Z87.891 ; 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 No changes in plan. Check labs to monitor medication effectiveness and toxicity. I will review labs personally 04/12/2025 Medicare annual wellness visit, subsequent (ICD-10 - Z00.00) Well Visit, Over 65: Care Instructions material was published 04/12/2025 Hypertension, essential (ICD-10 - I10) Well-controll ed on current regimen, no changes 04/12/2025 Paroxysmal atrial fibrillation (ICD-10 - I48.0) On appropriate anticoagulation. No changes in plan 04/12/2025 Personal history of nicotine dependence (ICD-10 - Z87.891) Learning About Benefits of Quitting Smoking material was published 04/12/2025 COPD with chronic bronchitis (ICD-10 - J44.9) No exacerbations , continue current regimen 04/12/2025 BMI 26.0-26.9,adult (ICD-10 - Z68.26) 04/12/2025 Tobacco use disorder (ICD-10 - Z72.0) 04/12/2025 Benign prostatic hyperplasia with lower urinary tract symptoms, symptom details unspecified (ICD-10 - N40.1) 04/12/2025 Immunization(s) administered (ICD-10 - Z23) Plan Of Treatment Medication Medication Name Sig Start Date Stop Date Notes Terazosin HCl 5 MG 1 cap(s) orally once a day (at bedtime); Duration: 90 days Atorvastatin Calcium 40 MG 1 tablet Oral ly Once a day; Duration: 90 days BREZTRI AEROSPHERE 160 mcg-4 .8 mcg-9 mcg/inh 2 puff(s) inhaled 2 times a day Bisoprolol-hydroCHLOROthiazi de 10-6.25 MG Take 1 tablet by mouth once daily Orally Once a day; Duration: 90 days Omeprazole 40 MG 1 cap(s) orally once a day; Duration: 90 days Breztri Aerosphere 160-9-4.8 MCG/ACT 2 puffs Inhalation Twice a day; Duration: 90 days 03/28/2025 Fenofibrate 54 MG 1 tablet with food O rally Once a day; Duration: 90 days Finasteride 5 MG 1 tab(s) orally once a day; Duration: 90 days Warfarin Sodium 5 MG TAKE ONE TABLET BY MOUTH ON WEDNESDAY, WEDNESDAY AND WEDNESDAY THEN ONE-HALF TABLET ALL OTHER DAYS as DIRECTED FOR 90 DAYS Orally Once a day; Duration: 90 days Treatment Notes Assessment Notes Hyperlipemia, idiopathic familial On high-dose statin. No changes in plan. Check labs to monitor medication effectiveness and toxicity. I will review labs personally Medicare annual wellness visit, frankie kamara Well Visit, Over 65: Care Instructions material was published Paroxysmal atrial fibrillation On approp riate anticoagulation. No changes in plan Personal history of nicotine dependence Learning About Benefits of Quitting Smoking material was published Next Appt Details Follow Up: 6 Months,prn, Estee son: Progress Notes * Tae LOEPSDOB:1950 (74 yo M)Acc No.[id number]:04/12/2025 Progress Notes Patient: Tae RICK Provider: ROSALES Lopez :1950 A ge:74 Y S ex:Male Date:04/12/2025 Address:[address] [place] [address], [id number] Pcp:Tre Biswas Subjective: * Chief Complaints: * 1 . Yearly and Med Check. * HPI: g en: Presents today for chronic disease FU and AWV. No acute concerns. Reviewed HRA which is negative for falls, depression, etc. Still very functional. No cognitive concerns. . Does have a living will. Reports stable chronic disease over the past year. Continues to smoke, around 1/2 ppd and no interest in quitting. Declines LDCT chest. He does use his albuterol at least daily. Patient does need labs to monitor his lipid issues. Follows with Coumadin clinic for his A-fib and warfarin monitoring. Has no BPH symptoms on current therapy. * ROS: F UNCTIONAL STATUS: ADLS I ndependent for all ADL/IADL. R ESPIRATORY: See HPI Y es. C ARDIOLOGY: Reviewed, No Symptoms Reported: Y es. C ONSTITUTIONAL: Reviewed, No Symptoms Reported: Y es. D ERMATOLOGY: Reviewed, No Symptoms Reported: Y es. E NT: See HPI No. R eviewed, No Symptoms Reported: Y es. G ASTROENTEROLOGY: Reviewed, No Symptoms Reported: Y es. M USCULOSKELETAL: Joint stiffness y es. J oint pain y es, s houlders. N EUROLOGY: Reviewed, No Symptoms Reported: Y es. P SYCHOLOGY: Reviewed, No Symptoms Reported: Y es. U ROLOGY: See HPI Y es. * Medical History: C OPD with Chronic Bronchitis, Hypertension, Anxiety, BPH, Paroxysmal atrial fibrillation, Esophageal reflux, colonoscopy in October 2013, normal, [facility] 06/23 with nonflow limiting disease, Negatvie low dose CT scan 06/23 and normal again 01/25 and normal 06/30, Normal US of ABD 06/23, Negative Cologuard screen 01/2018 and 02/2021. * Surgical History: n odule removed from voicebox 07/2015. * Hospitalization/Major Diagno stic Procedure: D enies Past Hospitalization. * Family History: F ather: , lung, diagnosed with Cancer. M other: , bone, diagnosed with Cancer. P aternal Grand Father: , diagnosed with Stroke. P aternal Grand Mother: . M aternal Grand Father: . M aternal Grand Mother: , diagnosed with Cancer. P aternal uncle: alive. P aternal aunt: alive. M aternal aunt: . S iblings: alive. C hildren: alive. 4 brother(s) , 7 sister(s) . 1 son(s) , 1 daughter(s) - healthy. . * Social History: S moking A re you a:: current smoker , How often do you smoke cigarettes?: every day, How many cigarettes a day do you smoke?: 6-10, How soon after you wake up do you smoke your first cigarette?: 31-60 min, Are you interested in quitting?: Thinking about quitting. R ecreational drug use: no. Exercise: yes. Home smoke detector use: yes. Caffeine: yes, 3 cups coffee per day, 1 soda q 2days. Living Will: Yes. Alcohol: no. Sexually active: no. Travel outside [place]: no. Occupation: retired. * Medications: T aking Tylenol Extra Strength 500 MG Tablet 2 tab(s) orally Q6H , Notes to Pharmacist: prn, Taking Multivitamin MULTIPLE VITAMINS CAPSULE 1 CAP(S) ORALLY ONCE A DAY , Notes to Pharmacist: *Please review and pick correct strength-formulation from [employer] options. If intended option is not shown, discontinue and re-order from Quick Search*, Taking Albuterol Sulfate HFA 108 (90 Base) MCG/ACT Aerosol Solution 1 puff as needed Inhalation every 4 hrs , Taking Omeprazole 40 MG Capsule Delayed Release 1 cap(s) orally once a day , Taking Bisoprolol-hydroCHLOROthiazide 10-6.25 MG Tablet Take 1 tablet by mouth once daily , Taking Atorvastatin Calcium 40 MG Tablet Take 1 tablet by mouth once daily , Taking Terazosin HCl 5 MG Capsule 1 cap(s) orally once a day (at bedtime) , Taking Warfarin Sodium 5 MG Tablet TAKE ONE TABLET BY MOUTH ON WEDNESDAY, WEDNESDAY AND WEDNESDAY THEN ONE-HALF TABLET ALL OTHER DAYS DIRECTED FOR 90 DAYS , Taking Finasteride 5 MG Tablet 1 tab(s) orally once a day , Taking Fenofibrate 54 MG Tablet Take 1 tablet by mouth once daily , Taking Breztri Aerosphere 160-9-4.8 MCG/ACT Aerosol 2 puffs Inhalation Twice a day , Medication List reviewed and reconciled with the patient * Allergies: N .K.D.A. Objective: * Vitals: N urse: KJ, Pain: 2, Temp: 97.5, RR: 16, HR: 72 irregular, BP: 110/66, Ht: 5 ft 9 in, Wt: 180.6, BMI:26.67. * Examination: G eneral Examination: General P leasant and Cooperative, NAD on RA,. Oral cavity: M oist membranes. Heart: I rregularly irregular,. Lungs: f aint sonorous wheeze, no rhonchi or rales. Abdomen: s oft, NT/ND, BS present. Neurologic Exam: A lert and oriented x 3. Skin: w ithout acute rashes. Peripheral pulses: n ormal (2+) bilaterally. Extremities: n o clubbing, no edema,. neck s upple,. Psych N ormal Mood/Affect. Assessment: * Assessment: 1. [facility], subsequent - Z00.00 (Primary) 2 . 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 H ypertension, essential - I10 ? 4 . P aroxysmal atrial fibrillation - I48.0 5 . P ersonal history of nicotine dependence - Z87.891 6 . 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 7 . B [place] 26.0-26.9,adult - Z68.26 8 . T obacco use disorder - Z72.0 9 . B enign prostatic hyperplasia with lower urinary tract symptoms, symptom details unspecified - N40.1 1 0. I mmunization(s) administered - Z23 ? Plan: * Treatment: 2. H yperlipemia, idiopathic familial Refill Fenofibrate Tablet, 54 MG, 1 tablet with food, Orally, Once a day, 90 days, 90 Tablet, Refills 3; R efill Atorvastatin Calcium Tablet, 40 MG, 1 tablet, Orally, Once a day, 90 days, 90 Tablet, Refills 3. L AB: LIPID PANEL, STANDARD (7600) Value Reference Range T RIGLYCERIDES 162 H <150 - mg/dL * C HOLESTEROL, TOTAL 119 <200 - mg/dL * H DL CHOLESTEROL 45 > OR = 40 - mg/dL * L DL-CHOLESTEROL 50 - mg/dL (calc) * C HOL/HDLC RATIO 2.6 <5.0 - (calc) * N ON HDL CHOLESTEROL 74 <130 - mg/dL (calc) * Arianne Hernandez 04/14/2025 09: 23:39 AM EST > pt informed-he will call back and make an apptThis lab was reviewed by Arianne Hernandez on 04/14/2025 at 09:24 AM EST ?LAB: COMPREHENSIVE METABOLIC PANEL (71298)* Value Reference Range G LUCOSE 106 H 65-99 - mg/dL * U ESTEE NITROGEN (BUN) 17 7-25 - mg/dL * C REATININE 1.18 0.70-1.28 - mg/dL * B UN/CREATININE RATIO SEE NOTE: 6-22 - (calc) * S ODIUM 142 135-146 - mmol/L * P OTASSIUM 4.0 3.5-5.3 - mmol/L * C HLORIDE 104 98-110 - mmol/L * C ARBON DIOXIDE 31 20-32 - mmol/L * C ALCIUM 9.1 8.6-10.3 - mg/dL * P ROTEIN, TOTAL 6.8 6.1-8.1 - g/dL * A LBUMIN 4.2 3.6-5.1 - g/dL * G LOBULIN 2.6 1.9-3.7 - g/dL (calc ) * A LBUMIN/GLOBULIN RATIO 1.6 1.0-2.5 - (calc) * B ILIRUBIN, TOTAL 0.3 0.2-1.2 - mg/dL * A LKALINE PHOSPHATASE 82 35-144 - U/L * A ST 21 10-35 - U/L * A LT 17 9-46 - U/L * E GFR 64 > OR = 60 - mL/min/1 .73m2 * Arianne Hernandez 04/14/2025 09: 23:39 AM EST > pt informed-he will call back and make an apptThis lab was reviewed by Arianne Hernandez on 04/14/2025 at 09:24 AM EST ?LAB: CBC (INCLUDES DIFF/PLT) (1854)* Value Reference Range W ANIA BLOOD CELL COUNT 8.8 3.8-10.8 - Thousan d/uL * R ED BLOOD CELL COUNT 4.43 4.20-5.80 - Million/ uL * H EMOGLOBIN 13.8 13.2-17.1 - g/dL * H EMATOCRIT 42.7 38.5-50.0 - % * M CV 96.4 80.0-100.0 - fL * M CH 31.2 27.0-33.0 - pg * M CHC 32.3 32.0-36.0 - g/dL * R DW 12.0 11.0-15.0 - % * P LATELET COUNT 239 140-400 - Thousand/u L * N EUTROPHILS 62.2 - % * A BSOLUTE NEUTROPHILS 5474 2282-5132 - cells/uL * L YMPHOCYTES 27.6 - % * A BSOLUTE LYMPHOCYTES 2429 850-3900 - cells/uL * M ONOCYTES 5.9 - % * A BSOLUTE MONOCYTES 519 200-950 - cells/uL * E OSINOPHILS 3.5 - % * A BSOLUTE EOSINOPHILS 308 15-500 - cells/uL * B ASOPHILS 0.8 - % * A BSOLUTE BASOPHILS 70 0-200 - cells/uL * M PV 12.4 7.5-12.5 - fL * Arianne Hernandez 04/14/2025 09: 23:39 AM EST > pt informed-he will call back and make an apptThis lab was reviewed by Arianne Hernandez on 04/14/2025 at 09:24 AM EST ?LAB: TSH W/REFLEX TO FT4 (87750)* Value Reference Range T SH W/REFLEX TO FT4 0.79 0.40-4.50 - mIU/L * DavidDontevandana Velasquez 04/14/2025 09: 23:39 AM EST > pt informed-he will call back and make an apptThis lab was reviewed by Arianne Hernandez on 04/14/2025 at 09:24 AM EST Notes: On high-dose statin. No changes in plan. Check labs to monitor medication effectiveness and toxicity. I will review labs personally? 3.?Hypertension, essential? Refill Bisoprolol-hydroCHLOROthiazide Tablet, 10-6.25 MG, Take 1 tablet by mouth once daily, Orally, Once a day, 90 days, 90, Refills 3.?LAB: LIPID PANEL, STANDARD (7600)* Value Reference Range T RIGLYCERIDES 162 H <150 - mg/dL * C HOLESTEROL, TOTAL 119 <200 - mg/dL * H DL CHOLESTEROL 45 > OR = 40 - mg/dL * L DL-CHOLESTEROL 50 - mg/dL (calc) * C HOL/HDLC RATIO 2.6 <5.0 - (calc) * N ON HDL CHOLESTEROL 74 <130 - mg/dL (calc) * DavidArianne Ron 04/14/2025 09: 23:39 AM EST > pt informed-he will call back and make an apptThis lab was reviewed by Arianne Hernandez on 04/14/2025 at 09:24 AM EST ?LAB: COMPREHENSIVE METABOLIC PANEL (76627)* Value Reference Range G LUCOSE 106 H 65-99 - mg/dL * U ESTEE NITROGEN (BUN) 17 7-25 - mg/dL * C REATININE 1.18 0.70-1.28 - mg/dL * B UN/CREATININE RATIO SEE NOTE: 622 - (calc) * S ODIUM 142 135-146 - mmol/L * P OTASSIUM 4.0 3.5-5.3 - mmol/L * C HLORIDE 104 98-110 - mmol/L * C ARBON DIOXIDE 31 20-32 - mmol/L * C ALCIUM 9.1 8.6-10.3 - mg/dL * P ROTEIN, TOTAL 6.8 6.1-8.1 - g/dL * A LBUMIN 4.2 3.6-5.1 - g/dL * G LOBULIN 2.6 1.9-3.7 - g/dL (calc ) * A LBUMIN/GLOBULIN RATIO 1.6 1.0-2.5 - (calc) * B ILIRUBIN, TOTAL 0.3 0.2-1.2 - mg/dL * A LKALINE PHOSPHATASE 82 35-144 - U/L * A ST 21 10-35 - U/L * A LT 17 9-46 - U/L * E GFR 64 > OR = 60 - mL/min/1 .73m2 * Arianne Hernandez 04/14/2025 09: 23:39 AM EST > pt informed-he will call back and make an apptThis lab was reviewed by Arianne Hernandez on 04/14/2025 at 09:24 AM EST ?LAB: CBC (INCLUDES DIFF/PLT) (1621)* Value Reference Range W ANIA BLOOD CELL COUNT 8.8 3.8-10.8 - Thousan d/uL * R ED BLOOD CELL COUNT 4.43 4.20-5.80 - Million/ uL * H EMOGLOBIN 13.8 13.2-17.1 - g/dL * H EMATOCRIT 42.7 38.5-50.0 - % * M CV 96.4 80.0-100.0 - fL * M CH 31.2 27.0-33.0 - pg * M CHC 32.3 32.0-36.0 - g/dL * R DW 12.0 11.0-15.0 - % * P LATELET COUNT 239 140-400 - Thousand/u L * N EUTROPHILS 62.2 - % * A BSOLUTE NEUTROPHILS 5474 9182-1604 - cells/uL * L YMPHOCYTES 27.6 - % * A BSOLUTE LYMPHOCYTES 2429 850-3900 - cells/uL * M ONOCYTES 5.9 - % * A BSOLUTE MONOCYTES 519 200-950 - cells/uL * E OSINOPHILS 3.5 - % * A BSOLUTE EOSINOPHILS 308 15-500 - cells/uL * B ASOPHILS 0.8 - % * A BSOLUTE BASOPHILS 70 0-200 - cells/uL * M PV 12.4 7.5-12.5 - fL * Arianne Hernandez Ron 04/14/2025 09: 23:39 AM EST > pt informed-he will call back and make an apptThis lab was reviewed by Arianne Hernandez on 04/14/2025 at 09:24 AM EST ?LAB: TSH W/REFLEX TO FT4 (30624)* Value Reference Range T SH W/REFLEX TO FT4 0.79 0.40-4.50 - mIU/L * DavidArianne Ron 04/14/2025 09: 23:39 AM EST > pt informed-he will call back and make an apptThis lab was reviewed by Arianne Hernandez on 04/14/2025 at 09:24 AM EST Clinical Notes: Well-controlled on current regimen, no changes??4.?Paroxysmal atrial fibrillation? Refill Warfarin Sodium Tablet, 5 MG, TAKE ONE TABLET BY MOUTH ON WEDNESDAY, WEDNESDAY AND WEDNESDAY THEN ONE-HALF TABLET ALL OTHER DAYS as DIRECTED FOR 90 DAYS, Orally, Once a day, 90 days, 90, Refills 3. ?LAB: LIPID PANEL, STANDARD (7600)* Value Reference Range T RIGLYCERIDES 162 H <150 - mg/dL * C HOLESTEROL, TOTAL 119 <200 - mg/dL * H DL CHOLESTEROL 45 > OR = 40 - mg/dL * L DL-CHOLESTEROL 50 - mg/dL (calc) * C HOL/HDLC RATIO 2.6 <5.0 - (calc) * N ON HDL CHOLESTEROL 74 <130 - mg/dL (calc) * Arianne Hernandez Ron 04/14/2025 09: 23:39 AM EST > pt informed-he will call back and make an apptThis lab was reviewed by Arianne Hernandez on 04/14/2025 at 09:24 AM EST ?LAB: COMPREHENSIVE METABOLIC PANEL (55912)* Value Reference Range G LUCOSE 106 H 65-99 - mg/dL * U ESTEE NITROGEN (BUN) 17 7-25 - mg/dL * C REATININE 1.18 0.70-1.28 - mg/dL * B UN/CREATININE RATIO SEE NOTE: 6-22 - (calc) * S ODIUM 142 135-146 - mmol/L * P OTASSIUM 4.0 3.5-5.3 - mmol/L * C HLORIDE 104 98-110 - mmol/L * C ARBON DIOXIDE 31 20-32 - mmol/L * C ALCIUM 9.1 8.6-10.3 - mg/dL * P ROTEIN, TOTAL 6.8 6.1-8.1 - g/dL * A LBUMIN 4.2 3.6-5.1 - g/dL * G LOBULIN 2.6 1.9-3.7 - g/dL (calc ) * A LBUMIN/GLOBULIN RATIO 1.6 1.0-2.5 - (calc) * B ILIRUBIN, TOTAL 0.3 0.2-1.2 - mg/dL * A LKALINE PHOSPHATASE 82 35-144 - U/L * A ST 21 10-35 - U/L * A LT 17 9-46 - U/L * E GFR 64 > OR = 60 - mL/min/1 .73m2 * Arianne Hernandez 04/14/2025 09: 23:39 AM EST > pt informed-he will call back and make an apptThis lab was reviewed by Arianne Hernandez on 04/14/2025 at 09:24 AM EST ?LAB: CBC (INCLUDES DIFF/PLT) (2576)* Value Reference Range W ANIA BLOOD CELL COUNT 8.8 3.8-10.8 - Thousan d/uL * R ED BLOOD CELL COUNT 4.43 4.20-5.80 - Million/ uL * H EMOGLOBIN 13.8 13.2-17.1 - g/dL * H EMATOCRIT 42.7 38.5-50.0 - % * M CV 96.4 80.0-100.0 - fL * M CH 31.2 27.0-33.0 - pg * M CHC 32.3 32.0-36.0 - g/dL * R DW 12.0 11.0-15.0 - % * P LATELET COUNT 239 140-400 - Thousand/u L * N EUTROPHILS 62.2 - % * A BSOLUTE NEUTROPHILS 5474 9138-3791 - cells/uL * L YMPHOCYTES 27.6 - % * A BSOLUTE LYMPHOCYTES 2429 850-3900 - cells/uL * M ONOCYTES 5.9 - % * A BSOLUTE MONOCYTES 519 200-950 - cells/uL * E OSINOPHILS 3.5 - % * A BSOLUTE EOSINOPHILS 308 15-500 - cells/uL * B ASOPHILS 0.8 - % * A BSOLUTE BASOPHILS 70 0-200 - cells/uL * M PV 12.4 7.5-12.5 - fL * Arianne Hernandez 04/14/2025 09: 23:39 AM EST > pt informed-he will call back and make an apptThis lab was reviewed by Arianne Hernandez on 04/14/2025 at 09:24 AM EST ?LAB: TSH W/REFLEX TO FT4 (67159)* Value Reference Range T SH W/REFLEX TO FT4 0.79 0.40-4.50 - mIU/L * Arianne Hernandez 04/14/2025 09: 23:39 AM EST > pt informed-he will call back and make an apptThis lab was reviewed by Arianne Hernandez on 04/14/2025 at 09:24 AM EST Notes: On appropriate anticoagulation. No changes in plan??5.?Personal history of nicotine dependence? Notes: Learning About Benefits of Quitting Smoking material was published?? 6.?COPD with chronic bronchitis? Refill Breztri Aerosphere Aerosol, 160-9-4.8 MCG/ACT, 2 puffs, Inhalation, Twice a day, 90 days, 3,Refills 3;?Stop BREZTRI AEROSPHERE aerosol, 160 mcg-4.8 mcg-9 mcg/inh, 2 puff(s), inhaled, 2 times a day.?LAB: LIPID PANEL, STANDARD ([id number])* Value Reference Range T RIGLYCERIDES 162 H <150 - mg/dL * C HOLESTEROL, TOTAL 119 <200 - mg/dL * H DL CHOLESTEROL 45 > OR = 40 - mg/dL * L DL-CHOLESTEROL 50 - mg/dL (calc) * C HOL/HDLC RATIO 2.6 <5.0 - (calc) * N ON HDL CHOLESTEROL 74 <130 - mg/dL (calc) * Arianne Hernandez 04/14/2025 09: 23:39 AM EST > pt informed-he will call back and make an apptThis lab was reviewed by Arianne Hernandez on 04/14/2025 at 09:24 AM EST ?LAB: COMPREHENSIVE METABOLIC PANEL ([id number])* Value Reference Range G LUCOSE 106 H 65-99 - mg/dL * U ESTEE NITROGEN (BUN) 17 7-25 - mg/dL * C REATININE 1.18 0.70-1.28 - mg/dL * B UN/CREATININE RATIO SEE NOTE: 6-22 - (calc) * S ODIUM 142 135-146 - mmol/L * P OTASSIUM 4.0 3.5-5.3 - mmol/L * C HLORIDE 104 98-110 - mmol/L * C ARBON DIOXIDE 31 20-32 - mmol/L * C ALCIUM 9.1 8.6-10.3 - mg/dL * P ROTEIN, TOTAL 6.8 6.1-8.1 - g/dL * A LBUMIN 4.2 3.6-5.1 - g/dL * G LOBULIN 2.6 1.9-3.7 - g/dL (calc ) * A LBUMIN/GLOBULIN RATIO 1.6 1.0-2.5 - (calc) * B ILIRUBIN, TOTAL 0.3 0.2-1.2 - mg/dL * A LKALINE PHOSPHATASE 82 35-144 - U/L * A ST 21 10-35 - U/L * A LT 17 9-46 - U/L * E GFR 64 > OR = 60 - mL/min/1 .73m2 * Arianne Hernandez 04/14/2025 09: 23:39 AM EST > pt informed-he will call back and make an apptThis lab was reviewed by Arianne Hernandez on 04/14/2025 at 09:24 AM EST ?LAB: CBC (INCLUDES DIFF/PLT) (5599)* Value Reference Range W ANIA BLOOD CELL COUNT 8.8 3.8-10.8 - Thousan d/uL * R ED BLOOD CELL COUNT 4.43 4.20-5.80 - Million/ uL * H EMOGLOBIN 13.8 13.2-17.1 - g/dL * H EMATOCRIT 42.7 38.5-50.0 - % * M CV 96.4 80.0-100.0 - fL * M CH 31.2 27.0-33.0 - pg * M CHC 32.3 32.0-36.0 - g/dL * R DW 12.0 11.0-15.0 - % * P LATELET COUNT 239 140-400 - Thousand/u L * N EUTROPHILS 62.2 - % * A BSOLUTE NEUTROPHILS 5474 4546-9944 - cells/uL * L YMPHOCYTES 27.6 - % * A BSOLUTE LYMPHOCYTES 2429 850-3900 - cells/uL * M ONOCYTES 5.9 - % * A BSOLUTE MONOCYTES 519 200-950 - cells/uL * E OSINOPHILS 3.5 - % * A BSOLUTE EOSINOPHILS 308 15-500 - cells/uL * B ASOPHILS 0.8 - % * A BSOLUTE BASOPHILS 70 0-200 - cells/uL * M PV 12.4 7.5-12.5 - fL * Arianne Hernandez 04/14/2025 09: 23:39 AM EST > pt informed-he will call back and make an apptThis lab was reviewed by Arianne Hernandez on 04/14/2025 at 09:24 AM EST ?LAB: TSH W/REFLEX TO FT4 (04137)* Value Reference Range T SH W/REFLEX TO FT4 0.79 0.40-4.50 - mIU/L * Arianne Hernandez 04/14/2025 09: 23:39 AM EST > pt informed-he will call back and make an apptThis lab was reviewed by Arianne Hernandez on 04/14/2025 at 09:24 AM EST Clinical Notes: No exacerbations, continue current regimen??7.?Benign prostatic hyperplasia with lower urinary tract symptoms, symptom details unspecified? Refill Finasteride Tablet, 5 MG, 1 tab(s), orally, once a day, 90 days, 90, Refills 3;?Refill Terazosin HCl Capsule, 5 MG, 1 cap(s), orally, once a day (at bedtime), 90 days, 90, Refills 3.??8.?Others? Refill Omeprazole Capsule Delayed Release, 40 MG, 1 cap(s), orally, once a day, 90 days, 90, Refills 3.?? * Immunizations: Fluzone High Dose : 0.5 mL (Dose No:1) (Route: Intramuscular) given by LINDA Toure on Left Deltoid (Immunization(s) administered) * Procedure Codes: 9 0662 Influenza High Dose Vaccine >65 Years Old, G0008 ADMINISTRATION-FLU VACCINE MEDICARE ONLY, G0439 ANNUAL WELLNESS VST; PPS SUBSQT VST, 1123F ADVANCED DIRECTIVE - HAS A LIVING WILL, 3017F COLORECTAL CA SCREEN DOC REV, G8420 BMI documented as normal, no follow up required., G8510 NEGATIVE SCREENING F/U NOT REQUIRED, G9902 Pt scrn tbco and id as user, G8752 Most recent systolic blood pressure < 140mmhg, G8754 Most recent diastolic blood pressure < 90mmhg, G9744 PATIENT NOT ELIG D/T ACTIVE DX HTN * Preventive Medicine: Counseling: L iving will H as living will. S moking P atient counselled on the dangers of tobacco use and urged to quit. 06/12/2024. WAI Screening: F alls: Future screening for fall risks H ave you had two or more falls in the past year? N o, H ave you had any falls with injury in the past year? N o. Depression Screening: P HQ 2 F eeling down depressed or hopeless N o. Immunizations: i nfluenza H ave you had a flu shot since the most recent February 05 ? Y es. P neumonia vaccine: Status for Older Adults A re you up-to-date on your pneumonia vaccine? yes or no y es. T dap d eclined. S hingrix R efuses. C OVID Completed series. R SV vaccination C ompleted for season. Screening / Special Tests: C olonoscopy n eg cologuard 2020 and yearly FIT since that time. P SA b eyond screening age. L belkis Cancer Screening D eclined but discussed. A AA screen H as been done, normal. * Follow Up: 6 Months,prn * * Sign off status: Completed true * Provider: ROSALES Lopez Date: 06/12/2024 Generated for Reina danielle/Simon/eTransmitting on: 1 07/10/2024 10:26 AM EST History and Physical Notes * Examination Category Sub-Category Detail Notes Category Not es General Examination Heart: Irregularly irregular , Lungs: faint sonorous wheez e, no rhonchi or rales Abdomen: soft, NT/ND, BS pres ent Extremities: no clubbing, no tha a, Skin: without acute rashes Neurologic Exam: Alert and oriented x 3 Oral cavity: Moist membranes Peripheral pulses: normal (2+) bilatera lly neck supple, General Pleasant and Coopera tive, NAD on RA, Psych Normal Mood/Affect
--- OUTSIDE RECORDS SUMMARY | 2025-05-09 10:27 | XMS_ITS | Clinical Summary ---
Author Organization [facility] Address [address] [id number] Care Team Providers Care Material Requirements Worker Name Role Phone Pcp, No Primary Care [...] 08/11/1996 UKY-Zoster Vaccines (1 of 2) 08/18/1999 [id number] Vaccine (4 - season) 2025 06/17/2021, 08/14/2020, [...] this topic Insurance [employer] Care Teams Material Requirements Worker Relationship Specialty Start Date End Date Pcp, Arianna [address] [place] [address] PCP - General Family Medicine 03/03/24
--- OUTSIDE RECORDS SUMMARY | 2025-05-09 10:27 | XMS_ITS | Patient Health Record ---
Author Organization [facility] Address [address] [place] [address] Care Team Providers Care Sheep Killer Name Role Phone Tre Biswas Primary Care Provider [phone] Joann Wilson Unavailable [phone] Lorri Morgan Unavailable [phone] Migration, Provider Unavailable Unavailable Allergies No Known Allergies Results Component Value Reference Range Notes LIPID PANEL, STANDARD (7600) Reviewed date:04/14/2025 09:24:04 AM Interpretation: Performing Lab:HELEN, Here@ [facility] [id number] [facility] HospitalJeremiahNfaxDZ[address] Carlos Eduardo Valverde Notes/Report: NON-FASTING; NON-FASTING; NON-FASTING; [...] LDL-C. [place] ALATORRE et al. CLARA. 2013;310(19): 8728-7889 (http://education.[employer].Brayola/faq/OAR925) CHOL/HDLC RATIO 2.6 <5.0 (calc) NON HDL CHOLESTEROL 74 <130 mg/dL (calc) For patients with diabetes plus 1 major ASCVD risk factor, treating to a non-HDL-C goal of <100 mg/dL (LDL-C of <70 mg/dL) is considered a therapeutic option. COMPREHENSIVE METABOLIC PANLuna Jorgensen ([id number]) Reviewed date:04/14/2025 09:24:04 AM Interpretation: Performing Lab:HE[facility] [id number] [facility] HospitalIspiHB[address] Carlos Eduardo Valverde Notes/Report: NON-FASTING; NON-FASTING; NON-FASTING; [...] Reviewed date:04/14/2025 09:24:05 AM Interpretation: Performing Lab:HELEN [facility] Asnu0003 [facility], [facility] HospitalZqamPT[address] Carlos Eduardo Valverde Notes/Report: NON-FASTING; NON-FASTING; NON-FASTING; [...] MPV 12.4 7.5-12.5 fL ABSOLUTE NEUTROPHILS 5474 0322-2669 cells/uL ABSOLUTE LYMPHOCYTES 2429 850-3900 cells/uL ABSOLUTE MONOCYTES 519 200-950 cells/uL ABSOLUTE EOSINOPHILS 308 15-500 cells/uL ABSOLUTE BASOPHILS 70 0-200 cells/uL NEUTROPHILS 62.2 LYMPHOCYTES 27.6 MONOCYTES 5.9 EOSINOPHILS 3.5 BASOPHILS 0.8 TSH W/REFLEX TO FT4 (99933) Reviewed date:04/14/2025 09:24:05 AM Interpretation: Performing Lab:CB, [facility] [id number] [facility] CenterPhlhRE[address] Carlos Eduardo Valverde Notes/Report: NON-FASTING; NON-FASTING; NON-FASTING; NON-FASTING TSH W/REFLEX TO FT4 0.79 0.40-4.50 mIU/L M-PHA INR Fingerstick Reviewed date:08/16/2024 [...] SECONDARY TO AMI M-PHA INR Fingerstick Reviewed date:03/28/2025 02:32:28 PM [...] review and pick correct strength-formulatio n from [employer]Bound options. If intended option is not shown, [...] Vaccine Route Administration Date Status Comme nts Arexvy IM Intramuscular 05/12/2023 Administered Fluvirin (MEDICARE ONLY) IM Intramuscular 03/06/2016 Admin istered Fluzone High Dose IM Intramuscular 02/20/2020 Administered Fluzone High Dose IM Intramuscular 03/20/2021 Administered Fluzone High Dose IM Intramuscular 05/12/2023 Administered Fluzone High Dose IM Intramuscular 02/18/2024 Administered Fluzone High Dose IM Intramuscular 04/12/2025 Administered Influenza (Fluzone)--Medicare only IM Intramuscular 03/09/2017 Administered Pneumovax 23 IM Intramuscular 03/06/2016 Administered Prevnar PCV-13 (Pneumococcal conjugate 13) IM Intramuscular 03/09/2017 Administered Prevnar PCV-20 (Pneumococcal conjugate 20) IM Intramuscular 11/11/2022 Administered Problems Problem Type SNOMED Code ICD Code Onset Dates Problem Status W/U Status Risk Notes Problem Paroxysmal atrial fibrillation (180376930) Paroxysmal atrial fibrillation (I48.0) Active confirmed Problem Chronic obstructive pulmonary disease with acute lower respiratory infection (751780446) Chronic obstructive pulmonary disease with acute lower respiratory infection (J44.0) Active confirmed Problem Palpitations (02934618) Palpitations (R00.2) Active confirmed Problem Weakness (71813687) Weakness (R53.1) Active con firmed Problem Nicotine dependence (61216378) Personal history of nicotine dependence (Z87.891) Active confirmed Problem Tobacco use (314176791) Tobacco use disorder (Z72.0) Active confirmed Problem Hyperlipidemia (90998488) Hyperlipemia, 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 Problem Essential hypertension (60825687) Hypertension, essential (I10) Active confirmed Problem Body mass index 25-29 - overweight (838752617) BMI 25.0-25.9,adult (Z68.25) Active confirmed Problem Chronic obstructive pulmonary disease (42525618) 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 Problem Orthostatic hypotension (73644983) Orthostasis (I95.1) Active confirmed Problem Gastroesophageal reflux disease (707139361) Gastroesophageal reflux disease, esophagitis presence not specified (K21.9) Active confirmed Problem Body mass index 25-29 - overweight (518448822) BMI 28.0-28.9,adult (Z68.28) Active confirmed Problem Ataxia (71124090) Ataxia (R27.0) Active confirm ed Problem Syncope and collapse (444767936) Pre-syncope (R55) Active confirmed Problem Pulmonary nodule (545411739) Pulmonary nodule (R91.1) Active confirmed Problem Oropharyngeal dysphagia (57263291) Oropharyngeal dysphagia (R13.12) Active confirmed Problem Abdominal aortic aneurysm without rupture (disorder) (77745634) Abdominal aortic aneurysm (AAA) without rupture (I71.4) Active confirmed Problem Lower urinary tract symptoms due to benign prostatic hypertrophy (19829404006404) Benign prostatic hyperplasia with lower urinary tract symptoms, symptom details unspecified (N40.1) Active confirmed Vital Signs Heart Rate 72 irregular /min 04/12/2025 Temperature 97.5 degrees Fahrenheit 04/12/2025 Blood pressure diastolic 66 mm Hg 04/12/2025 Height 5 ft 9 in in 04/12/2025 Blood pressure systolic 110 mm Hg 04/12/2025 Weight 180.6 lbs 04/12/2025 BMI 26.67 kg/m2 04/12/2025 Encounters Encounter Location Date Provider Diagnosis [facility] [address] [facility] [address] [place] [address] 09/09/2024 Provider Migration Hyperlipemia, idiopathic familial E78.5 ; Hypertension, essential I10 ; Paroxysmal atrial fibrillation I48.0 and COPD with chronic bronchitis J44.9 [facility] [address] [place] [address] 04/12/2025 Joann Wilson Hyperlipemia, idiopathic familial E78.5 ; Medicare annual wellness visit, subsequent Z00.00 ; Hypertension, essential I10 ; Paroxysmal atrial fibrillation I48.0 ; Personal history of nicotine dependence Z87.891 ; COPD with chronic bronchitis J44.9 ; BMI 26.0-26.9,adult Z68.26 ; Tobacco use disorder Z72.0 ; Benign prostatic hyperplasia with lower urinary tract symptoms, symptom details unspecified N40.1 and Immunization(s) administered Z23 [facility] [address] [place] [address] 10/24/2024 Tre Besson [facility] [address] [place] [address] 11/20/2024 Tre Besson [facility] ERIN [address] [address] 03/28/2025 Lorri Morgan COPD with chronic bronchitis J44.9 [facility] [address] [address] 03/28/2025 Tre Besson [facility] [address] [address] 04/03/2025 Joann Wilson Assessments Encounter Date Diagnosis (ICD Code) Assessment Notes Treatment Notes Treatment Clinical Notes Section Notes 09/09/2024 Hyperlipemia, idiopathic familial (ICD-10 - E78.5) 03/28/2025 COPD with chronic bronchitis (ICD-10 - J44.9) 04/12/2025 Hyperlipemia, idiopathic familial (ICD-10 - E78.5) On high-dose statin. No changes in plan. Check labs to monitor medication effectiveness and toxicity. I will review labs personally 04/12/2025 Medicare annual wellness visit, subsequent (ICD-10 - Z00.00) Well Visit, Over 65: Care Instructions material was published 04/12/2025 Hypertension, essential (ICD-10 - I10) Well-control ed on current regimen, no changes 09/09/2024 [...] End Date [employer] [address] [place] [address] [phone] [id number] Tae Wagoner Self - patient is the [...]
[2025-05-09 13:19] LABS: PHA INR Fingerstick 2.4 (0.9-1.1)
== END 2025-05-09 13:20 ==
LOC: ACC 10:25
PROVIDERS: PCP Internal Medicine Adolescent Medicine; Visit Provider Internal Medicine Adolescent Medicine
DX: I48.91 Unspecified atrial fibrillation (principal); Z79.01 Long term (current) use of anticoagulants
CPT/HCPCS: 85610; 99211; G0463

== ENCOUNTER 2025-05-15 12:28 | Outpatient (CLI) | payer MEDICARE, SELFPAY ==
--- NOTE | 2025-05-15 13:00 | CA_ITS ---
APPROVED REPORT EXAM: Comprehensive 2D, Doppler, and color-flow Echocardiogram Refining Supervisor: Shelli Gill RT(R) Ht: 5 ft 11 in Wt: 182lbs BSA: 2.03 BP: 157/73 mmHg Indications: syncope, AFIB, mod MR on previous echo, smoker 2D Dimensions IVSd 1.27 cm M: 0.6-1.2 LVEF (Visual) 54.30 % PWd 0.98 cm M: 0.6 - 1.2 LVEF (Preston's) 56.80 % M: 52 - 72 LVDd 4.27 cm M: 4.2 - 5.9 LV Volume 104.20 mL M: 62 - 150 LVDs 3.08 cm M: 2.5 - 4.0 LV Volume Index 51.3 mL/m2 M: 34 - 74 LA Volume 25.60 mL LA Volume Index 12.61 mL/m2 (M/F) 16-34 EF AP4 63.40 % EF AP2 49.7 % EF BP 56.8 % GL Strain -18.3 % M-Mode Dimensions RVDd 3.18 cm (0.9-2.6) LA Diam 3.20 cm (1.9-4.0) LVDd 4.53 cm (3.5-5.7) LVDs 3.01 cm (3.5-5.7) IVSd 1.02 cm (0.6-1.1) PWd 0.93 cm (0.6-1.1) EF (Teich) 62.40% FS 33.60% EDV (Teich) 93.90 mL ESV (Teich) 35.30 mL LV Diastology E Decel Time 193 (160-240 msec) E/A Ratio 0.9 Mitral Valve MV E Max Kendell. 85.0 (40-130 cm/s) MV A Velocity 91.0 (40-130 cm/s) E/A Ratio 0.93 MV PHT 57.0 ms Tricuspid Valve TR P. Velocity 262.00 cm/s Left Ventricle The left ventricle is normal size. Left ventricular systolic function is normal. The left ventricular ejection fraction is within the normal range. There is increased left ventricular wall thickness. There is normal LV segmental wall motion. Transmitral Doppler flow pattern suggests impaired LV relaxation. LVEF is 55% Right Ventricle The right ventricle is mildly dilated. The right ventricular systolic function is normal. Atria The left atrium is mildly dilated. The right atrium is mildly dilated. There is no color Doppler evidence of interatrial shunt. Aortic Valve The aortic valve is mildly thickened. There is no hemodynamically significant aortic valvular stenosis. Trace aortic regurgitation is present. Mitral Valve The mitral valve is normal in structure. No evidence of mitral valve stenosis. Mild to moderate mitral regurgitation is present. Tricuspid Valve The tricuspid valve leaflets are thin and pliable. Mild tricuspid regurgitation. RVSP is 25-30 mmHg. Pulmonic Valve The pulmonary valve is grossly normal in structure. Trace pulmonic valve regurgitation is present. Great Vessels The aortic root is normal in size. IVC is normal in size and collapses >50% with inspiration. Pericardium There is no pericardial effusion. Other Information Study Quality: Fair Conclusion Normal biventricular systolic function. Mild RV dilation. Mild biatrial dilation. Mild to moderate MR. Mild TR. Electronically signed by : Alexandra Munzo MD 05/27/2025 15:22:33
== END 2025-05-15 23:59 | disposition home or self-care (01) ==
LOC: RT 12:29
PROVIDERS: PCP Internal Medicine Adolescent Medicine; Visit Provider Nurse Practitioner
DX: R55 Syncope and collapse (principal)
CPT/HCPCS: 93306